=== PATIENT | male | born 1955 | race Hispanic/Latino ===

== ENCOUNTER 2017-10-31 11:37 | Day surgery (SDC) | payer OTHER ==
--- OUTSIDE RECORDS SUMMARY | 2017-10-31 11:40 | XMS REPORT ---
:1955 Author Organization eClinicalWorks Care Team Providers Name Role Phone Julius Sandeep Provider Role Unavailable Allergies No Known Allergies Problems Problem Type Condition Code Onset Dates Condition Status Assessment Acute non-recurrent maxillary J01.00 Active sinusitis Problem Nonintractable headache, unspecified R51 Active chronicity pattern, unspecified headache type Assessment Upper respiratory tract infection, J06.9 Active unspecified type Problem Prediabetes R73.03 Active Problem Cough R05 Active Problem Neuropathy G62.9 Active Problem HTN (hypertension), benign I10 Active Problem 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 Problem Bronchitis J40 Active Problem Obstructive sleep apnea (adult) G47.33 Active (pediatric) Medications Medication Code Code Instructions Start End Status Dosage System Date Date Candesartan Cilexetil [facility] 32469667804 32 MG Orally Active 1 tablet Once a day ProAir RespiClick [facility] 93506354860 108 (90 Base) Active 2 puffs MCG/ACT as needed Inhalation every 6 hrs Furosemide ND 68670762320 40 MG Orally Active 1 tablet Once a day Spironolactone ND 73690578292 25 MG Orally Active 1 tablet Once a day with food Amoxicillin-Pot ND 65199237473 875-125 MG Oct 08Oct Active 1 tablet Clavulanate Orally every 2017 18, 12 hrs 2018 Lyrica [facility] 11940920146 75 MG Orally Active 1 capsule Once a day Hydrochlorothiazide ND 47086004736 25 MG Orally Active 1 tablet Once a day in the morning Results No Known Results Summary Purpose eClinicalWorks Submission
--- OUTSIDE RECORDS SUMMARY | 2017-10-31 11:40 | XMS REPORT ---
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 Problem Bronchitis J40 Active Problem Obstructive sleep apnea (adult) G47.33 Active (pediatric) Assessment Prediabetes R73.03 Active Assessment Nonintractable headache, unspecified R51 Active chronicity pattern, unspecified headache type Assessment Change in bowel habits R19.4 Active Assessment Obstructive sleep apnea (adult) G47.33 Active (pediatric) Assessment 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 Assessment Abdominal pain, right lateral R10.9 Active Medications Medication Code Code Instructions Start End Status Dosage System Date Date Candesartan Cilexetil [facility] 01743513444 32 MG Orally Active 1 tablet Once a day Furosemide ND 71409599783 40 MG Orally Active 1 tablet Once a day Lyrica ND 02351012888 75 MG Orally Active 1 capsule Once a day ProAir RespiClick [facility] 17086272971 108 (90 Base) Active 2 puffs MCG/ACT as needed Inhalation every 6 hrs Hydrochlorothiazide ND 00470167119 25 MG Orally Active 1 tablet Once a day in the morning Spironolactone ND 92948252488 25 MG Orally Active 1 tablet Once a day with food Results No Known Results Summary Purpose eClinicalWorks Submission
--- OUTSIDE RECORDS SUMMARY | 2017-10-31 11:40 | XMS REPORT ---
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 47489854773 40 MG Orally Active 1 tablet Once a day ProAir RespiClick [facility] 26234839706 108 (90 Base) Active 2 puffs MCG/ACT as needed Inhalation every 6 hrs Spironolactone ND 94776915356 25 MG Orally Oct Active 1 tablet Once a day , with food 2017 Hydrochlorothiazide ND 91147544276 25 MG Orally Active 1 tablet Once a day in the morning Lyrica ND 44398600413 75 MG Orally Active 1 capsule Once a day Candesartan Cilexetil ND 83040902867 32 MG Orally Active 1 tablet Once a day Results No Known Results Summary Purpose eClinicalWorks Submission
[2017-10-31] MEDS ORDERED: Ringers Lactate 1,000 ML IV ONE (12:36)
[2017-10-31] MEDS ORDERED: PROPOFOL 200 MG/20 ML VIAL IV ONE (14:13)
[2017-10-31] MEDS ORDERED: LIDOCAINE 1% MPF 2 ML AMPULE ONE (14:14)
--- NOTE | 2017-11-01 01:29 | OP ---
Date of Procedure: 10/31/2017 Surgeon: Delroy Petersen MD Procedure To Be Performed: Colonoscopy. Performing Physician: Delroy Petersen M.D. Indication For Procedure: Modification of bowel habits and proctalgia. Plan For Anesthesia: Monitored anesthesia care. Complexity: Average. Technique: After obtaining informed consent from the patient and explaining risks and complications which include, but are not limited to bleeding, infection, perforation, and anesthesia complications, the patient was placed in the left lateral position and sedation was given. From then on, a digital rectal exam was performed and a scope was inserted into the rectum and carefully guided up till the cecum. Subsequently, the scope was gradually withdrawn while carefully examining the mucosa. Qualit y of prep was fair with [place] prep score 2+2+2 equal to 6 x 9. Scope withdrawal time was 11 minutes . Findings: Normal digital rectal exam. Grade 1 internal hemorrhoids found on retroflexion. A few sm all diverticula seen in the sigmoid. A 4-mm polyp was seen in the sigmoid, removed with hot biopsy. Diminutive polyp was seen in the transverse colon. This was removed by cold forceps. Both polyps s ent to pathology for analysis. No other gross abnormality was seen in the colon. Complications: None. Tolerance To Anesthesia: Excellent. Postoperative Diagnoses: Diverticulosis, polyps. Plan: 1.Await pathology results. 2.Follow up in the GI clinic in 2 weeks. 3.Repeat colonoscopy in 3-5 years based on pathology. US/MODL Voice ID: [id number] Report ID: [id number]
== END 2017-10-31 15:14 | disposition home health service (06) ==
LOC: OR 11:37
PROVIDERS: ATTEND Internal Medicine Gastroenterology
PROC: 0DBL8ZX Excision of Transverse Colon, Via Natural or Artificial Opening Endoscopic, Diagnostic (ICD-10-PCS; 2017-10-31)
PROC: 0DBN8ZX Excision of Sigmoid Colon, Via Natural or Artificial Opening Endoscopic, Diagnostic (ICD-10-PCS; principal; 2017-10-31 13:45)
DX: K62.89 Other specified diseases of anus and rectum (principal); K64.0 First degree hemorrhoids; K57.30 Diverticulosis of large intestine without perforation or abscess without bleeding; K63.5 Polyp of colon; Z86.010 Personal history of colon polyps; G47.33 Obstructive sleep apnea (adult) (pediatric); I10 Essential (primary) hypertension; E66.9 Obesity, unspecified
CPT/HCPCS: 88305; J2001

== ENCOUNTER 2019-08-11 07:44 | Emergency (ER) | payer OTHER ==
--- OUTSIDE RECORDS SUMMARY | 2019-08-11 07:55 | XMS REPORT | Clinical Summary ---
:1955 Author Organization [facility] Address [address] [place] [address] Care Team Providers Name Role Phone Jen Chen Primary Care Provider Allergies Active Allergy Reactions Severity Noted Date Comments Gabapentin Hives 10/27/2018 Tetanus Vaccines And Toxoid Hives 10/27/2018 Medications Medication Sig Dispensed Refills Start Date End Date Status spironolactone Take 25 mg 0 Acti ve (ALDACTONE) 25 MG by mouth tablet daily. ranitidine (ZANTAC) Take 150 mg 0 Active 150 MG tablet by mouth 2 (two) times daily. furosemide (LASIX) 40 Take 40 mg 0 Active MG tablet by mouth daily. candesartan (ATACAND) Take 32 mg 0 Active 32 MG tablet by mouth daily. sucralfate (CARAFATE) Take 1 g by 0 Active 1 gram tablet mouth 2 (two) times daily before meals. candesartan-hydrochlo Take 1 0 11/05/19 19 Discontinued rothiazide (ATACAND tablet by HCT) 16-12.5 mg per mouth daily. 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 Never 11/04/2018 How many drinks containing alcohol do you have on a typical Not asked day when you are drinking? How often do you have six or more drinks on one occasion? No t asked Sex Assigned at Date Recorded Not on file Job Start Date Occupation Industry Not on file Not on file Not on file Travel History Travel Start Travel End No recent travel history available. Last Filed Vital Signs Vital Sign Reading Time Taken Blood Pressure 138/71 11/06/2018 5:52 PM CDT Pulse 81 11/06/2018 5:52 PM CDT Temperature 36.7 C (98.1 F) 11/06/2018 5:52 PM CDT Respiratory Rate 17 11/06/2018 5:52 PM CDT Oxygen Saturation 94% 11/06/2018 5:52 PM CDT Inhaled Oxygen Concentration - - Weight 118.3 kg (260 lb 12.9 oz) 11/06/2018 11: 00 AM CDT Height 170.2 cm (5' 7") 11/06/2018 11:00 AM CDT Body Mass Index 40.85 11/06/2018 11:00 AM CDT Plan of Treatment Not on file Procedures Procedure Name Priority Date/Time Associated Diagnosis Comme nts LARYNGOSCOPY,MICROSUSP 11/06/2018 3:54 PM 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 CONFIRMATION #[id number]. 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 CONFIRMATION #[id number]. TISSUE EXAM AP Routine 11/06/2018 3:36 PM CDT Resu lts for this procedure are in the results sec tion. ECG 12-LEAD Routine 11/04/2018 11:54 AM CDT Procedure Note - Interface, External Ris In - 11/04/2018 5:07 PM CDT Ventricular Rate 55 BPM Atrial Rate 55 BPM P-R Interval 186 ms QRS Duration 88 ms Q-T Interval 442 ms QTC Calculation(Bazett) 422 ms P Arnett 36 degrees R Arnett 33 degrees T Arnett 60 degrees Sinus bradycardia Otherwise normal ECG No previous ECGs available ECG 12-LEAD Routine 11/04/2018 11:54 AM CDT Resu lts for this procedure are i n the results section . HEMOGLOBIN Routine 11/04/2018 11:52 AM CDT Resu lts for this procedure are i n the results section . ELECTROLYTE PANEL Routine 11/04/2018 11:52 AM CDT Results for this procedure are i n the results section . BUN AND CREATININE W/RATIO Routine 11/04/2018 11:52 AM CDT Results for this procedure are i n the results section . after 08/10/2018 Results Tissue Exam (11/06/2018 3:36 PM CDT) Case Report Surgical Pathology Report Case: [id number] [facility] Authorizing Provider:Mitch Reeves MD Collected: 11/06/2018 1536 [facility] Ordering Location: [facility] PERIOPERATIVE Received:11/09/2018 0814 SERVICES Pathologist: Miriam Barajas MD Specimen:Lesion, rig ht vocal fold leion DIAGNOSIS RIGHT VOCAL CORD, LARYNGOSCOPIC EXCISION OF LESI ON: [facility] - VOCAL CORD POLYP [facility] - NEGATIVE FOR DYSPLASIA OR MALIGNANCY Signing Pathologist Direct Phone Line: [phone] CPT Code(s) 82790 [facility] CLINICAL HISTORY Benign neoplasm of larynx, [facility] behavior of respiratory organ SPECIMEN SOURCE Lesion tissue right vocal [facility] fold lesion [facility] ER GROSS DESCRIPTION Received in formalin labeled C [facility] with the patient's name, [facility] accession number and "lesion right vocal fold lesion" is a 0.2 cm in greatest dimension, velazquez-white to red-brown tissue. The specimen is submitted in toto in cassette A1. KM/ew MICROSCOPIC DESCRIPTION PERFORMED [facility] Specimen Tissue Performing Organization Address City/State/Zipcode Phone Number [facility] [address] [place] [address] CENTER ECG 12 lead (11/04/2018 11:54 AM CDT) Specimen Narrative Performed At Ventricular Rate 55 BPM GE MUSE Atrial Rate 55 BPM P-R Interval 186 ms QRS Duration 88 ms Q-T Interval 442 ms QTC Calculation(Bazett) 422 ms P Arnett 36 degrees R Arnett 33 degrees T Arnett 60 degrees Sinus bradycardia Otherwise normal ECG No previous ECGs available Confirmed by Reggie JOHNSON MICHAEL ([id number]) on 11/05/2018 7:13:23 AM Procedure Note Interface, External Ris In - 11/05/2018 7:13 AM CDT Ventricular Rate 55 BPM Atrial Rate 55 BPM P-R Interval 186 ms QRS Duration 88 ms Q-T Interval 442 ms QTC Calculation(Bazett) 422 ms P Arnett 36 degrees R Arnett 33 degrees T Arnett 60 degrees Sinus bradycardia Otherwise normal ECG No previous ECGs available Confirmed by Reggie JOHNSON MICHAEL ([id number]) on 11/05/2018 7:13:23 AM Performing Organization Address [facility] Phone Number MUSE BUN and Creatinine (11/04/2018 11:52 AM CDT) BUN 13 7 - 21 mg/dL [facility] Creatinine 0.95 0.57 - 1.25 mg/dL [facility] EGFR 81Comment: ESTIMATED GFR IS mL/min/1.73 sq m [facility] NOT ACCURATE CREATININE [facility] CLEARANCE IN PREDICTING GLOMERULAR FILTRATION RATE. ESTIMATED GFR IS NOT APPLICABLE FOR DIALYSIS PATIENTS. Specimen Blood Performing Organization Address [facility] Phone Number [address] [address] CENTER Hemoglobin (11/04/2018 11:52 AM CDT) Hemoglobin 14.2 13.7 - 17.5 GM/DL [facility] Specimen Blood Performing Organization Address [facility]/Zipcode Phone Number [place] [phone] [place] [address] CENTER Electrolytes (11/04/2018 11:52 AM CDT) Sodium 140 136 - 145 meq/L [facility] Potassium 4.2 3.5 - 5.1 meq/L [facility] Chloride 106 98 - 107 meq/L [facility] CO2 29 22 - 29 meq/L [facility] Specimen Blood Performing Organization Address City/State/Zipcode Phone Number [facility] [address] [place] [address] CENTER after 08/10/2018 Insurance Payer Benefit Plan / Group Subscriber ID Type Phone A liza BATES xxxxxxxxxxx
--- OUTSIDE RECORDS SUMMARY | 2019-08-11 07:56 | XMS REPORT | Continuity of Care Document ---
:1955 Author Organization [facility] t Address [address] [place] [address] Care Team Providers Name Role Phone Jen Chen Primary Care Physician Doctor Unassigned, Name Attending Clinician Unavailable JOE Attending Clinician Unavailable Joe MEJIA Attending Clinician Alejandra Alejandro MD Attending Clinician Adrien YO Attending Clinician Joe MEJIA Attending Clinician JOE Admitting Clinician Unavailable Payers Payer Name Policy Policy Number Effective Expiration Source Type Date Date AMBETTERAMBETTER xxxxxxxxxxx [facility] SUPERIORxxxxxxxxxxx [facility] Problems Condition Condition Condition Status Onset Resolution Last Treating Co mments Source Name Details Category Date Date Treatment Clinician Date 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 11-06 [facility] 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 other on other [facility] - enabling enabling Memori a machines machines l and and Outpati devices devices ent Clinics Nonintract Nonintract Diagnosis Active [facility] able able [facility] - headache, headache, Baldo selene unspecifie unspecifie l d d Outpati chronicity chronicity en t pattern, pattern, Clinic s unspecifie unspecifie d headache d headache type type HTN HTN Problem Active [facility] (hypertens (hypertens Bebe kes - ion), ion), Memoria benign benign l Outpati ent Clinics Prediabete Prediabete Diagnosis Active [facility] Neuropathy Neuropathy Problem [facility] Obstructiv Obstructiv Problem Active [facility] e sleep e sleep [facility] - apnea apnea Memoria (adult) (adult) l (pediatric (pediatric Ou tpati ) ) ent Clinics Diverticul Diverticul Problem Active [facility] itis itis [facility] Adult BMI Adult BMI Diagnosis Active [facility] 40.0-44.9 40.0-44.9 [facility] s - kg/sq m kg/sq m [facility] l Outpati ent Clinics Allergic Allergic Problem Active [facility] to tetanus to tetanus Bebe kes - vaccine vaccine Memoria l Outpati ent Clinics Allergic Allergic Problem Active [facility] rhinitis, rhinitis, [facility] - unspecifie unspecifie Me moria d d l seasonalit seasonalit Ou tpati y, y, ent unspecifie unspecifie Cl inics d trigger d trigger 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 l Outpati ent Clinics Loss of Loss of Problem Active [facility] balance balance [facility] Decreased Decreased Diagnosis Active [facility] GFR GFR [facility] Dehydratio Dehydratio Diagnosis Active [facility] n n [facility] Elevated Elevated Diagnosis Active [facility] alkaline alkaline [facility] - phosphatas phosphatas Me moria e level e level l Outpati ent Clinics Calculus Calculus Problem Active [facility] of right of right [facility] - kidney kidney [facility] l Outpati ent Clinics Leukocytos Leukocytos Problem Active [facility] is, is, [facility] - unspecifie unspecifie Me moria d type d type l [facility] ent Clinics 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 gabapent DA Active [place] [facility] in 05-29 [place] 00:00: d 00 [facility] Tetanus Adverse Active Info Not [facility] Reaction Available [facility] Gabapent Adverse Active Info Not [facility] in Reaction Available [facility] Social History Social Habit Start Date Stop Date Quantity Comments Source History SDOH Alcohol [facility] Std Drinks [facility] History SDOH Alcohol [facility] Binge [facility] Sex Assigned [facility] [place] [facility] - [facility] History SDOH Alcohol 2018-11-04 2018-11-[address] [facility] - Frequency 00:00:00 00:00:00 [facility] Smoking Status Start Date Stop Date Source Never smoker [facility] edical [place] Medications Ordered Filled Start Stop Current Ordering Indication Dosage Frequency Signature Comments Components Source Medication Medication Date Date Medication? Clinician (SIG) Name Name Montelukast Montelukast Yes Sandeep [address] Sodium Sodium 1-14 [place] [facility] - 00:00: Memoria 00 [facility] sucralfate Yes 1g Take [address] [address] (CARAFATE) 04 by mouth 2 [place] es - 1 gram 10:51: (two) Medical tablet 22 times Center daily before meals. spironolact Yes 25mg QD Take [address] one -04 by mouth [facility] - (ALDACTONE) 10:50: daily. Medi jef 25 MG 42 Center tablet ranitidine Yes 150mg Q.5D Take [address] (ZANTAC) 9-04 mg by [facility] - 150 MG 10:50: mouth 2 Medical tablet 42 (two) Center times daily. furosemide Yes 40mg QD Take [address] (LASIX) 40 11-04 by mouth [facility] - MG tablet 10:50: daily. Medica l 42 [place] candesartan Yes 32mg QD Take [address] (ATACAND) 11-04 by mouth [facility] - 32 MG 10:50: daily. Medical tablet 42 [place] candesartan 2019- No 1{tbl} QD Take [address] -hydrochlor 11-04 tablet by Bebe kes - othiazide 10:47: 00:00 mouth Medica l (ATACAND 33 :00 daily. [place] HCT) 16-12.5 mg per tablet Candesartan Candesartan Yes Sandeep [address] Cilexetil Cilexetil [place] [facility] Lansoprazol Lansoprazol Yes Sandeep [address] e e [place] [facility] Bystolic Bystolic Yes Snadeep [address] [place] [facility] Furosemide Furosemide Yes Sandeep [address] [facility] [place] [facility] Spironolact Spironolact Yes Sandeep [address] one one [place] with food [facility] Tizanidine Tizanidine Yes Sandeep TAKE [address] [facility] HCl HCl [place] TABLET BY [facility] - MOUTH Memoria EVERY 12 l HOURS Outpati NEEDED ent Clinics Edarbyclor Edarbyclor Yes Sandeep [address] [facility] [address] [place] [facility] NIFEdipine NIFEdipine Yes Sandeep [address] ER ER [place] on an [facility] - empty Memoria stomach l [facility] Nifedipine Nifedipine Yes Sandeep not [facility] ER ER [place] defined [facility] Immunizations Ordered Filled Immunization Date Status Comments Sour e Immunization Name Name Afluria single dose Afluria single dose 2019-01-[address] [facility] [address] [facility] - [facility]00 [facility] Vital Signs Vital Name Observation Time Observation Value Comments Source Systolic blood 2018-11-06 17:52:00 138 mm[Hg] [facility] Diastolic blood 2018-11-06 17:52:00 71 mm[Hg] [facility] Heart rate 2018-11-06 17:52:00 81 /min [facility] Body temperature 2018-11-06 17:52:00 36.72 Queenie [facility] Respiratory rate 2018-11-06 17:52:00 17 /min [facility] Oxygen saturation in 2018-11-06 17:52:00 94 /min [facility] Arterial blood by Medical Ce nter Pulse oximetry Body height 2018-11-06 11:00:00 170.2 cm [facility] Body weight Measured 2018-11-06 11:00:00 118.3 kg [facility] BMI 2018-11-06 11:00:00 40.85 kg/m2 [facility] Procedures Procedure Date / Time Performing Clinician Source Performed LARYNGOSCOPY,EXCISION/ 2018-11-06 15:54:00 Mitch Diaz CH, I [facility] - RECONSTRUCTION W/ FLAP Medical C enter LARYNGOSCOPY,MICROSUSPENSI 2018-11-06 15:54:00 PortilloMigue martini [facility] - ON EXCISION TUMOR [facility] TISSUE EXAM 2018-11-06 15:36:[address] [facility] ECG 12-LEAD 2018-11-04 11:54:41 Unknown, Hl7 Doctor [facility] BUN AND CREATININE W/RATIO 2018-11-04 11:52:[address] [facility] ELECTROLYTE PANEL 2018-11-04 11:52:00 Toby Bolden [facility] HEMOGLOBIN 2018-11-04 11:52:00 Toby Bolden [facility] Encounters Start End Encounter Admission Attending Care Care Encounter Source Date/Time Date/Time Type Type Clinicians Facility Department ID 2019-08-04 2019-08-04 [id number] [facility] [address] 09:30:00 09:30:00 Fashion To Figure LuIntersect ENT [facility] Medicine Outpati ent Clinics 2019-07-06 2019-07-06 [facility] [id number] 09:00:00 09:00:00 t ONTRAPORT [facility] Medicine Outpati ent Clinics 2019-06-07 2019-06-07 [facility] [id number] 09:35:00 09:35:00 t ONTRAPORT [facility] Medicine Outpati ent Clinics 2019-06-03 2019-06-03 [facility] [id number] 09:00:00 09:00:00 t ONTRAPORT [facility] Medicine Outpati ent Clinics 2019-05-21 2019-05-21 [facility] [id number] 10:12:00 10:12:00 t ONTRAPORT [facility] Medicine Outpati ent Clinics 2019-05-14 2019-05-14 [facility] [id number] 16:37:00 16:37:00 t ONTRAPORT [facility] Medicine Outpati ent Clinics 2019-05-13 2019-05-13 [facility] [id number] 10:30:00 10:30:00 t ONTRAPORT [facility] Medicine Outpati ent Clinics 2019-04-19 2019-04-19 [facility] [id number] 08:30:00 08:30:00 t ONTRAPORT [facility] Medicine Outpati ent Clinics 2019-04-14 2019-04-14 Orders Doctor ALLEN [id number] 00:00:00 00:00:00 Only Unassigned, BLACK [id number] [facility] [id number] 2019-03-16 2019-03-16 [facility] [id number] 13:47:00 13:47:00 t ONTRAPORT [facility] Medicine Outpati ent Clinics 2019-03-16 2019-03-16 [facility] [id number] 09:30:00 09:30:00 t Aledo Aledo relocality s - Drive [facility] Medicine Outpati ent Clinics 2019-02-08 2019-02-08 [facility] [id number] 14:00:00 14:00:00 t Aledo Aledo [facility]ED[facility] Luke s - Drive [facility] Medicine Outpati ent Clinics 2019-01-12 2019-01-12 [facility] [id number] 14:45:00 14:45:00 t Aledo Aledo PHYSICIANS IMMEDIATE CARE [facility] s - Drive [facility] Medicine Outpati ent Clinics 2018-12-10 2018-12-10 [facility] [id number] 14:30:00 14:30:00 t Aledo BoardEvals s - Drive [facility] Outpati ent Clinics 2018-10-14 2018-10-14 Office Jurado [facility] [id number] 08:46:19 09:29:51 Visit Bridgette AMBULATOR [id number] Y [id number] 2018-10-05 2018-10-05 Office Joe [facility] [id number] 10:33:46 12:48:03 Visit Julina AMBULATOR [id number] Y [id number] 2018-09-28 2018-09-28 [facility] [id number] 10:15:00 10:15:00 t Aledo BoardEvals s - Drive [facility] Medicine Outpati ent Clinics 2018-09-11 2018-09-11 [facility] [id number] 16:00:00 16:00:00 t Urgent Ur[facility] Outpati ent Clinics 2018-09-10 2018-09-10 [facility] [id number] 16:37:00 16:37:00 t Aledo Aledo relocality s - Drive [facility] Medicine Outpati ent Clinics 2018-06-29 2018-06-29 [facility] [id number] 10:00:00 10:00:00 t ONTRAPORT [facility] Medicine l Medicine Outpati ent Clinics 2018-04-29 2018-04-29 [facility] [id number] 10:00:00 10:00:00 t ONTRAPORT [facility] l Medicine Outpati ent Clinics 2018-04-07 2018-04-07 [facility] [id number] 09:45:00 09:45:00 t ONTRAPORT [facility] Medicine l Medicine Outpati ent Clinics 2018-03-27 2018-03-27 [facility] [id number] 10:42:00 10:42:00 t Urgent Urgent Care L u[facility] - Care Clinic [facility] Clinic l Outpati ent Clinics 2018-03-27 2018-03-27 [facility] [id number] 09:30:00 09:30:00 t Urgent Urgent Care L [facility] - Care Clinic [facility] Clinic l Outpati ent Clinics 2018-03-25 2018-03-25 [facility] [id number] 09:45:00 09:45:00 t ONTRAPORT [facility] Medicine l Medicine Outpati ent Clinics 2017-10-08 2017-10-08 [facility] [id number] 13:00:00 13:00:00 t ONTRAPORT [facility] l Medicine Outpati ent Clinics 2017-09-23 2017-09-23 [facility] [id number] 10:00:00 10:00:00 t ONTRAPORT [facility] Medicine l Medicine Outpati ent Clinics 2017-06-09 2017-06-09 [facility] [id number] 09:30:00 09:30:00 t ONTRAPORT [facility] Medicine Outpati ent Clinics Results Test Description Test Time Test Comments Results Result Comments Source Tissue Exam 2018-11-10 15:15:00 Test Item Value Reference Range Interpretation Comme nts Case Report (test code = 104) Surgical Pathology Report Case: [id number] Authorizing Provider: Mitch Diaz MD Collected: 11/06/2018 1536 Ordering Location: [facility] Received: 11/09/2018 0814 SERVICES Pathologist: Miriam Barajas MD Specimen: Lesion, right vocal fold leion DIAGNOSIS (test code = 3220) w3tuuLUfJKFub7rnCOShdNXfAtNkYaRhSsSlWz pc dRGkZAxlxjYzPQquq7RgV4GgMbTpCUmqklWaXPQj PmirhrxtJKMqEBM4upSrUQEaCHkyUSPpHXndDw3m jIPsxHosRsEdNWOlo9nnbkKNclduuRf9vVrkH93u m6P2OmisG1bzZCFmGNWtX7HdMY9iAURnCnr6FQY8 UNM6JFMrPFCwW1AkIS4uHQDvoGUvXWg9l0rlkDrj NJMsSBP9c4bzTCcardPnNP5bhu9ocVq2a9zykbSa FNCaUORcjFVAHPLyX6TtdSiiJk9qqGo5eWwrHtub WRR0Tpx9CW9wsq56nhl4aUpxCVDwcfgdDfP0ELuo JQJuauxsWBt9AKdqQVXmuQxyVHszULPoqcogLHno ENRtmSpbSSbsXBJsEenpKRrkBVWzONP2LZdgh741 WJP9LNcpg0iej7bytVVkEiy5ESNuReFbHixrUJfv s2Olz1sgRLElmd8nKOD4mAMzzDvku4R8oKAiVMPw rAOfrbKoQUAmRyG2UKymSI5uky61VQVqITA7sr7j wPYmaAgtrcHxjKVwZYqzU1OsJVUdr279UXHdU6Mb DSLak4Y8lwKaMgKmRSAoyMU7upL4NLLxGOj8oHLp wkD0ctPqpDAeN6bejF73VuMnaLLtE5UfeD20PdJy zOEmI3SkfE47EdZuyQHeT9BlsD29BoNlxUSxTIYd wQDhZl3dsAVjvLFdj3RfiWTlHMmlV00mh145ZMCc yzSiU9louSBpundsaHPlrlkyJQdqajI6ODDiEYYg YWluXGYwXGZzMjBcbGFuZzEwMzNcaGljaFxmMFxk XpKeBNIaLFyvF0ueYuJsJoHtOXWPRAcFSNYFG6IG SBSIU3JALJLCIERUXaxBU8URETvQVGTBE9iWFA1V LS6HSYmXI1yBAkoiyEZePACzFJAHD9OZVJHUXiOi ZB1KUKAfoHZhILUoYI2IA9JIDDGUIRLNClUAESAC DQSRYRLwO1SwWEJVFLkTMP6IRYbvKSO8x6wzvXIe XHNzdGUxODAwMFxhbnNpXGRlZmxhbmcxMDMzXGZ0 vkDjMUKdGMocNOBbIKwhUj3qxCIjrJgfFoAuPFPm h7uxejCJxvcbiXd3r9vtBSTwCmM6eOQnBQzwQ8cd bqPcdMUnERJvONs0rN88JMOtqW2xmSZrQXabpgCu DyF1OZqaBSMyHoV7KCVxjDWvUWOdZ6ymRFZyZCdq TVXrQJxdwMXmMMP7bWfcy2W3pQDkuIVgjYxfIhCc NvTcLlEVm0LrCDs1kEawR6LfRAFwUhT1mKWeRJJh MRrqGXQyLMOosjH6jJ09USfvaxR7bBApi8Lrg58n u000qM3itRYwHIP1OVVyIIOhvZQmVNZeXTN7ZIFv lXHaC6blCNCjUD1ggevzIJtjGWylGQWcpQK5CZTh xQMoT9NbVSGcNUafAWYrnmq4ZxQpFe4tlNEzbWih TSkmj8ylc7ilgWAgGle7VHXpQhEwXgwmQCfhw7Xr v3ywGTJvyy8ePUT6hTNugCjxd4T7bZQfTCVjyRLy TSKdRF0aqVVxVFScpE3gngywBLWcZjDqmyiaJVFp nMloxlSaXa0luXdmOCD4KWqfA3qqxO5bRoF8GNxw W8intV2iOJe1MLwnCDMyyDI6rsV3YSYvgARbK1Ox iV9hDJHdJP0gwzb7r4rxMZF3HMclNGSbOuM6agN6 GMJweWKjYKCkjUygNMldj496UJO6VbGjASNsy3Dz J5UkrOomJ00fzHtcW79fJRNwgWoxdB4uqKteyL4u JfXoWeUrHNmfoCcaQU0tXVWiL6opmZNkLLUlFRZw N3ljMpXhhC9lvRuxUQtqpnIaLDFzDrg0UHHpxTOi BBGxOmg7TVCqCLIzW93ngtiwTTU2tE9bp6dnc1Cd JXwnQAT2VYDwj43cVWkhjzD6DDkgUn1tDoSfELQ7 HQyxUPW9pB== CPT Code(s) (test code = 3357) g6jzsZSvBTLduVWaJvBiVAVlDNWif0ldGKPe bGFu GnWrSoEkUsGtToeicZTyRKVwDlMxe2ikt181wOIm f1awIGUcXbL8xFWwBAXjhMTlN958w6vrc5xpylOw dCO2ZPTbFOS1BPofulMjssH2LHfzwCZwDcO9YGvf mbHlJJfnonGzzyRqCrx8CPIvY525BTU9cKmty9dp WOT3URRnXBSeDtLvJr6akTOnO418LWZuGARETGHt mQm0HVXkwiRuwnSjqUFNk070R853a9exIDKaggFc jDiCzzbjn5evS747OKIraYZzeaTnAkCgTGEwdPVg cOF7WJRzED0kphqiAzMvDI4leikoLfRkRR6lads8 JnYjAQ8pjqhvWiYqGLcqZVCgdotzIHLel3Hfswdj HT9lL3Jdw7X2xP8xzQGaSRBhtDNxQlCcSRMoog9y vZGyTYvhn2SjMXQ6pvP2bCIsdBRhDZSwFW64Trjj t4XtNrmqTSG2RTNvtxHei0Seg0eyHkWhcwYgS4nb B9HoVHMvLTHmPIBeDhSnjyEkv0Irv7AubGHidLt7 t7kwGEXiWXGzsDeyl1ntHMG6PAJdI9I7kOVnl6ab PBnoOGZofDZ0txevNQxtZCKozbF6bhuaBEunVJQg zTZ2iexgJJgiQBUqEoC7ztsdXWncMEKnCDY4HHvs i916NKJ1ZJrpOsypDSuaOURczpOefcMjpRtyIANu HTPyVHbvJBGkZWrzXGBuQOJyYpKhpXxdhTsrmF6r ZtKrKqVwPFmzMD0oEOVpA4hthUMcQHIaQUZfA3qe RyHwbW7zrRyrEYzatwIoOAc4KhJ4ETZiwu9= CLINICAL HISTORY (test code = 3356) v0muuNUyIBFpdRLbLgEaEPSkIGRus5i cZGVmbGFu ZwOcNvMvKpPsSrkbcYRyAAQvQkDcw9uhu310pLSv a4giDUFqJwW7yRAfXBHtmQGrQ516d7aci6djlbXk tTE1CWWhRED8YEkywvFxdaO0XDsieXLtAcG9BTvq ksNmYEqapoTwvyGtBfb9KXLpD550JRF2fChvt4ra KBJ2ZJCgMJSjWqHhRf6jdGYiD087XPGtEGUGACSu lMz0WKFeyxKiwoJaqWDZp585X462l1lsACTceoTg xTeAhegsq9vtD202RUYraIIoxtXrJpYqVPIheFFo aUP2JLJxQM5ituuhZmQeME0xnrerTcNwOP6njmv3 DmMzHW7xwjfdFgKtNGlmSXUxcpytJWMgv9Ewrczt ZG6vA1Lat3P3tQ9wtEXuMNOsaBLxTiRkTHTobd9s gXBoITvka2LhNMQ5bgY6fKJuvCMpCGPvRN56Vtbm y5YhOdwrAMN4DLXoafYuu4Uve7gzZbKwozAyU9fk P8ArXHAhHEUhVYKeSuTexvVts2Bwu8DxeFRzlQj9 l3mlDJSkEYZpcOjku4fvIJQ1EGFbR8V2sEArx8zb YHpzFAVtiCA7gkojKItfFCTjhhW1tbhkJLvuZUNw dEA6oorzATdhZHGnSsR7ohjfRIelZAPmRCS5JQdk p606KHE9SRlwQnsuOSzcGERnanWmsoRryMuzAXNc SEGfEBrsJEGaHPlwCAWdORMbTaSzlAqdwUfhwK6l PaJcNuGxZXnqHD8qIDNnZ0lwcFRfJIPdHZLsT4tf LpSjxW6ixNfkDHfrrnReOHIshapafcLfPD5gjBOp tUCmGhGjYVZ2tiyrYD4yj0SwRCDxZH7aYGMbZ3Cx vWGzneXxIAnvrylsiaHtTxQaIEIitPBkgA9wnYWm cmdhblxwYXJ9 SPECIMEN SOURCE (test code = 3377) c1vzxUSgBCPufIJfAmDxPLBiHFHoj4fg ZGVmbGFu HoHmQpMtYiLiAnvudOTbLKXqSqEnl8yzx859gBZi d4vsWEGgXaL2iWOjAGPhfJYoA588c8azd3kvfsPn bKF4BRNzUNC6KXdsieTnhbW7CVcwyIWgPjW9VTsq owHgVGlohbKmdkIxBwc1SMKjH851SQI6mTfpi7fs QEO8FBWzGMFzZzQpKf7wfVTsH995IAHcMDRRWUJe jZt9UUNmjvBwubSltTHEv126U674c6meYPYbmrFy jYoSqfixy7okG347FNTcfYOcieAbPgQlXFZewLWf uBF4YGLnTD3yklagCbPpJY4ijorqOtMxEF8bkcj0 JrNuOP2cacflGcQcVLfnWCQuctizNFWzx4Vyfiga JH1vH4Lnw5O2kK5vqCOfUEWwhTKsAaZhYKLldi3a zQOqGGsrc9UkMEJ0xjV4sMPstPQiKYTmLZ89Wkns n2YqChqaCNK7TCHuctWdj7Uhk6rqJfIfklFgD8iw W3VdVFQzXUGzTMTyNtYydlDnr4Iyw6FtvGPwgAg0 w0apNKYtPYMosYfrc5wxDDW0XXEiA8N7pDEfo5ab NLqcIHBrmZD3rlnlOQecQIIueyK1wyztLLstJQYl kRW6bhacOSrtZWYnOrL3fiwlKGbpWCEfDIR8BTqw w501BOF1JHopWybnZHseRAHnmxGzgbJssPruSGYt BQGuMHvrYTNvAKsaXGNlSQJcJtCfgTyfyNlfiO2c WrMcTcKkYWmkMC8vYGDsW0czxLWfCFDdPZGwI4km IoTyfK5hqXqdZRuirmGyYUahj8evcwH7wUHjyCUl jodhzUUebz6iLUtoAe9aUUTcWFTvu79lCAHvhv7= GROSS DESCRIPTION (test code = 3366) b4zfoKBeXCSpdBKxLsDmYXYbFVInx3 lcZGVmbGFu [file] JReBZ3D1RMyaXEH4 MICROSCOPIC DESCRIPTION (test code = b0homKKlSAFtlPPkAcPoCNZvYPUkq4 [place] [address]) LpKmHgKwNxBuXulolJEqAAYrKeFbj6tad156rALy f3umLPEoQzS6nKAhEGHvwFWhR852k2gvf1cabkNf nRZ4QAPkLMT0UEnqrkZpccQ4MFtyxBNdFcN9YNwb alWcMUxsnxRiqdHyKft3PQTiA270DPE1kNneu5fc PVQ1ZNDnCUBaDvTkEm6plJKsX913UFBkTRRYTXLh eQb3ELLgoqYqrgMmdETKm995I143w3moNWHbehAd vTjZztakp5mzN102TAZqsKDnycNhClVrFDDooXGv bGB8IJZfTW3nkcgvXfGbTE7drudaMqSbCY1yjjv6 BePmSP5kolndAwZhMQruUEDuzvynJUFbq5Uxqruf ZD9qT2Eth3G9wE2nyULbAMVaqKIfCoAcWKFkvl1y dUYzWCjoo5VwHTR6bhQ9gXElgPVgXSSdIA59Vgyx n7QhVojiZXB1CXXptoPht9Gvq2qtEcZryxHyD5tw Y3ZqPMSbMAWmKIGpTxNtjpUgg5Uzb9VodSWawRt7 t9uuYHXdYBWgqBhql8bxEAH5XKZyJ3N3mGEma6hq QCvmEVWrlNK8pztbFJdgWERsavP4fldeWHrtSMEp pCA2rrfpTRqfXRYoTeA4llssHHtoBDMpIGC7PPpd c775QEQ0ASyyRujnHBppYOXeuaAudaSaqGxqGJOf KLQoGLkfJFPiICeuHDQqRZNySzZbyRgseQcffT6x WvLnPeSmAVekFS2wWJKfL2nztMGpOAUaCJIdP4ga GdMdcQ4cxTtjNSksdpRkOUXMJkOSOe1RDFzkIZA3 [facility] CenterT[facility] [id number] 15:15:00Surgical Pathology Report Case: [id number] Authorizing Provider: Mitch Diaz MD Collected: 11/06/2018 1536 Ordering Location: [facility] Received: 11/09/2018 0814 SERVICES Pathologist: Miiram Barajas MD Specimen: Lesion, right vocal fold leion RIGHT VOCAL CORD, LARYNGOSCOPIC EXCISION OF LESION: - VOCAL CORD POLYP - NEGATIVE FOR DYSPLASIA OR MALIGNANCY Signing Pathologist Direct Phone Line: [phone] signed by Miriam Barajas MD on11/10/2018 at 3:15 [id number] neoplasm of larynx, neoplasm of uncertain behavior of respiratory organLesion tissue right vocal fold lesion Received in formalin labeled with the patient's name, accession number and "lesion right vocal fold lesion" is a 0.2 cm in greatest dimension, velazquez-white to red-brown tissue. The specimen is submitted in toto in cassette A1. KM/ew PERFORMEDECG 12 [id number] 07:13:28Interface, External Ris In - 11/05/2018 7:13 AM CDTVentricular Rate 55 BPMAtrial Rate 55 BPMP-R Interval 186 msQRS Duration 88 msQ-T Interval 442 msQTC Calculation(Bazett) 422 msP [place] 36 degreesR [place] 33 degreesT [place] 60 degreesSinus bradycardiaOtherwise normal ECGNo previous ECGs availableConfirmedby Reggie JOHNSON, REGINA ([id number]) on 11/05/2018 7:13:23 [facility] Center[facility] 13:45:00 Test Item Value Reference Range Interpretation Comments Sodium (test code = 2951-2) 140 meq/L 136-145 Potassium (test code = 2823-3) 4.2 meq/L 3.5-5.1 Chloride (test code = 2075-0) 106 meq/L 98-107 CO2 (test code = 2028-9) 29 meq/L 22-29 Lab Interpretation (test code = Normal 74156-6) [facility] CenterB[facility] and [id number] 13:45:00 Test Item Value Reference Range Interpretation Comments BUN (test code = 13 mg/dL 7-21 3094-0) Creatinine (test code 0.95 mg/dL 0.57-1.25 = 2160-0) EGFR (test code = 81 mL/min/1.73 [place] [address]-9) ACCURATE CREATININE ADAM CANDICE IN PREDICTING GLOMERULAR FILT RATION RATE. ESTIMATED GFR IS NOT APPLICAB LE FOR DIALYSIS PATIEN TS. [facility] CenterELECTROLYTES2019-09-04 13:45:00 Test Item Value Reference Range Interpretation Comments SODIUM (BEAKER) (test code = 381) 140 meq/L 136-145 POTASSIUM (BEAKER) (test code = 4.2 meq/L 3.5-5.1 379) CHLORIDE (BEAKER) (test code = 382) 106 meq/L 98-107 CO2 (BEAKER) (test code = 355) 29 meq/L 22-29 BUN AND [id number] 13:45:00 Test Item Value Reference Range Interpretation Comments BLOOD UREA NITROGEN 13 mg/dL 7-21 (BEAKER) (test code = 354) CREATININE (BEAKER) 0.95 mg/dL 0.57-1.25 (test code = 358) EGFR (BEAKER) (test 81 mL/min/1.73 ESTIMA ALAINA GFR IS code = 1092) sq m NOT ACCURATE CREATININE CLEARANCE IN PREDICTING GLOMERULAR FILTRATION RATE . ESTIMATED GFR I S NOT APPLICABLE FOR DIALYSIS PATIEN TS. [id number] 13:28:00 Test Item Value Reference Range Interpretation Comments Hemoglobin (test code = 786-4) 14.2 13.7- 17.5 GM/DL Lab Interpretation (test code = Normal 91073-3) [facility] CenterHEMOGLOBIN2019-09-04 13:28:00 Test Item Value Reference Range Interpretation Comments HEMOGLOBIN (BEAKER) (test code = 14.2 GM/DL 13.7-17.5 410) [id number] 15:12:00 RUN DATE: 06/04/18 [facility] - LAB *LIVE* PAGE 1 RUN TIME: 1512 Specimen Inquiry RUN USER: INTERFACE PATIENT: JOHNY MORSE LOC: MARYAM U #: [id number] AGE/SX: 62/M ROOM: RE06/02/18REG DR: Delroy Petersen MD : 59 BED: DIS: STATUS: JUAN ALBERTO [facility] [place]LOC: SPEC #: [id number] RECD: 06/03/18 STATUS: NICKY DARREN #: [id number] MAYKEL: 06/02/18 [facility] DR: Delroy Petersen MD ENTERED: 06/03/18 SP TYPE: SURG OTHR DR: Jordin Madrid MD ORDERED: AB/[facility]/2, SURG PATH LVL 06/02, PATH STAIN GROU COPIES TO: Jordin Madrid MD [address] [place], [place] [id number] Delroy Petersen MD [address] [place], [place] [address] HISTOLOGY: TISSUE ID [id number] PCS JUNE LEV PROCEDURE DISPOSITION ____ ___ ___ ___ STOMACH, NOS A 1 1 AB/PAS AUGUSTO STOMACH, NOS A 1 2 PATH STAIN GROU ESOPHAGUS, NOS B 1 1 AB/PAS AUGUSTO PROCEDURES: ALBLUE (06/03/18-920) PAS (06/03/18920) SURG PATH LVL 4 (06/03/18) PATH STAIN GROU (06/03/18) TISSUES: A. STOMACH, NOS - GASTRIC BODY AND ANTRUM B. ESOPHAGUS, NOS - DISTAL ESOPHAGUS CLINICAL HISTORY HEARTBURN - R12; NAUSEA -R11.0; ABDOMINAL PAIN -R10.9 CPT CODES CPT CODE(S): 40899X5 , 24230 , 29947J8 , , , , FINAL DIAGNOSIS A. Stomach, body and antrum, biopsy: MILD CHRONIC GASTRITIS NEGATIVE FOR INTESTINAL METAPLASIA, DYSPLASIA, OR MALIGNANCY NEGATIVE FOR HELICOBACTER PYLORI ORGANISMS??? CONTINUED ON NEXT PAGE RUN DATE: 06/04/18 [facility] - LAB *LIVE* PAGE 2 RUN TIME: 1512 Specimen Inquiry RUN USER: INTERFACE S PEC #: [id number] PATIENT: MINIJOHNY BERMUDEZ #[id number] (Continued) FINAL DIAGNOSIS (Continued) B. 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 Gastric body and antrum biopsy. Received in formalin are seven saez tissue fragments, 0.2 - 0.5 cm, all as A. B. Distal esophagus biopsy. Received in formalin are three saez tissue fragments, 0.2 - 0.4 cm, all as B. ba/nr Grossing performed at [facility] Pathology, [facility], [address], [place] [address]. Handle Bender: Kevin Lloyd M.D. MICROSCOPIC DESCRIPTION A. Gastric body and antrum biopsy. Sections demonstrate gastric mucosa with mild chronic inflammation. No dysplasia or malignancy is identified. Alcian blue-PAS confirms the absence of intestinal metaplasia. The Diff Quik stain demonstrates no evidence of Helicobacter pylori organisms. B. Distal esophagus biopsy. Sections demonstrate squamous mucosa with basal cell hyperplasia and elongated papillae. Gastric cardia type mucosa with chronic inflammation is also identified. No dysplasia or malignancy is identified. Alcian blue-PAS confirms presence of focal intestinal metaplasia (goblet cells). Signed SIGNATURE ON FILE Brian Mares 06/04/18 1512 END OF REPORT
--- OUTSIDE RECORDS SUMMARY | 2019-08-11 07:56 | XMS REPORT ---
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
--- OUTSIDE RECORDS SUMMARY | 2019-08-11 07:56 | XMS REPORT ---
:1955 Author Organization eClinicalWorks Care Team Providers Name Role Phone Sandeep Madrid Provider Role Unavailable Allergies No Known Allergies [...] BMI 40.0-44.9 kg/sq m Z68.41 Active Medications No Known Medications Results No Known Results Summary Purpose [employer] Submission
--- OUTSIDE RECORDS SUMMARY | 2019-08-11 07:56 | XMS REPORT ---
:1955 Author Organization eClinicalWorks Care Team Providers Name Role Phone Julius Sandeep Provider Role Unavailable Allergies, Adverse Reactions, Alerts Substance Reaction Event Type Tetanus Info Not Available Drug Allergy Gabapentin Info Not Available Drug Allergy Problems Problem Type Condition Code Onset Dates Condition Statu s Assessment Decreased GFR R94.4 Active Assessment Dehydration E86.0 Active Assessment Elevated alkaline phosphatase level R74.8 Active Problem Nonintractable headache, R51 Act mireya unspecified chronicity pattern, unspecified headache type Assessment Allergic rhinitis, unspecified J30.9 Active seasonality, unspecified trigger Problem 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 Assessment Neuropathy G62.9 Active Problem HTN (hypertension), benign I10 A ctive Problem Prediabetes R73.03 Active Problem Obstructive sleep apnea (adult) G47.33 Active (pediatric) Problem 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 Problem Allergic rhinitis, unspecified J30.9 Active seasonality, unspecified trigger Assessment 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 Assessment Loss of balance R26.89 Active Problem Loss of balance R26.89 Active Assessment Diverticulitis K57.92 Active Problem Diverticulitis K57.92 Active Problem Neuropathy G62.9 Active Problem Allergic to tetanus vaccine Z88.7 Active Problem Adult BMI 40.0-44.9 kg/sq m Z68.41 Active Assessment Obstructive sleep apnea (adult) G47.33 Active (pediatric) Assessment Allergic to tetanus vaccine Z88.7 Active Assessment Prediabetes R73.03 Active Assessment Nonintractable headache, R51 Act mireya unspecified chronicity pattern, unspecified headache type Assessment HTN (hypertension), benign I10 A ctive Assessment 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 Assessment Adult BMI 40.0-44.9 kg/sq m Z68.41 Active Medications Medication Code Code Instructions Start End Status Dosage System Date Date Spironolactone [facility] 98585409170 25 MG Orally Active 1 tablet Once a day with food Montelukast [facility] 80253420349 10 MG Orally Mar 16, Active 1 t ablet Sodium Once a day 2019 Candesartan [facility] 37970877359 32 MG Orally Active 1 t ablet Cilexetil Once a day Furosemide ND 77516656221 40 MG Orally Active 1 ta blet Once a day Lansoprazole [facility] 41226487992 30 MG Orally Active 1 capsule Once a day Bystolic [facility] 24927887087 5 MG Orally May Active 1 table t Once a day 2019 Duloxetine HCl [facility] 15257953326 20 MG Orally Inactive 1 capsule Twice a day Furosemide [facility] 16756532523 40 MG Orally Active 1 ta blet Once a day Results No Known Results Summary Purpose eClinicalWorks Submission
--- OUTSIDE RECORDS SUMMARY | 2019-08-11 07:57 | XMS REPORT ---
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 Medications Medication Code Code Instructions Start End Status Dosage System Date Date Montelukast [facility] 25950242596 10 MG Orally Rickey 14, Active 1 t ablet Sodium Once a day 2019 Bystolic [facility] 73009475517 5 MG Orally Active 1 table t Once a day Lansoprazole [facility] 11391607417 30 MG Orally Active 1 capsule Once a day Duloxetine HCl [facility] 52703145141 20 MG Orally Inactive 1 capsule Twice a day Candesartan [facility] 86859167811 32 MG Orally Active 1 t ablet Cilexetil Once a day Furosemide ND 61271205975 40 MG Orally Active 1 ta blet Once a day Spironolactone [facility] 30827118385 25 MG Orally Active 1 tablet Once a day with food Tizanidine HCl [facility] 46026765968 4 MG Oral Active JC E 1 TABLET BY MOUTH EVERY 12 HOURS NEEDED Results No Known Results Summary Purpose eClinicalWorks Submission
--- OUTSIDE RECORDS SUMMARY | 2019-08-11 07:57 | XMS REPORT ---
[...] End Status Dosage System Date Date Candesartan [facility] 78376733089 32 MG Orally Active 1 t ablet Cilexetil Once a day Lansoprazole [facility] 81680253854 30 MG Orally Active 1 capsule Once a day Bystolic ND 40592725180 5 MG Orally Active 1 table t Once a day Furosemide ND 91840984502 40 MG Orally Active 1 ta blet Once a day Duloxetine HCl ND 00614453625 20 MG Orally Inactive 1 capsule Twice a day Furosemide ND 03861090789 40 MG Orally Active 1 ta blet Once a day Atenolol [facility] 43556449691 25 MG Orally May Inactive 0.5 Once a day 2019 tablet Montelukast [facility] 20585157267 10 MG Orally Mar 16, Active 1 t ablet Sodium Once a day 2019 Spironolactone [facility] 64739829385 25 MG Orally Active 1 tablet Once a day with food Spironolactone [facility] 91300704616 25 MG Orally Active 1 tablet Once a day with food Results No Known Results Summary Purpose eClinicalWorks Submission
--- OUTSIDE RECORDS SUMMARY | 2019-08-11 07:57 | XMS REPORT ---
[...] Medications Results No Known Results Summary Purpose [employer] Submission
--- OUTSIDE RECORDS SUMMARY | 2019-08-11 07:58 | XMS REPORT ---
:1955 Author Organization eClinicalWorks Care Team Providers Name Role Phone Preeti Madridh Provider Role Unavailable Allergies, Adverse Reactions, Alerts Substance Reaction Event Type Tetanus Info Not Available Drug Allergy Gabapentin Info Not Available Drug Allergy Problems Problem Type Condition Code Onset Dates Condition Statu s Assessment Calculus of right kidney N20.0 Act mireya Assessment Leukocytosis, unspecified type D72.829 Active Assessment Nonalcoholic fatty liver disease K76.0 Active Assessment Decreased GFR R94.4 Active Assessment Dehydration E86.0 Active Assessment Elevated alkaline phosphatase level R74.8 Active Assessment Allergic rhinitis, unspecified J30.9 Active seasonality, unspecified trigger Assessment Neuropathy G62.9 Active Problem Nonintractable headache, R51 Act mireya unspecified chronicity pattern, unspecified headache type Assessment Diverticulitis K57.92 Active Problem Prediabetes R73.03 Active Assessment 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 Problem Neuropathy G62.9 Active Problem Adult BMI 40.0-44.9 kg/sq m Z68.41 Active Problem Diverticulitis K57.92 Active Problem Nonalcoholic fatty liver disease K76.0 Active Problem Calculus of right kidney N20.0 Act mireya Assessment Prediabetes R73.03 Active Assessment Allergic to tetanus vaccine Z88.7 Active Problem Leukocytosis, unspecified type D72.829 Active Assessment Adult BMI 40.0-44.9 kg/sq m Z68.41 Active Problem Allergic rhinitis, unspecified J30.9 Active seasonality, unspecified trigger Problem Allergic to tetanus vaccine Z88.7 Active Problem Loss of balance R26.89 Active Problem 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 Assessment 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 Assessment HTN (hypertension), benign I10 A ctive Assessment Nonintractable headache, R51 Act mireya unspecified chronicity pattern, unspecified headache type Assessment Obstructive sleep apnea (adult) G47.33 Active (pediatric) Problem HTN (hypertension), benign I10 A ctive Problem Obstructive sleep apnea (adult) G47.33 Active (pediatric) Problem 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 Medications Medication Code Code Instructions Start End Status Dosage System Date Date Bystolic [facility] 26094013258 5 MG Orally Active 1 table t Once a day Candesartan [facility] 10263013594 32 MG Orally Active 1 t ablet Cilexetil Once a day Edarbyclor [facility] 64677777035 40-25 MG Orally Active 1 tablet Once a day NIFEdipine ER [facility] 31447200678 90 MG Orally Active 1 tablet Once a day on an empty stomach Nifedipine ER [facility] 65032559365 90 mg Oral Active not defined Spironolactone [facility] 59018101071 25 MG Orally Active 1 tablet Once a day with food Montelukast [facility] 24138775405 10 MG Orally Mar 16, Active 1 t ablet Sodium Once a day 2019 Lansoprazole [facility] 86577882134 30 MG Orally Active 1 capsule Once a day Tizanidine HCl [facility] 41453280729 4 MG Oral Active JC E 1 TABLET BY MOUTH EVERY 12 HOURS NEEDED Furosemide [facility] 54686620522 40 MG Orally Active 1 ta blet Once a day Results No Known Results Summary Purpose eClinicalWorks Submission
[2019-08-11] MEDS ORDERED: KETOROLAC 30 MG/ML INJ ONE (08:19)
[2019-08-11] MEDS ORDERED: dexAMETHasone 10 MG/ML VIAL ONE (08:19)
--- NOTE | 2019-08-11 08:54 | RAD REPORT ---
EXAM DESCRIPTION: CT - CTHCSPWOC - 08/11/2019 8:32 am CLINICAL HISTORY: Pain;Radiculopathy COMPARISON: No comparisons TECHNIQUE: Axial 5 mm thick images of the head were obtained. Axial 2 mm thick images of the cervic al spine were obtained with sagittal and coronal reconstruction images generated and reviewed. All CT scans are performed using dose optimization technique as appropriate and may include automated exposure control or mA/KV adjustment according to patient size. FINDINGS: No intracranial hemorrhage, mass, edema or acute intracranial finding. No suspicion for ac hannah infarction. Atrophy changes are mild. Ventricles are normal. Chronic ischemic changes evident in the cerebral white matter. Mastoid air cells and paranasal sinuses are clear. No globe or orbit abnor mality seen. Cervical body height and alignment are normal. No disk space narrowing. No fracture or acute bony abn ormality. Degenerative changes are present at the dens anterior arch C1 level. No encroachment into t he central canal identifiable. Patient has very large anterior endplate spurs and bridging ossificati on spanning C4-C7. No significant endplate spurring in the central canal. Uncovertebral joint hypertr ophy causes mild bony foraminal encroachment at C3-4 and to a lesser degree C4-5. Central canal detai l is inherently limited. No paraspinal mass or hematoma. IMPRESSION: Mild atrophy and mild chronic ischemic changes in the cerebral hemispheres. No acute int racranial finding. No acute cervical spine finding. The patient does have bony foraminal encroachment at C3-4 and C4-5.
[2019-08-11 08:56] LABS: Absolute Lymphocytes (CBC) 0.2 K/uL (0.7-4.9); Basophils % 0.1 % (0-1.3); Hematocrit 43.3 % (39.6-49.0); Lymphocytes % 2.6 % (15.3-44.8); MPV 9.5 fL (7.6-11.3)
[2019-08-11 08:57] LABS: Potassium 3.2 mmol/L (3.5-5.1)
--- NOTE | 2019-08-11 10:13 | ER ---
Nurse's Notes [facility] Name: Peter Adams Age: 64 yrs Sex: Male : 1955 Arrival Date: 08/11/2019 Time: 07:49 Bed 7 Private MD: Sandeep Madrid Diagnosis: Radiculopathy, cervical region;Tension-type headache Presentation: 08/10 08:01 Chief complaint: Patient states: Severe headache, neck pain that radiates to bilateral ph shoulders, down back and up to back of head, denies known injury, reports that he is currently seeing a neurologist for this issue but the past three days the pain has been worse and he feels unsteady, denies visual changes or N/V. Coronavirus screen: Patient denies a cough. Patient denies shortness of breath or difficulty breathing. Patient denies measured and/or subjective temperature greater than 100.4F prior to today's visit. Patient denies travel on a cruise ship or to a country the [facility] currently lists as an affected area. Patient denies contact with known and/or suspected case of COVID-19. Ebola Screen: No symptoms or risks identified at this time. Initial Sepsis Screen: Does the patient meet any 2 criteria? No. Patient's initial sepsis screen is negative. Does the patient have a suspected source of infection? No. Patient's initial sepsis screen is negative. Risk Assessment: Do you want to hurt yourself or someone else? Patient reports no desire to harm self or others. Onset of symptoms was August 11, 2019. 08:01 Method Of Arrival: Ambulatory 08:01 Acuity: TIAGO 3 ph Triage Assessment: 08:08 Headache History: The patient has had previous headaches and this one is similar to ph previous episodes, and this one is more severe than previous episodes. Historical: - Allergies: 08:05 Tetanus Vaccines \T\ Toxoid; ph 08:06 morphine (N/V); ph 08:29 GABAPENTIN; ph - PMHx: 08:05 Hypertension; ph - PSHx: 08:05 Tonsillectomy; Vasectomy; throat polyps; ph - Immunization history:: Adult Immunizations unknown. - Social history:: Smoking status: Patient denies any tobacco usage or history of. Screenin:04 Abuse screen: Denies threats or abuse. Denies injuries from another. Nutritional ph screening: No deficits noted. Tuberculosis screening: No symptoms or risk factors identified. Fall Risk None identified. Assessment: 08:06 Pain: Complains of pain in back of neck Pain radiates to bilateral shoulders, mid back ph and occipital area. Neuro: Level of Consciousness is awake, alert, obeys commands, Oriented to person, place, time, situation, Reports headache occipital area, Denies weakness blurred vision paresthesias numbness. Cardiovascular: Capillary refill < 3 seconds in bilateral fingers Patient's skin is warm and dry. Respiratory: Airway is patent Respiratory effort is even, unlabored, Respiratory pattern is regular, symmetrical. GI: No signs and/or symptoms were reported involving the gastrointestinal system. Derm: Skin is intact, is healthy with good turgor, Skin is pink, warm \T\ dry. Musculoskeletal: Circulation, motion, and sensation intact. Range of motion: intact in all extremities. 08:28 Reassessment: Pt taken to CT via stretcher. ph 09:43 Reassessment: Patient appears in no apparent distress at this time. Patient and/or ph family updated on plan of care and expected duration. Pain level reassessed. Patient is alert, oriented x 3, equal unlabored respirations, skin warm/dry/pink. Pt reports that pain has decreased after IV medications. Vital Signs: 08:01 BP 168 / 92; Pulse 65; Resp 18; Temp 97.7; Pulse Ox 98% on R/A; ph 08:44 BP 143 / 77; Pulse 57; Resp 18; Pulse Ox 97% on R/A; ph 09:44 BP 140 / 76; Pulse 56; Resp 18; Pulse Ox 97% on R/A; ph 11:00 BP 128 / 76; Pulse 64; Resp 18; Pulse Ox 98% on R/A; dm5 ED Course: 07:49 Patient arrived in ED. mr 07:49 Sandeep Madrid DO is Private Physician. mr 07:52 [facility] jr8 07:52 Georges Moon MD is Attending Physician. jr8 08:04 Triage completed. ph 08:04 Arm band placed on Patient placed in an exam room. ph 08:05 Patient has correct armband on for positive identification. Bed in low position. Call ph light in reach. Side rails up X 1. Pulse ox on. NIBP on. Door closed. Noise minimized. Warm blanket given. 08:11 Praveena Alicea, RN is Primary Nurse. ph 08:20 Initial lab(s) drawn, by me, sent to lab. Inserted saline lock: 22 gauge in right hand, ph using aseptic technique. Blood collected. 08:[address] via wheelchair. sv 08:33 CT Head C Spine In Process Unspecified. EDMS 10:57 Patient did not have IV access during this emergency room visit. intact, bleeding dm5 controlled, No redness/swelling at site. Pressure dressing applied. Administered Medications: 08:22 Drug: TORadol - Ketorolac 15 mg Route: IVP; Site: right hand; ph 08:44 Follow up: Response: No adverse reaction ph 08:23 Drug: Decadron - Dexamethasone 10 mg Route: IVP; Site: right hand; ph 08:44 Follow up: Response: No adverse reaction ph 08:42 Drug: Robaxin 1 grams Route: IVPB; Infused Over: 1 hrs; Site: right hand; ph 09:43 Follow up: Response: No adverse reaction; Pain is decreased; IV Status: Completed ph infusion 10:45 Drug: Potassium Chloride 40 mEq Route: PO; dm5 Outcome: 10:12 Discharge ordered by MD. pena 10:58 Discharged to home ambulatory. dm5 10:58 Condition: good 10:58 Discharge instructions given to patient, Discharge instructions given with [employer] assistance. Instructed on discharge instructions, follow up and referral plans. medication usage, Demonstrated understanding of instructions, follow-up care, medications, Prescriptions given X 3. 10:59 Patient left the ED. dm5 Signatures: Dispatcher [employer] EDUT mAalia Friend, RN RN [id number] Heaven Prajapati RN RN sv Rivera, Mary mr Roszak, Josh, PA PA jr8 Praveena Alicea, SANDRA RN ph
--- NOTE | 2019-08-11 10:13 | EDPHYS ---
Physician Documentation [facility] Name: Peter Adams Age: 64 yrs Sex: Male : 1955 Arrival Date: 08/11/2019 Time: 07:49 Bed 7 Private MD: [facility] ED Physician Georges Moon HPI: 08/10 08:37 This 64 yrs old Male presents to ER via Ambulatory with complaints of jr8 Headache, Neck Problem. 08:37 Onset: The symptoms/episode began/occurred at an unknown time. Associated signs and jr8 symptoms: Pertinent positives: dizziness. Severity of symptoms: At its worst the pain was moderate, in the emergency department the pain is unchanged. The patient has experienced similar episodes in the past, chronically. The patient has not recently seen a physician. Patient stated that he has been seeing a neurologist for some time for continued headaches, dizziness, and neck pain. Has had imaging in past but does not know what. Came to ED today for few days worsening of pain. Historical: - Allergies: 08:05 Tetanus Vaccines \T\ Toxoid; ph 08:06 morphine (N/V); ph 08:29 GABAPENTIN; ph - PMHx: 08:05 Hypertension; ph - PSHx: 08:05 Tonsillectomy; Vasectomy; throat polyps; ph - Immunization history:: Adult Immunizations unknown. - Social history:: Smoking status: Patient denies any tobacco usage or history of. ROS: 08:37 Eyes: Negative for injury, pain, redness, and discharge, ENT: Negative for injury, jr8 pain, and discharge, Cardiovascular: Negative for chest pain, palpitations, and edema, Respiratory: Negative for shortness of breath, cough, wheezing, and pleuritic chest pain, Abdomen/GI: Negative for abdominal pain, nausea, vomiting, diarrhea, and constipation, Back: Negative for injury and pain, MS/Extremity: Negative for injury and deformity, Skin: Negative for injury, rash, and discoloration. 08:37 Neck: Positive for pain with movement, pain at rest, stiffness, tenderness. 08:37 Neuro: Positive for dizziness, headache, Negative for altered mental status, numbness, seizure activity, speech changes, syncope, near syncope, tingling, tinnitus, tremor, visual changes, weakness. Exam: 08:37 Eyes: Pupils equal round and reactive to light, extra-ocular motions intact. Lids and jr8 lashes normal. Conjunctiva and sclera are non-icteric and not injected. Cornea within normal limits. Periorbital areas with no swelling, redness, or edema. ENT: Nares patent. No nasal discharge, no septal abnormalities noted. Tympanic membranes are normal and external auditory canals are clear. Oropharynx with no redness, swelling, or masses, exudates, or evidence of obstruction, uvula midline. Mucous membranes moist. Cardiovascular: Regular rate and rhythm with a normal S1 and S2. No gallops, murmurs, or rubs. Normal PMI, no JVD. No pulse deficits. Respiratory: Lungs have equal breath sounds bilaterally, clear to auscultation and percussion. No rales, rhonchi or wheezes noted. No increased work of breathing, no retractions or nasal flaring. Abdomen/GI: Soft, non-tender, with normal bowel sounds. No distension or tympany. No guarding or rebound. No evidence of tenderness throughout. Skin: Warm, dry with normal turgor. Normal color with no rashes, no lesions, and no evidence of cellulitis. MS/ Extremity: Pulses equal, no cyanosis. Neurovascular intact. Full, normal range of motion. 08:37 Neck: External neck: tenderness, that is moderate, of the occiput, left mid cervical area, right mid cervical area, left trapezius and right trapezius, C-spine: appears grossly normal, Thyroid: appears normal, Trachea: is midline with no obvious abnormalities, ROM/movement: pain, that is mild, with any movement, limited range of motion, is not appreciated, Meningeal signs: are not present, Kernig's sign is negative, Brudzinski's sign is negative, nuchal rigidity, is not appreciated, Lymph nodes: no appreciated lymphadenopathy. 08:37 Back: pain, that is moderate, of the left trapezius and right trapezius, ROM is normal, normal spinal alignment noted, CVA tenderness, is absent, vertebral tenderness, is not appreciated. Vital Signs: 08:01 BP 168 / 92; Pulse 65; Resp 18; Temp 97.7; Pulse Ox 98% on R/A; ph 08:44 BP 143 / 77; Pulse 57; Resp 18; Pulse Ox 97% on R/A; ph 09:44 BP 140 / 76; Pulse 56; Resp 18; Pulse Ox 97% on R/A; ph 11:00 BP 128 / 76; Pulse 64; Resp 18; Pulse Ox 98% on R/A; dm5 MDM: 07:52 Patient medically screened. 09:04 Data reviewed: vital signs, nurses notes, lab test result(s), radiologic studies, CT jr8 scan. Data interpreted: Pulse oximetry: on room air is 97 %. Interpretation: normal. Counseling: I had a detailed discussion with the patient and/or guardian regarding: the historical points, exam findings, and any diagnostic results supporting the discharge/admit diagnosis, lab results, radiology results, the need for outpatient follow up, a neurologist, to return to the emergency department if symptoms worsen or persist or if there are any questions or concerns that arise at home. ED course: Patient with mild improvement. Robaxin just started. Will check on patient again in about an hour . 10:11 ED course: Patient doing much better. Will d/c to f/u with neurology . 08/10 08:05 Order name: CBC with Diff; Complete Time: 09:07 08/10 08:05 Order name: Basic Metabolic Panel; Complete Time: 09:01 08/10 08:05 Order name: CT Head C Spine; Complete Time: 09:08/10 08:05 Order name: IV; Complete Time: 08:26 Administered Medications: 08:22 Drug: TORadol - Ketorolac 15 mg Route: IVP; Site: right hand; ph 08:44 Follow up: Response: No adverse reaction ph 08:23 Drug: Decadron - Dexamethasone 10 mg Route: IVP; Site: right hand; ph 08:44 Follow up: Response: No adverse reaction ph 08:42 Drug: Robaxin 1 grams Route: IVPB; Infused Over: 1 hrs; Site: right hand; ph 09:43 Follow up: Response: No adverse reaction; Pain is decreased; IV Status: Completed ph infusion 10:45 Drug: Potassium Chloride 40 mEq Route: PO; dm5 Disposition: 13:08 Co-signature as Attending Physician, Georges Moon MD I agree with the assessment and danielito plan of care. Disposition: 08/11/19 10:12 Discharged to Home. Impression: Radiculopathy, cervical region, Tension-type headache. - Condition is Stable. - Discharge Instructions: Cervical Radiculopathy, Neuropathic Pain. - Prescriptions for meloxicam 15 mg Oral tablet - take 1 tablet by ORAL route once daily As needed; 20 tablet. Robaxin 500 mg Oral Tablet - take 2 tablet by ORAL route every 6 hours As needed; 40 tablet. Medrol (Dennis) 4 mg Oral Tablets, Dose Pack - take 1 tablet by ORAL route as directed - follow package instructions; 1 packet. - Medication Reconciliation Form, Thank You Letter, Antibiotic Education, Prescription Opioid Use form. - Follow up: Private Physician; When: 5 - 6 days; Reason: Recheck today's complaints, Continuance of care, Re-evaluation by your physician. - Problem is new. - Symptoms have improved. Signatures: Dispatcher [employer] EDMS Amalia Friend, RN RN dm5 Georges Moon MD MD cha Roszak, Josh, PA PA jr8 Praveena Alicea RN RN ph Corrections: (The following items were deleted from the chart) 10:59 10:12 08/11/2019 10:12 Discharged to Home. Impression: Radiculopathy, cervical region; dm5 Tension-type headache. Condition is Stable. Forms are Medication Reconciliation Form, Thank You Letter, Antibiotic Education, Prescription Opioid Use. Follow up: Private Physician; When: 5 - 6 days; Reason: Recheck today's complaints, Continuance of care, Re-evaluation by your physician. Problem is new. Symptoms have improved. jr8
[2019-08-11] MEDS ORDERED: POTASSIUM CL SA 10 MEQ TAB PO ONE (10:43)
[2019-08-11 11:07] VITALS: TEMP 97.7
[2019-08-11 11:11] VITALS: BP 128/76; O2SAT 98
== END 2019-08-11 10:59 | disposition home or self-care (01) ==
LOC: ER 07:44
DX: M54.12 Radiculopathy, cervical region (principal); G44.209 Tension-type headache, unspecified, not intractable; Z88.7 Allergy status to serum and vaccine; Z88.6 Allergy status to analgesic agent
CPT/HCPCS: 96365; 85025; 80048; 36415; 70450; 72125; 96375; 99284; J1100; J2800

== ENCOUNTER 2019-09-13 10:25 | Emergency (ER) | payer OTHER ==
[2019-09-13] MEDS ORDERED: ACETAMINOPHEN 500 MG TAB ONE (11:45)
--- NOTE | 2019-09-13 12:21 | RAD REPORT ---
EXAM DESCRIPTION: Marin Single View09/13/2019 12:10 pm CLINICAL HISTORY: Cough COMPARISON: March 2019 FINDINGS: The lungs appear clear of acute infiltrate. The heart is normal size IMPRESSION: No acute abnormalities displayed
--- OUTSIDE RECORDS SUMMARY | 2019-09-13 12:34 | XMS REPORT | Clinical Summary ---
:1955 Author Organization [facility] Address [address] [place] [address] Care Team Providers Name Role Phone Jen [...] 11/04/2018 Orders Only General Internal Medicine after 09/12/2018 Social History Tobacco Use Types Packs/Day Years [...] BY Khris ROGERS RN ON 10/28/2018. CONFIRMATION #[id number]. 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 CONFIRMATION #[id number]. TISSUE EXAM AP Routine 11/06/2018 3:36 PM CDT Resu lts for this procedure are in the results sec tion. ECG 12-LEAD Routine 11/04/2018 11:54 AM CDT Procedure Note - Interface, External Ris In - 11/04/2018 5:07 PM CDT Ventricular Rate 55 BPM Atrial Rate 55 BPM P-R Interval 186 ms QRS Duration 88 ms Q-T Interval 442 ms QTC Calculation(Bazett) 422 ms P Monon 36 degrees R Monon 33 degrees T Monon 60 degrees Sinus bradycardia Otherwise normal ECG [...] i n the results section . after 09/12/2018 Results Tissue Exam (11/06/2018 3:36 PM CDT) Case Report Surgical Pathology Report Case: [id number] [facility] Authorizing Provider:Mitch Reeves MD Collected: 11/06/2018 1536 [facility] Ordering Location: [facility] PERIOPERATIVE Received:11/09/2018 0814 SERVICES Pathologist: Miriam Barajas MD Specimen:Lesion, rig ht vocal fold leion DIAGNOSIS RIGHT VOCAL CORD, LARYNGOSCOPIC EXCISION OF LESI ON: [facility] - VOCAL CORD POLYP [facility] - NEGATIVE FOR DYSPLASIA OR MALIGNANCY Signing Pathologist Direct Phone Line: CPT Code(s) 33596 [facility] ER CLINICAL HISTORY Benign neoplasm of larynx, [facility] 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 The specimen is submitted in toto in cassette A1. KM/ew MICROSCOPIC DESCRIPTION [facility] Specimen Tissue Performing Organization Address City/State/Zipcode Phone Number [facility] [address] [place] [address] CENTER ECG 12 lead (11/04/2018 11:54 AM CDT) Specimen Narrative Performed At Ventricular Rate 55 BPM GE MUSE Atrial Rate 55 BPM P-R Interval 186 ms QRS Duration 88 ms Q-T Interval 442 ms QTC Calculation(Bazett) 422 ms P Monon 36 degrees R Monon 33 degrees T Monon 60 degrees Sinus bradycardia Otherwise normal ECG No previous ECGs available Confirmed by Reggie JOHNSON MICHAEL ([id number]) on 11/05/2018 7:13:23 AM Procedure Note Interface, External Ris In - 11/05/2018 7:13 AM CDT Ventricular Rate 55 BPM Atrial Rate 55 BPM P-R Interval 186 ms QRS Duration 88 ms Q-T Interval 442 ms QTC Calculation(Bazett) 422 ms P Monon 36 degrees R Monon 33 degrees T Monon 60 degrees Sinus bradycardia Otherwise normal ECG No previous ECGs available Confirmed by Reggie JOHNSON MICHAEL ([id number]) on 11/05/2018 7:13:23 AM Performing Organization Address [facility] Phone Number MUSE BUN and Creatinine (11/04/2018 11:52 AM CDT) BUN 13 7 - 21 mg/dL [facility] Creatinine 0.95 0.57 - 1.25 mg/dL [facility] EGFR 81Comment: ESTIMATED GFR IS mL/min/1.73 sq m [facility] NOT ACCURATE CREATININE [facility] CLEARANCE IN PREDICTING GLOMERULAR FILTRATION RATE. ESTIMATED GFR IS NOT APPLICABLE FOR DIALYSIS PATIENTS. Specimen Blood Performing Organization Address [facility] Cent[facility] Phone Number [address] [address] CENTER Hemoglobin (11/04/2018 11:52 AM CDT) Hemoglobin 14.2 13.7 - 17.5 GM/DL [facility] Specimen Blood Performing Organization Address [facility]/Zipcode Phone Number [place] [phone] [place] [address] CENTER Electrolytes (11/04/2018 11:52 AM CDT) Sodium 140 136 - 145 meq/L [facility] Potassium 4.2 3.5 - 5.1 meq/L [facility] Chloride 106 98 - 107 meq/L [facility] CO2 29 22 - 29 meq/L [facility] Specimen Blood Performing Organization Address City/State/Zipcode Phone Number [facility] [address] [place] [address] CENTER after 09/12/2018 Insurance Payer Benefit Plan / Group Subscriber ID Type Phone A liza BATES xxxxxxxxxxx
--- OUTSIDE RECORDS SUMMARY | 2019-09-13 12:36 | XMS REPORT ---
[...] End Status Dosage System Date Date Montelukast [facility] 95684240522 10 MG Orally Rickey 14, Active 1 t ablet Sodium Once a day 2019 Bystolic [facility] 07206334312 5 MG Orally Active 1 table t Once a day Lansoprazole [facility] 97440440286 30 MG Orally Active 1 capsule Once a day Duloxetine HCl [facility] 36433658968 20 MG Orally Inactive 1 capsule Twice a day Candesartan [facility] 76622590564 32 MG Orally Active 1 t ablet Cilexetil Once a day Furosemide ND 37186225117 40 MG Orally Active 1 ta blet Once a day Spironolactone [facility] 70572610444 25 MG Orally Active 1 tablet Once a day with food Tizanidine HCl [facility] 93459711450 4 MG Oral Active JC E 1 TABLET BY MOUTH EVERY 12 HOURS NEEDED Results No Known Results Summary Purpose eClinicalWorks Submission
--- OUTSIDE RECORDS SUMMARY | 2019-09-13 12:36 | XMS REPORT | Continuity of Care Document ---
:1955 Author Organization [facility] t Address [address] [place] [address] Care Team Providers Name Role Phone Jen Chen Primary Care Physician Doctor Unassigned, Name Attending Clinician Unavailable JOE Attending Clinician Unavailable Joe MEJIA Attending Clinician Alejandra Alejandro MD Attending Clinician Adrien YO Attending Clinician Joe MEJIA Attending Clinician JOE Admitting Clinician Unavailable Payers Payer Name Policy Policy Number Effective Expiration Source Type Date Date AMBETTERAMBETTER xxxxxxxxxxx [facility] SUPERIORxxxxxxxxxxx [facility] Problems Condition Condition Condition Status Onset Resolution [...] Outpati devices devices ent Clinics Nonintract Nonintract Problem Active [facility] able able [facility] - headache, headache, Baldo selene unspecifie unspecifie l d d Outpati chronicity chronicity en t pattern, pattern, Clinic s unspecifie unspecifie d headache d headache type type HTN HTN Problem Active [facility] (hypertens (hypertens Bebe kes - ion), ion), Memoria benign benign l Outpati ent Clinics Prediabete Prediabete Problem Active [facility] s [facility] - Memoria l [...] Outpati ent Clinics Adult BMI Adult BMI Problem Active [facility] 40.0-44.9 40.0-44.9 Luke s - kg/sq [...] inics d trigger 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 l Outpati ent Clinics Loss of Loss of Problem Active [facility] balance balance [facility] Calculus Calculus Problem Active [facility] of right of right [facility] - kidney kidney [facility] l Outpati ent Clinics Leukocytos Leukocytos Problem Active [facility] is, is, [facility] - unspecifie unspecifie Me moria d type d type l Outpati ent Clinics 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 [facility] - liver liver [facility] disease disease l Outpati ent Clinics Allergies, Adverse Reactions, Alerts Allergy Allergy Status Severity Reaction(s) Onset Inactive Treating Comm ents Source Name Type Date Date Clinician Gabapent Propensi Active Hives [facility] in ty to 10-27 [facility] - adverse 00:00: Medical reaction 00 Center s Tetanus Propensi Active Hives [facility] Vaccines ty to 10-27 [facility] - And adverse 00:00: Medical Toxoid reaction 00 [facility] Tetanus DA Active [facility] Vaccines 05-29 [place] and 00:00: d Toxoid 00 [facility] gabapent DA Active [facility] in 05-29 [place] 00:00: d 00 [facility] Tetanus Adverse Active Info Not [facility] Reaction Available [facility] Gabapent Adverse Active Info Not [facility] t in Reaction Available [facility] Social History Social Habit Start Date Stop Date Quantity Comments Source History SDOH Alcohol [facility] - Std Drinks [facility] History SDOH Alcohol [facility] St kes - Binge [facility] Sex Assigned [facility] kes - [facility] History SDOH Alcohol 2018-11-04 2018-11-[address] [facility] - Frequency 00:00:00 00:00:00 [facility] Smoking Status Start Date Stop Date Source Never smoker [facility] Medications Ordered Filled Start Stop Current Ordering Indication Dosage Frequency Signature Comments Components Source Medication Medication Date Date Medication? Clinician (SIG) Name Name Montelukast Montelukast Yes Sandeep [address] [facility] Sodium Sodium 1-14 [place] [facility] - 00:00: Memoria [address] [facility] sucralfate Yes 1g Take [address] [address] (CARAFATE) 9-04 by mouth 2 [place] es - 1 gram 10:51: (two) Medical tablet 22 times Center daily before meals. spironolact Yes 25mg QD Take [address] one 9-04 by mouth [facility] - (ALDACTONE) 10:50: daily. Medi jef 25 MG 42 Center tablet ranitidine Yes 150mg Q.5D Take [address] (ZANTAC) 9-04 mg by [facility] - 150 MG 10:50: mouth 2 Medical tablet 42 (two) Center times daily. furosemide Yes 40mg QD Take [address] (LASIX) 40 9-04 by mouth [facility] - MG tablet 10:50: daily. Medica l 42 [place] candesartan Yes 32mg QD Take [address] (ATACAND) 9-04 by mouth [facility] - 32 MG 10:50: daily. Medical tablet 42 [place] candesartan 2019- No 1{tbl} QD Take [address] -hydrochlor 11-04 tablet by Bebe kes - othiazide 10:47: 00:00 mouth Medica l (ATACAND 33 :00 daily. [place] HCT) 16-12.5 mg per tablet Candesartan Candesartan Yes Sandeep [address] [address] Cilexetil Cilexetil [place] [facility] Lansoprazol Lansoprazol Yes Sandeep [address] e e [place] [facility] Bystolic Bystolic Yes Sandeep [address] [place] [facility] Furosemide Furosemide Yes Sandeep [address] [facility] [place] [facility] Spironolact Spironolact Yes Sandeep [address] one one [place] with food [facility] Tizanidine Tizanidine Yes Sandeep TAKE [address] [facility] [address] HCl HCl [place] TABLET BY [facility] - MOUTH Memoria EVERY 12 l HOURS Outpati NEEDED ent Clinics Edarbyclor Edarbyclor Yes Sandeep [address] [facility] [address] [place] [facility] NIFEdipine NIFEdipine Yes Sandeep [address] ER ER [place] on an [facility] - empty Memoria stomach l [facility] Nifedipine Nifedipine Yes Sandeep not [facility] ER ER [place] defined [facility] Immunizations Ordered Filled Immunization Date Status Comments [facility] e Immunization Name Name Afluria single dose Afluria single dose 2019-01-[address] [facility] [facility] - 00:00:00 [facility] Outpatient [facility] Vital Signs Vital Name Observation Time Observation Value Comments Source Systolic blood 2018-11-06 17:52:00 138 mm[Hg] [facility] pressure [facility] Diastolic blood 2018-11-06 17:52:00 71 mm[Hg] [facility] Heart rate 2018-11-06 17:52:00 81 /min [facility] Body temperature 2018-11-06 17:52:00 36.72 Queenie [facility] Respiratory rate 2018-11-06 17:52:00 17 /min [facility] Oxygen saturation in 2018-11-06 17:52:00 94 /min [facility] Arterial blood by Medical Ce nter Pulse oximetry Body height 2018-11-06 11:00:00 170.2 cm [facility] Body weight Measured 2018-11-06 11:00:00 118.3 kg [facility] BMI 2018-11-06 11:00:00 40.85 kg/m2 [facility] Procedures Procedure Date / Time Performing Clinician Source Performed LARYNGOSCOPY,EXCISION/ 2018-11-06 15:54:00 Mitch Diaz CH, I [facility] - RECONSTRUCTION W/ FLAP Medical C enter LARYNGOSCOPY,MICROSUSPENSI 2018-11-06 15:54:00 Migue Diaz [facility] - ON EXCISION TUMOR [facility] TISSUE EXAM 2018-11-06 15:36:00 Mitch Diaz [facility] ECG 12-LEAD 2018-11-04 11:54:41 Unknown, Hl7 Doctor [facility] BUN AND CREATININE W/RATIO 2018-11-04 11:52:00 Toby Bolden [facility] ELECTROLYTE PANEL 2018-11-04 11:52:00 Toby Bolden [facility] HEMOGLOBIN 2018-11-04 11:52:00 Toby Bolden [facility] Encounters Start End Encounter Admission Attending Care Care Encounter Source Date/Time Date/Time Type Type Clinicians Facility Department ID 2019-08-04 2019-08-04 [facility] [id number] [address] 09:30:00 09:30:00 [facility] 2019-07-06 2019-07-06 [facility] [id number] 09:00:00 09:00:00 [facility] 2019-06-07 2019-06-07 [facility] [id number] 09:35:00 09:35:00 t Dialog[employer] [facility] Medicine Outpati ent Clinics 2019-06-03 2019-06-03 [facility] [id number] 09:00:00 09:00:00 t Meijob s [employer] [facility] Medicine Outpati ent Clinics 2019-05-21 2019-05-21 [facility] [id number] 10:12:00 10:12:00 [place] [employer] [facility] Medicine Outpati ent Clinics 2019-05-14 2019-05-14 [facility] [id number] 16:37:00 16:37:00 t Dialogic [facility] Medicine Outpati ent Clinics 2019-05-13 2019-05-13 [facility] [id number] 10:30:00 10:30:00 t Dialogic [facility] Medicine Outpati ent Clinics 2019-04-22 2019-04-22 [facility] [id number] 16:41:00 16:41:00 t Dialogic [facility] Medicine Outpati ent Clinics 2019-04-19 2019-04-19 [facility] [id number] 08:30:00 08:30:00 t Dialogic [facility] Medicine Outpati ent Clinics 2019-04-14 2019-04-14 Orders Doctor ALLEN [id number] 00:00:00 00:00:00 Only Unassigned, BLACK [id number] Heimdal [facility] [id number] 2019-03-16 2019-03-16 [facility] [id number] 13:47:00 13:47:00 t Dialogic [facility] Medicine Outpati ent Clinics 2019-03-16 2019-03-16 [facility] [id number] 09:30:00 09:30:00 t Meijob s [employer] [facility] Medicine Outpati ent Clinics 2019-02-08 2019-02-08 [facility] [id number] 14:00:00 14:00:00 t [place] adjust s [employer] [facility] Outpati ent Clinics 2019-01-12 2019-01-12 [facility] [id number] 14:45:00 14:45:00 t [place] adjust s - [employer] [facility] Outpati ent Clinics 2018-12-10 2018-12-10 [facility] [id number] 14:30:00 14:30:00 t Dialogic [facility] Outpati ent Clinics 2018-10-14 2018-10-14 Office Adrien [facility] [id number] 08:46:19 09:29:51 Visit Bridgette AMBULATOR [id number] Y [id number] 2018-10-05 2018-10-05 Office Joe [facility] [id number] 10:33:46 12:48:03 Visit Julina AMBULATOR [id number] Y [id number] 2018-09-28 2018-09-28 [facility] [id number] 10:15:00 10:15:00 t Dialogic [facility] Outpati ent Clinics 2018-09-11 2018-09-11 [facility] [id number] 16:00:00 16:00:00 t Urgent Urgent Care L [facility] Outpati ent Clinics 2018-09-10 2018-09-10 [facility] [id number] 16:37:00 16:37:00 t Meijob s [employer] [facility] Outpati ent Clinics 2018-06-29 2018-06-29 [facility] [id number] 10:00:00 10:00:00 t Dialogic [facility] Medicine Outpati ent Clinics 2018-04-29 2018-04-29 [facility] [id number] 10:00:00 10:00:00 t Dialogic [facility] Medicine Outpati ent Clinics 2018-04-07 2018-04-07 [facility] [id number] 09:45:00 09:45:00 t Dialogic [facility] Medicine Outpati ent Clinics 2018-03-27 2018-03-27 [facility] [id number] [facility] 10:42:00 10:42:00 t Urgent Urgent Care [facility] Outpati ent Clinics 2018-03-27 2018-03-27 [facility] [id number] 09:30:00 09:30:00 t Urgent Ur[facility] Outpati ent Clinics 2018-03-25 2018-03-25 [facility] [id number] 09:45:00 09:45:00 t Dialogic [facility] Medicine Outpati ent Clinics 2017-10-08 2017-10-08 [facility] [id number] 13:00:00 13:00:00 t Dialogic [facility] Medicine Outpati ent Clinics 2017-09-23 2017-09-23 [facility] [id number] 10:00:00 10:00:00 t Dialogic [facility] Medicine Outpati ent Clinics 2017-06-09 2017-06-09 [facility] [id number] 09:30:00 09:30:00 t [employer]ic [facility] Medicine Outpati ent Clinics Results Test Description Test Time Test Comments Results Result Comments Source Tissue Exam 2018-11-10 15:15:00 Test Item Value Reference Range Interpretation Comme nts Case Report (test code = 104) Surgical Pathology Report Case: [id number] Authorizing Provider: Mitch Diaz MD Collected: 11/06/2018 1536 Ordering Location: [facility] Received: 11/09/2018 0814 SERVICES Pathologist: Miriam Barajas MD Specimen: Lesion, right vocal fold leion DIAGNOSIS (test code = 3220) d4sdaFMmPIZff6zhLMRwtWRiZwMjEfSuSfSuMp pc hFRkYQlwcuVsBZaqr7PuK8IqAcGdSZdetfXwUOOa LjquocmnQSFmUMS0xtQvCAYhTCvoNMRiRJjyXc7c sMAmrUlrKjFxBGVai1wiozSFlwvkeRc7nYllM16g o4W5SqsoN8twRLGvLXSlE6ApDL1dRGZxFgh7ACL5 XIJ8LOTmGMTtB4AzMI1rJLGpsJAnRFj1f8jlnSuy QFHdDUO4i4kxSDtcdaFkMQ1ybo0zjNo5a4vatwVt LBArWNItcFWNTWFqU8RqaXvjDu5tiDj5lYzlDmnq KKZ8Anu8AS0qxw06zia0nTtmTVAcmkyvOwS1DJih KCGnkwfyMEn6RYqaLFRjlDhwZGxzQPYbyxpoVLeg OLLsqVqcXRwuVNLqJuneMNyeYWAhGBA8OMbox935 QIE8VIspg8ltn1aklJVbAqv9MLAgDiWgOotxQCyt s5Mqn0hvWAPker1sIQU5mNHtqLdvv3F9rQRuHWMa mARqtgEiUUZpGaO5SKnxPD9szi27MWQtJEX8kd9g sPAfbJjrqpXfdZOoPBufP0BiFOQrr819KADbE8Cb WOHoc0C4nqBpHyDtHPFxlJF7abC1NTUiASy3uKRk xpN7xwHifYZhO4vwmN00EwGijUKkT1FclP11DrLz bASwH6KiqV48PdUqfDDoP1AtcE97SuQwbKXrGAEc mDWtQs9ocPGrjQXyx7EwfQXwOUeaS84jo618MCNq kxOlI1hfuXMkxhwvmAIoqsmmFNoffuA3SSIxKYJb YWluXGYwXGZzMjBcbGFuZzEwMzNcaGljaFxmMFxk DpKhDVGyKUksA6ntVmExWeSsHUUVMOaHOHMAO3GN FWPHK6WPGGHARSWWUuwWZ7MTGBoXZZRPZ4kAZV5L JV4KDGpMD5mPYibnbASaLERkANUST4KBXBDMKyMi OE7GTRAodXRsVBLdUH8TH1DVRMSAUHFTAzYVPVER XTLOUOPaP3NlYUGOCVoOFY7XAGfeAMQ2h8ojiDOe XHNzdGUxODAwMFxhbnNpXGRlZmxhbmcxMDMzXGZ0 uzJhAVIoGEiaSCSpJBnwUd6vgDBzqNtlIuMeWSSz p9yjzuMTdafkyZe8s2bsYBIiKoR3tOEtSLwmG2gw zrNyrMSmFUJxUYn0uO32MMZinL4xsNRrXAxzytDr YpC1EQjxHRCmYuM1BRTgbGRtLRYtQ5fgHRXgCSls IIGfMTekeANtTTK7hUrjg1Q7qYEmzWXsiImpVeBw YnPiZkMIy1GpTPi4vAwyT0RjXJZyKqE0oJLqCTGk JRgoILBmCJWewbU0fX63VIkmnmA7hDHac1Lfw47n x198qO9jbAXmMVO7JZNzSUUpcDPnCWEgZXH2NVYr gNOxD1isHYPyFG0oozbhLTjkGXumSKRmkTK0ZJNi hSWqY8KbNNJrVQmpCLLwtxh1TmJsMs4dcNEflFqx EMpor8lvh9epbGEoBfd7IRXzAfSmAciyASezf6Fd a3jmBVIgfe4nZUP2yOGyaOzqn3X1dXXfRNWthCQm NLHgBY1tjZKkJFJjhM3nzldpLFJbVaGvhqfxKBLb tZvqndMzDr5bmTpxIQR3JZfxR8waiP8nAxM7TUnm V3cttD8yNFu4AMzqFOQujCL9rzR8NGKeuKJlI4Sk hE2oBNTlRH3pjfw4r5llQWY7CXdlCYQtXnJ5tnR0 SBYgdRJrCCBhcAyxMGldm142SZY9YoJpFFGhk3Hx N7HnkCfbQ95qyOvqW15hPOOpcEcttL3ypFhbdK7d PwSeWgJqSJvtxGxoWC4pJJPvM8btkAVcLFHiWKXb D2oeDjCjlY9yrKnnHBqyhtOcHVZpXcy6ZIYksPWd AAEgOsq8HNDzEUDqX17vkbmuPFC5eZ5ik6yal0Ff WLytLAC0UTAli83pHEmsmzS7RIkgLo4aBhUwUSL2 KAqyUQM1xF== CPT Code(s) (test code = 3357) c3qffFGrLEChdVXoLtUxCELsPUYze6kjKTRa bGFu BkPpMgHdFtOeJegpdEOjWFOyBqOww9kdt975iMAy q4ssAADvAkE9uESeAINwwPErH901x6tyz6newyXt wCP4MDFtXXN3OSwyfrFrvfJ5WHltcYNaKeO1PXaz wzWcBDlmosYhexTnXnf2IOFdY176GYG7lGnpm3nu IDT2WMJkEXWaMuMdHx1zrEWuB604VBDbJQCKCSZw qOe5NAInowBignHbeSTFv406I174c0fnJVJhscOf vLbInjvos7viL813MNDxsZXbntNmMqLhQLCtuPFo eLK1WZJbOU8bseqaOuJiNA3frfqyZmJxEA8mxdl8 QiSpVQ9srhbwZxXtZZvdJSRezdrrTFFdh3Lnvnfy TV6iN0Evx8Z7qX1wrPGvUFMdpJJsCaFkKMWcyf6v wGJuQThkn5XyFRG8iaG0uNNbwQQlZDAjKA64Fbqs h4XeLleiTFS4JVYndgGqp4Uiq4jfIkInklXrJ3gu E9SnKIZoLYUhGOWoEuLrtkVbt6Qea7PtsOWvmPy8 h8koMURiQNOsoIicm6emMYZ8VIKnX7M1aZYum8rr AEzuQUHrkSJ0kukjHUdvERAzkeV0kgywTUztEZQv pOA4nwejFZhsOINfAnB1pxvnBZwyBLPcWCL6VNch w007GWD9ASstToniUOhiPYWpcgRfjvFuwYpgDPQj TRZiYInmEGNhVLyxPRRgDDWoKpMknKzudZjyoK8j BtXwDsTpUThpMP7rHCAfO8wxyJUhCXKnLMTkZ9nk MsGoyL5epZymHEdefyYqISj1FeI8SVFcxp7= CLINICAL HISTORY (test code = 3356) w5rkpBDrNKLctGZqWgPyHLBnRFSvg6w cZGVmbGFu PcVaFpYwYnZaOuofqWNkWOCsPiOpk1nzv923cINw w3sdJGTgHiX5iCIcFCBjtYXeZ939y4sln4qxxjRa sXH3TYRvSLU9OOxyhdMdgiU1XGofoMMaJdK6RCnj ctIhTArmssDhzlOyZkz1TMYbW795KFV6vCoci6pc ZFL2GJXrHDArUbUsJd0omAZkO726BPRkQPAUADVi xUv9FBDhsjSvzbTecLKGh883O576j4ucLHTkimFq iOtRcbpao6yqB691LHFozXRqnzPlQeQaQBDkfTVo nMS4DDIwGQ7psdkrTlZdSQ2gewgqEsJpRP5xhhp4 BkIaWP0erakdRgJuPChiQDZllxveIZCgw2Gwxjnw RR8yU2Gjq2E8pG6gfUPjHLKunECbNcFcKNZwhl4l cFGaAQjhu7TyMTJ9otN4zFGttVTzLQXdLO00Hlhe u7DiKxtgSGN9RISmbpVdp9Cql7wkBdYrxuNuD4wz D1KtDWBnPXCtARMhIoQlumSjk6Vbt4MfdRJitGu3 e4wgXHVdXEAfeZqfz5isWHH1YCPrB4E5mXRss4ki TRywTPSsiWD6uwumEAzwDXHvqgP9qiqcMQvvXAId kEW2zrajVTqbXFAtIbZ4dgwqFOffVLVlCOQ1CAzu i202DLQ2CIvtAqaiGEayVMNvslKvivRbnPxjICMb PXLxKLcjQGZjALamKCKpIHFfGxJbkHgzhXbmwB3w LyCzYsXxVIqnBP2kHOFuF3nnoHMzFSYkJPQjO6zf QkEayN0riNnxSArrmjNvEJGtnnamtdMwQI1xeASy xNXqDwLcDEE0nkgzXT8az2LjIKKpNJ2wRVFeV8Km fTKwmfFhFFambakhggBhLyBsPDZimURooL5xcEDt cmdhblxwYXJ9 SPECIMEN SOURCE (test code = 3377) g7shkGCkESYeiWToEjGnQFFzNOHpv2mu ZGVmbGFu VuUjZiDvZgPxDlqwpCMjNJTvTqUsa6jpq648dFUy m4urNBZeWqZ1xAQaGLWlyQXoZ790l2pqw5kartIy tHX8UBNlSQO9UPmoymKbfaL2AOtqlWOjRmN6KIqo oxMvFLxfxgFsvjJiSaz9VVCtN736YSC1mKbjn8zm ISY5UFBzUBXgMvHbJx9otISrU486FNPoZVRHCMJp qUt4DOMlqtMiqvWsmZZLi552W022s8xkLXWyafBr aLlPlinvh1whV927YQEfdSMjciPmWsKqJFNtpRLo uJS3DSIwSJ2qaqdyBwQbFO4pijqgDqXwVS1ndxj2 UoUmGY0vwuvlIuPtFFurXMMoewzrYVCst4Cecaqx CZ3xK7Hir1I4qV7dbRKwMOSldQMiTcHgRFRrct3j sFPeZMbkl4XsHDC9uhF1qFUxkHGsECHeXC46Lklp p1FcEpcgDMP5DXSltrRuu9Fam1gePnXfrrNtC6fz M4ElQECuYASiARUrFfHnmnBpa3Rum8PtcJOnjQg9 d4pwMTChGTGtvYgun6lmKFJ6BYZyK2Z1pCKqu2vl OBuzOBKtxBM0lkehGMzoGTWwmtM1drneVJghISYo dWW1wpvgIUoqJRArSbH9olnhSAseTMAnQTO8KTzc l934GAQ2PAcyMnjwLPteKDLeymGsdcNcbXaxJXGx NKGbKHchRPZgXPwsISCxNTHzRxDdySlvnFlbaM7c EoJvQsQrUZgeJL9nIEEgO3nmzKKrSTPzNBMcF9eq LaKoyJ5seTskYGuxxyOoLAjvy1zzwnP0xYTepTTm jcrxnPMmws3yVSbsWh2oEJMwRRZza34lEEBvcd3= GROSS DESCRIPTION (test code = 3366) l9hszTCuHDNocVQlUgQvUQEeQHDay5 lcZGVmbGFu [file] WVjBW4A2ARkkYXL7 MICROSCOPIC DESCRIPTION (test code = w6leoBLgVXHlsZXoYiIgPAMmPXIwu8 [place] [address]) QrRmEtZwRiXiPhloxPAhWZGsUrYnf9afk446yMWo u3xpLLBnKiN2bFCcJYYedEAbP558b6lji8kwbjHx rIE5GSVaMJS1KRjbptMpucJ6CRojzIQbIxQ6EBbk keXuLJjzdgDoouIjFwq8JQGdB146AUK4lZqvh6fc LXU9XWSgFAOnRzOkPb8dpSBuE358ISFtQJXYXXAy eAj6ZAYlteArsrBcbQGVd903K886n1shZACyhmNv eIyTtjfyx1mnM374XTChyXKeprOoYvBkQNHdoHSg qVR8XKJfNE9mhicaEcBqXO7vcccvCmMqRW7upgl4 ZdAaEH5akgbhEgByMNpoAHNqiutzIVPcg9Crtquq MH7lC7Wfw0Q6nG1gaTJnIWQtgXFkFpEeMIRdsj9y qCAbTYlgu9BlQMJ9ynM0qWUnnTRfKPQxQQ50Zzsk c0BjJfwpXDC8SXPvsfBvo1Kgh0cdZoYfjlNaF9ek X0IbVZEbGJPlQVDfWxJvzrPls1Ggw2AefYSlgVf3 t1uuLLSiNSVuyMvio9atMEI9XQYpE8T4oYNvi1la WFsuKEHtbBE0ugxbAYjpTALbswE6hwwrDMdvROAd xNL6qonbKLvxBXAxKlH7wexdHUpoFYKjHNL1SOmt n573AUZ0URveGgrtHXnvKTRuydCbaxXrmRlaDFTo CZOeDRoxEJRbQTngEFRrDTCzIjBeuNnvfOuxfH2f AvXcWiDiEJeqUU2kCYGnK4tioJFlTDMtUYExM7op IaQaqI1awQrkIPilpyMzKXJWAgUPVh9ZIPrhFZK0 [id number]:15:00Surgical Pathology Report Case: [id number] Authorizing Provider: Mitch Diaz MD Collected: 11/06/2018 1536 Ordering Location: [facility] Received: 11/09/2018 0814 SERVICES Pathologist: Miriam Barajas MD Specimen: Lesion, right vocal fold leion RIGHT VOCAL CORD, LARYNGOSCOPIC EXCISION OF LESION: - VOCAL CORD POLYP - NEGATIVE FOR DYSPLASIA OR MALIGNANCY Signing Pathologist Direct Phone Line: [phone] signed by Miriam Barajas MD on11/10/2018 at 3:15 [id number] neoplasm of larynx, neoplasm of uncertain behavior of respiratory organLesion tissue right vocal fold lesion Received in formalin labeled with the patient's name, accession number and "lesion right vocal fold lesion" is a 0.2 cm in greatest dimension, velazquez-white to red-brown tissue. The specimen is submitted in toto in cassette A1. KM/ew PERFORMEDECG 12 [id number] 07:13:28Interface, External Ris In - 11/05/2018 7:13 AM CDTVentricular Rate 55 BPMAtrial Rate 55 BPMP-R Interval 186 msQRS Duration 88 msQ-T Interval 442 msQTC Calculation(Bazett) 422 msP [place] 36 degreesR [place] 33 degreesT [place] 60 degreesSinus bradycardiaOtherwise normal ECGNo previous ECGs availableConfirmedby Reggie JOHNSON, REGINA ([id number]) on 11/05/2018 7:13:23 [facility] 13:45[facility]00 Test Item Value Reference Range Interpretation Comments Sodium (test code = 2951-2) 140 meq/L 136-145 Potassium (test code = 2823-3) 4.2 meq/L 3.5-5.1 Chloride (test code = 2075-0) 106 meq/L 98-107 CO2 (test code = 2028-9) 29 meq/L 22-29 Lab Interpretation (test code = Normal 14575-8) [facility] [id number] 13:45:00 Test Item Value Reference Range Interpretation Comments BUN (test code = 13 mg/dL 7-21 3094-0) Creatinine (test code 0.95 mg/dL 0.57-1.25 = 2160-0) EGFR (test code = 81 mL/min/1.73 [place] [address]-0) ACCURATE CREATININE ADAM HARVEY IN PREDICTING GLOMERULAR FILT RATION RATE. ESTIMATED GFR IS NOT APPLICAB LE FOR DIALYSIS PATIEN TS. [facility]2019-[facility] 13:45:00 Test Item Value Reference Range Interpretation Comments SODIUM (BEAKER) (test code = 381) 140 meq/L 136-145 POTASSIUM (BEAKER) (test code = 4.2 meq/L 3.5-5.1 379) CHLORIDE (BEAKER) (test code = 382) 106 meq/L 98-107 CO2 (BEAKER) (test code = 355) 29 meq/L 22-29 BUN AND [id number] 13:45:00 Test Item Value Reference Range Interpretation Comments BLOOD UREA NITROGEN 13 mg/dL 7-21 (BEAKER) (test code = 354) CREATININE (BEAKER) 0.95 mg/dL 0.57-1.25 (test code = 358) EGFR (BEAKER) (test 81 mL/min/1.73 ESTIMA ALAINA GFR IS code = 1092) sq m NOT ACCURATE CREATININE CLEARANCE IN PREDICTING GLOMERULAR FILTRATION RATE . ESTIMATED GFR I S NOT APPLICABLE FOR DIALYSIS PATIEN TS. [id number] 13:28:00 Test Item Value Reference Range Interpretation Comments Hemoglobin (test code = 786-4) 14.2 13.7- 17.5 GM/DL Lab Interpretation (test code = Normal 21329-8) [facility] 13:28:00 Test Item Value Reference Range Interpretation Comments HEMOGLOBIN (BEAKER) (test code = 14.2 GM/DL 13.7-17.5 410) [id number] 15:12:00 RUN DATE: 06/04/18 [facility] - LAB *LIVE* PAGE 1 RUN TIME: 1512 Specimen Inquiry RUN USER: INTERFACE PATIENT: JOHNY MORSE LOC: MARYAM U #: [id number] AGE/SX: 62/M ROOM: RE06/02/18REG DR: Delroy Petersen MD : 59 BED: DIS: STATUS: [facility] TLOC: SPEC #: [id number] RECD: 06/03/18 STATUS: NICKY REQ #: [id number] MAYKEL: 06/02/[address] [facility] [address]: Delroy Petersen MD ENTERED: 06/03/18 SP TYPE: SURG OTHR DR: Jordin Madrid MD ORDERED: AB/PAS AUGUSTO/2, SURG PATH LVL 4/, PATH STAIN GROU COPIES TO: Jordin Madrid MD [address] [place] [address]. [address] [place] [address] Delroy Petersen MD [address] [place], [place] [address] HISTOLOGY: TISSUE ID BLK PCS JUNE LEV [...] ABDOMINAL PAIN -R10.9 CPT CODES CPT CODE(S): 78654C3 , 81453 , 60025T2 , , , , FINAL DIAGNOSIS A. Stomach, body and antrum, biopsy: MILD CHRONIC GASTRITIS NEGATIVE FOR INTESTINAL METAPLASIA, DYSPLASIA, OR MALIGNANCY NEGATIVE FOR HELICOBACTER PYLORI ORGANISMS??? CONTINUED ON NEXT PAGE RUN DATE: 06/04/18 [facility] - LAB *LIVE* PAGE 2 RUN TIME: 1512 Specimen Inquiry RUN USER: INTERFACE S PEC #: [id number] PATIENT: MINIJOHNY #[id number] (Continued) FINAL DIAGNOSIS (Continued) B. Esophagus, distal, [...] all as B. ba/nr Grossing performed at [facility] Pathology, [address] [place] [address], [address], [place] [address]. Systems Planner: Kevin Lloyd M.D. MICROSCOPIC DESCRIPTION A. Gastric [...] metaplasia (goblet cells). Signed SIGNATURE ON FILE RachelRasheed cooperrg Michelle 06/04/18 1512 END OF REPORT
--- OUTSIDE RECORDS SUMMARY | 2019-09-13 12:36 | XMS REPORT ---
:1955 Author Organization eClinicalWorks Care Team Providers Name Role Phone MadridSandeep Provider Role Unavailable Allergies No Known Allergies Problems Problem Type Condition Code Onset Dates Condition Statu s Problem Neuropathy G62.9 Active Problem Adult BMI 40.0-44.9 kg/sq m Z68.41 Active Problem Diverticulitis K57.92 Active Problem Nonalcoholic fatty liver disease K76.0 Active Problem Calculus of right kidney N20.0 Act mireya Problem Leukocytosis, unspecified type D72.829 Active Problem Allergic rhinitis, unspecified J30.9 Active seasonality, unspecified trigger Problem Allergic to tetanus vaccine Z88.7 Active Problem Loss of balance R26.89 Active Problem 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
--- OUTSIDE RECORDS SUMMARY | 2019-09-13 12:36 | XMS REPORT ---
[...] End Status Dosage System Date Date Bystolic [facility] 39816037329 5 MG Orally Active 1 table t Once a day Candesartan [facility] 46629224721 32 MG Orally Active 1 t ablet Cilexetil Once a day Edarbyclor [facility] 69407030536 40-25 MG Orally Active 1 tablet Once a day NIFEdipine ER [facility] 87958108149 90 MG Orally Active 1 tablet Once a day on an empty stomach Nifedipine ER [facility] 08578091787 90 mg Oral Active not defined Spironolactone [facility] 36086829103 25 MG Orally Active 1 tablet Once a day with food Montelukast [facility] 26176231028 10 MG Orally Mar 16, Active 1 t ablet Sodium Once a day 2019 Lansoprazole [facility] 10511188952 30 MG Orally Active 1 capsule Once a day Tizanidine HCl [facility] 59450385985 4 MG Oral Active JC E 1 TABLET BY MOUTH EVERY 12 HOURS NEEDED Furosemide [facility] 95570870899 40 MG Orally Active 1 ta blet Once a day Results No Known Results Summary Purpose eClinicalWorks Submission
--- NOTE | 2019-09-13 12:57 | EDPHYS ---
Physician Documentation [facility] Name: Peter Adams Age: 64 yrs Sex: Male : 1955 Arrival Date: 09/13/2019 Time: 10:30 Bed 13 Private MD: [facility] ED Physician Georges Moon HPI: 09/12 11:12 This 64 yrs old Male presents to ER via Ambulatory with complaints of danielito Congestion, Body aches. 11:12 The patient has shortness of breath at rest. Onset: The symptoms/episode began/occurred danielito 2 day(s) ago. Duration: The symptoms are continuous, and are unchanged since they started, and are steadily getting worse. The patient's shortness of breath has no apparent modifying factors, is aggravated by nothing, is alleviated by nothing. The patient or guardian reports cough, described as mild, difficulty breathing, flu symptoms, arthralgias, low-grade fever, myalgias, no appetite. Modifying factors: The symptoms are alleviated by nothing. the symptoms are aggravated by nothing. Associated signs and symptoms: The patient has no apparent associated signs or symptoms. Severity of symptoms: At their worst the symptoms were mild in the emergency department the symptoms are unchanged. The patient reports fever, that was measured at 102 degrees Fahrenheit. Historical: - Allergies: 10:47 GABAPENTIN; ss 10:47 morphine (N/V); ss 10:47 Tetanus Vaccines \T\ Toxoid; ss - PMHx: 10:47 Hypertension; ss - PSHx: 10:47 Tonsillectomy; throat polyps; Vasectomy; ss - Immunization history:: Adult Immunizations up to date. - Social history:: Smoking status: Patient denies any tobacco usage or history of. - Family history:: not pertinent. ROS: 11:12 Eyes: Negative for injury, pain, redness, and discharge, Neck: Negative for injury, danielito pain, and swelling, Cardiovascular: Negative for chest pain, palpitations, and edema, Abdomen/GI: Negative for abdominal pain, nausea, vomiting, diarrhea, and constipation, Back: Negative for injury and pain, : Negative for injury, bleeding, discharge, and swelling, MS/Extremity: Negative for injury and deformity, Skin: Negative for injury, rash, and discoloration, Neuro: Negative for headache, weakness, numbness, tingling, and seizure, Psych: Negative for depression, anxiety, suicide ideation, homicidal ideation, and hallucinations, Allergy/Immunology: Negative for hives, rash, and allergies, Endocrine: Negative for neck swelling, polydipsia, polyuria, polyphagia, and marked weight changes, Hematologic/Lymphatic: Negative for swollen nodes, abnormal bleeding, and unusual bruising. 11:12 Constitutional: Positive for body aches, chills, fatigue, fever, malaise. 11:12 ENT: Positive for rhinorrhea, sinus congestion. 11:12 Respiratory: Positive for cough, with no reported sputum. Exam: 11:12 Head/Face: Normocephalic, atraumatic. Eyes: Pupils equal round and reactive to light, danielito extra-ocular motions intact. Lids and lashes normal. Conjunctiva and sclera are non-icteric and not injected. Cornea within normal limits. Periorbital areas with no swelling, redness, or edema. ENT: Nares patent. No nasal discharge, no septal abnormalities noted. Tympanic membranes are normal and external auditory canals are clear. Oropharynx with no redness, swelling, or masses, exudates, or evidence of obstruction, uvula midline. Mucous membranes moist. Neck: Trachea midline, no thyromegaly or masses palpated, and no cervical lymphadenopathy. Supple, full range of motion without nuchal rigidity, or vertebral point tenderness. No Meningismus. Chest/axilla: Normal chest wall appearance and motion. Nontender with no deformity. No lesions are appreciated. Cardiovascular: Regular rate and rhythm with a normal S1 and S2. No gallops, murmurs, or rubs. Normal PMI, no JVD. No pulse deficits. Respiratory: Lungs have equal breath sounds bilaterally, clear to auscultation and percussion. No rales, rhonchi or wheezes noted. No increased work of breathing, no retractions or nasal flaring. Abdomen/GI: Soft, non-tender, with normal bowel sounds. No distension or tympany. No guarding or rebound. No evidence of tenderness throughout. Back: No spinal tenderness. No costovertebral tenderness. Full range of motion. Skin: Warm, dry with normal turgor. Normal color with no rashes, no lesions, and no evidence of cellulitis. MS/ Extremity: Pulses equal, no cyanosis. Neurovascular intact. Full, normal range of motion. Neuro: Awake and alert, GCS 15, oriented to person, place, time, and situation. Cranial nerves II-XII grossly intact. Motor strength 5/5 in all extremities. Sensory grossly intact. Cerebellar exam normal. Normal gait. Psych: Awake, alert, with orientation to person, place and time. Behavior, mood, and affect are within normal limits. 11:12 Constitutional: The patient appears febrile. 11:12 Neck: ROM/movement: is normal, no acute changes, Meningeal signs: are not present, Kernig's sign is negative, Brudzinski's sign is negative. 11:12 Respiratory: Exam negative for Respirations: normal, Breath sounds: are clear throughout, no acute changes. Vital Signs: 10:45 BP 126 / 85; Pulse 80; Resp 16; Temp 100.6(TE); Pulse Ox 96% on R/A; Weight 115.67 kg; ss Height 5 ft. 7 in. (170.18 cm); Pain 7/10; 13:00 BP 128 / 69; Pulse 68; Resp 16 S; Temp 99.0(O); Pulse Ox 96% on R/A; aa5 10:45 Body Mass Index 39.94 (115.67 kg, 170.18 cm) ss MDM: 10:50 Patient medically screened. danielito 11:15 Differential diagnosis: bronchitis, flu, URI, viral Infection, bacterial infection, danielito URI, bronchitis, pneumonia. Antibiotic administration: The patient is discharged and will get outpatient antibiotics, Zithromax. The patient's Wells Deep Vein Thrombosis Score was calculated as follows: Total Score: 0-2 Pts- Low Risk. The patient's pulmonary embolism risk score was calculated as follows: Total Score: 0-2 points. This patient was found to be at low risk for a pulmonary embolism by using the Well's assessment criteria. Immunization status: Influenza vaccine: Data reviewed: vital signs, nurses notes, lab test result(s), Flu: radiologic studies, plain films. 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 Test interpretation: by ED physician or midlevel provider: plain radiologic studies. Counseling: I had a detailed discussion with the patient and/or guardian regarding: the historical points, exam findings, and any diagnostic results supporting the discharge/admit diagnosis, lab results, radiology results, the need for outpatient follow up. 09/12 11:03 Order name: Influenza Screen (a \T\ B) [facility] 09/12 11:03 Order name: COVID-19 [facility] 09/12 11:03 Order name: Chest Single View XRAY [facility] 09/12 11:03 Order name: PO challenge; Complete Time: 11:44 [facility] Administered Medications: 11:35 Drug: Tylenol 1000 mg Route: PO; aa5 13:45 Follow up: Response: No adverse reaction aa5 13:15 Drug: Decadron 6 mg Route: IM; Site: right deltoid; aa5 13:45 Follow up: Response: No adverse reaction aa5 13:15 Drug: Zithromax 500 mg Route: PO; aa5 13:45 Follow up: Response: No adverse reaction aa5 Disposition: 09/13/19 12:56 Discharged to Home. Impression: Fever, unspecified, Acute upper respiratory infection, unspecified. - Condition is Stable. - Discharge Instructions: Fever, Adult, Upper Respiratory Infection, Adult, Cool Mist Vaporizer, Upper Respiratory Infection, Adult, Dvmn-br-Eisr, Cough, Adult. - Prescriptions for dexamethasone 2 mg Oral tablet - take 1 tablet by ORAL route 3 times per day; 12 tablet. Albuterol Sulfate 90 mcg/actuation - inhale 1-2 puff by INHALATION route every 4-6 hours; 1 Inhaler. Zithromax 500 mg Oral Tablet - take 1 tablet by ORAL route once daily for 4 days; 4 tablet. - Medication Reconciliation Form, Thank You Letter, Antibiotic Education, Prescription Opioid Use form. - Follow up: Sandeep aMdrid, DO; When: 2 - 3 days; Reason: Recheck today's complaints, Continuance of care, Re-evaluation by your physician. - Problem is new. - Symptoms have improved. Signatures: Dispatcher [employer] Georges Cummings MD MD cha Calderon, Audri, RN RN [email or web address] Eli Graves RN RN ss Martinez, Maria 5 Corrections: (The following items were deleted from the chart) 14:29 12:56 09/13/2019 12:56 Discharged to Home. Impression: Fever, unspecified; Acute upper mh5 respiratory infection, unspecified. Condition is Stable. Forms are Medication Reconciliation Form, Thank You Letter, Antibiotic Education, Prescription Opioid Use. Follow up: Sandeep Madrid; When: 2 - 3 days; Reason: Recheck today's complaints, Continuance of care, Re-evaluation by your physician. Problem is new. Symptoms have improved. danielito
--- NOTE | 2019-09-13 12:57 | ER ---
Nurse's Notes [facility] Name: Peter Adams Age: 64 yrs Sex: Male : 1955 Arrival Date: 09/13/2019 Time: 10:30 Bed 13 Private MD: Sandeep Madrid Diagnosis: Fever, unspecified;Acute upper respiratory infection, unspecified Presentation: 09/12 10:45 Chief complaint: Patient states: Runny nose, cough, subjective fever, body aches and ss headache that began 4 days. Coronavirus screen: Surgical mask placed on patient. Patient moved to private room, placed in contact and droplet isolation with eye protection until further assessment. Patient reports a cough. Patient denies shortness of breath or difficulty breathing. Patient reports a measured and/or subjective temperature greater than 100.4F. Patient denies travel on a cruise ship or to a country the [facility] currently lists as an affected area. Patient denies contact with known and/or suspected case of COVID-19. Ebola Screen: Patient denies exposure to infectious person. Patient denies travel to an Ebola-affected area in the 21 days before illness onset. Initial Sepsis Screen: Does the patient meet any 2 criteria? No. Patient's initial sepsis screen is negative. Does the patient have a suspected source of infection? No. Patient's initial sepsis screen is negative. Risk Assessment: Do you want to hurt yourself or someone else? Patient reports no desire to harm self or others. Onset of symptoms was September 09, 2019. 10:45 Method Of Arrival: Ambulatory ss 10:45 Acuity: TIAGO 3 ss Historical: - Allergies: 10:47 GABAPENTIN; ss 10:47 morphine (N/V); ss 10:47 Tetanus Vaccines \T\ Toxoid; ss - PMHx: 10:47 Hypertension; ss - PSHx: 10:47 Tonsillectomy; throat polyps; Vasectomy; ss - Immunization history:: Adult Immunizations up to date. - Social history:: Smoking status: Patient denies any tobacco usage or history of. - Family history:: not pertinent. Screenin:10 Abuse screen: Denies threats or abuse. Nutritional screening: No deficits noted. aa5 Tuberculosis screening: No symptoms or risk factors identified. Fall Risk None identified. Assessment: 11:10 General: Appears comfortable, Behavior is calm, cooperative. Pain: Complains of pain in aa5 whole body Pain currently is 7 out of 10 on a pain scale. Quality of pain is described as aching, Is continuous. Neuro: Level of Consciousness is awake, alert, obeys commands, Oriented to person, place, time, situation. Cardiovascular: Heart tones S1 S2 present Rhythm is regular. Respiratory: Reports cough that is Airway is patent Respiratory effort is even, unlabored, Respiratory pattern is regular, symmetrical, Breath sounds are clear bilaterally. Denies shortness of breath. GI: Abdomen is round Bowel sounds present X 4 quads. Abd is soft and non tender X 4 quads. : No signs and/or symptoms were reported regarding the genitourinary system. EENT: Reports nasal congestion. Derm: Skin is pink, warm \T\ dry. Musculoskeletal: Range of motion: intact in all extremities. 11:35 Reassessment: Patient is alert, oriented x 3, equal unlabored respirations, skin aa5 warm/dry/pink. Awaiting chest x-ray, pt notified of wait time. . 13:45 Reassessment: Patient is alert, oriented x 3, equal unlabored respirations, skin aa5 warm/dry/pink. Vital Signs: 10:45 BP 126 / 85; Pulse 80; Resp 16; Temp 100.6(TE); Pulse Ox 96% on R/A; Weight 115.67 kg; ss Height 5 ft. 7 in. (170.18 cm); Pain 7/10; 13:00 BP 128 / 69; Pulse 68; Resp 16 S; Temp 99.0(O); Pulse Ox 96% on R/A; aa5 10:45 Body Mass Index 39.94 (115.67 kg, 170.18 cm) ED Course: 10:30 Patient arrived in ED. mr 10:30 Sandeep Madrid, is Private Physician. mr 10:47 Triage completed. ss 10:47 Arm band placed on right wrist. ss 10:50 Georges Moon MD is Attending Physician. [facility] 10:58 Annelise Pate, SANDRA is Primary Nurse. aa5 11:10 Flu and/or RSV swab sent to lab. COVID 19. mh5 12:03 Patient has correct armband on for positive identification. Placed in gown. Call light mh5 in reach. Side rails up X 1. Pulse ox on. NIBP on. 12:04 COVID-19 Sent. 5 12:04 Influenza Screen (a \T\ B) Sent. 5 12:11 Chest Single View XRAY In Process Unspecified. EDIN 12:55 Sandeep Madrid DO is Referral Physician. [facility] 14:00 No provider procedures requiring assistance completed. Patient did not have IV access aa5 during this emergency room visit. Administered Medications: 11:35 Drug: Tylenol 1000 mg Route: PO; aa5 13:45 Follow up: Response: No adverse reaction aa5 13:15 Drug: Decadron 6 mg Route: IM; Site: right deltoid; aa5 13:45 Follow up: Response: No adverse reaction aa5 13:15 Drug: Zithromax 500 mg Route: PO; aa5 13:45 Follow up: Response: No adverse reaction aa5 Outcome: 12:56 Discharge ordered by . [facility] 14:00 Discharged to home ambulatory. [facility] 14:00 Condition: stable 14:00 Discharge instructions given to patient, Instructed on discharge instructions, follow up and referral plans. medication usage, Demonstrated understanding of instructions, follow-up care, medications, Prescriptions given X 3. 14:10 Patient left the ED. 5 Addendum: 09/17/2019 07:13 Addendum: COVID-19 Result: Positive result giiven to ED physician to notify pt. s s Physician attempted to contact pt. Other: VM left by Dr. Moon. Signatures: Dispatcher [employer] Georges Cummings MD MD cha Rivera, Mary mr Calderon, Audri, RN RN [facility] Eli Graves RN RN ss Martinez, Maria [facility] Corrections: (The following items were deleted from the chart) 09/12 19:23 14:29 Patient left the ED. [place] [id number]
[2019-09-13] MEDS ORDERED: dexAMETHasone 4 MG/ML VIAL ONE (13:16)
[2019-09-13] MEDS ORDERED: AZITHROMYCIN 250 MG TAB ONE (13:16)
[2019-09-13 14:51] VITALS: O2SAT 96
[2019-09-13 14:53] VITALS: BP 128/69; TEMP 99
== END 2019-09-13 14:29 | disposition home or self-care (01) ==
LOC: ER 10:25
DX: U07.1 COVID-19 (principal); J98.8 Other specified respiratory disorders
CPT/HCPCS: 71045; 87804; 96372; 99284; U0001

== ENCOUNTER 2019-09-18 22:23 | Inpatient (IN) | payer OTHER ==
--- OUTSIDE RECORDS SUMMARY | 2019-09-18 22:26 | XMS REPORT | Clinical Summary ---
:1955 Author Organization [facility] Address [address] [place] [address] Care Team Providers Name Role Phone Jen [...] 11/04/2018 Orders Only General Internal Medicine after 09/17/2018 Social History Tobacco Use Types Packs/Day Years [...] BY Khris ROGERS RN ON 10/28/2018. CONFIRMATION #[id number]. 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 CONFIRMATION #[id number]. TISSUE EXAM AP Routine 11/06/2018 3:36 PM CDT Resu lts for this procedure are in the results sec tion. ECG 12-LEAD Routine 11/04/2018 11:54 AM CDT Procedure Note - Interface, External Ris In - 11/04/2018 5:07 PM CDT Ventricular Rate 55 BPM Atrial Rate 55 BPM P-R Interval 186 ms QRS Duration 88 ms Q-T Interval 442 ms QTC Calculation(Bazett) 422 ms P Jackson 36 degrees R Jackson 33 degrees T Jackson 60 degrees Sinus bradycardia Otherwise normal ECG [...] i n the results section . after 09/17/2018 Results Tissue Exam (11/06/2018 3:36 PM CDT) Case Report Surgical Pathology Report Case: [id number] [facility] Authorizing Provider:Mitch Reeves MD Collected: 11/06/2018 1536 [facility] Ordering Location: [facility] Received:11/09/2018 0814 SERVICES Pathologist: Miriam Barajas MD Specimen:Lesion, rig ht vocal fold leion DIAGNOSIS RIGHT VOCAL CORD, LARYNGOSCOPIC EXCISION OF LESI ON: [facility] - VOCAL CORD POLYP [facility] - NEGATIVE FOR DYSPLASIA OR MALIGNANCY Signing Pathologist Direct Phone Line: CPT Code(s) [address] 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 The specimen is submitted in toto in cassette A1. KM/ew MICROSCOPIC DESCRIPTION PERFORMED [facility] Specimen Tissue Performing Organization Address City/State/Zipcode Phone Number [facility] [address] [place] [address] CENTER ECG 12 lead (11/04/2018 11:54 AM CDT) Specimen Narrative Performed At Ventricular Rate 55 BPM GE MUSE Atrial Rate 55 BPM P-R Interval 186 ms QRS Duration 88 ms Q-T Interval 442 ms QTC Calculation(Bazett) 422 ms P Jackson 36 degrees R Jackson 33 degrees T Jackson 60 degrees Sinus bradycardia Otherwise normal ECG No previous ECGs available Confirmed by Reggie JOHNSON MICHAEL ([id number]) on 11/05/2018 7:13:23 AM Procedure Note Interface, External Ris In - 11/05/2018 7:13 AM CDT Ventricular Rate 55 BPM Atrial Rate 55 BPM P-R Interval 186 ms QRS Duration 88 ms Q-T Interval 442 ms QTC Calculation(Bazett) 422 ms P Jackson 36 degrees R Jackson 33 degrees T Jackson 60 degrees Sinus bradycardia Otherwise normal ECG No previous ECGs available Confirmed by Reggie JOHNSON MICHAEL ([id number]) on 11/05/2018 7:13:23 AM Performing Organization Address [facility] Phone Number MUSE BUN and Creatinine (11/04/2018 11:52 AM CDT) BUN 13 7 - 21 mg/dL [facility] Creatinine 0.95 0.57 - 1.25 mg/dL [facility] EGFR 81Comment: ESTIMATED GFR IS mL/min/1.73 sq m [facility] NOT ACCURATE CREATININE [facility] CLEARANCE IN PREDICTING GLOMERULAR FILTRATION RATE. ESTIMATED GFR IS NOT APPLICABLE FOR DIALYSIS PATIENTS. Specimen Blood Performing Organization Address [facility] Phone Number [address] [address] CENTER Hemoglobin (11/04/2018 11:52 AM CDT) Hemoglobin 14.2 13.7 - 17.5 GM/DL [facility] Specimen Blood Performing Organization Address [facility]/Zipcode Phone Number [place] [phone] [place] [address] CENTER Electrolytes (11/04/2018 11:52 AM CDT) Sodium 140 136 - 145 meq/L [facility] Potassium 4.2 3.5 - 5.1 meq/L [facility] Chloride 106 98 - 107 meq/L [facility] CO2 29 22 - 29 meq/L [facility] Specimen Blood Performing Organization Address City/State/Zipcode Phone Number [facility] [address] [place] [address] CENTER after 09/17/2018 Insurance Payer Benefit Plan / Group Subscriber ID Type Phone A liza BATES xxxxxxxxxxx
--- OUTSIDE RECORDS SUMMARY | 2019-09-18 22:27 | XMS REPORT | Continuity of Care Document ---
:1955 Author Organization [facility] t Address [address] [place] [address] Care Team Providers Name Role Phone Jen Chen Primary Care Physician Doctor Unassigned, Name Attending Clinician Unavailable JOE Attending Clinician Unavailable Joe MEJIA Attending Clinician Alejandra Alejandro MD Attending Clinician Adrien YO Attending Clinician Joe MEJIA Attending Clinician JOE Admitting Clinician Unavailable Payers Payer Name Policy Policy Number Effective Expiration Source Type Date Date AMBETTERAMBETTER xxxxxxxxxxx [facility] SUPERIORxxxxxxxxxxx [facility] Problems Condition Condition Condition Status Onset Resolution [...] reaction 00 Center s Tetanus DA Active [facility] Vaccines 05-29 [place] and 00:00: d Toxoid 00 [facility] gabapent DA Active [facility] in 05-29 [place] 00:00: d 00 [facility] Tetanus Adverse Active Info Not [facility] Reaction Available [facility] Gabapent Adverse Active Info Not [facility] in Reaction Available [facility] Social History Social Habit Start Date Stop Date Quantity Comments Source History SDOH Alcohol [facility] - Std Drinks [facility] History SD[facility] Alcohol [facility] kes - Binge [facility] Sex Assigned At [facility] kes - [facility] History SDOH Alcohol 2018-11-04 2018-11-[address] [facility] - Frequency 00:00:00 00:00:00 [facility] Smoking Status Start Date Stop Date Source Never smoker [facility] Medications Ordered Filled Start Stop Current Ordering Indication Dosage Frequency Signature Comments Components Source Medication Medication Date Date Medication? Clinician (SIG) Name Name Montelukast Montelukast Yes Sandeep [address] [facility] Sodium Sodium 1-14 [place] [facility] - 00:[facility]: [facility] 00 [facility] sucralfate Yes 1g Take 1 g [...] MG tablet 10:50: daily. Medica l [address] [place] candesartan Yes 32mg QD Take [address] (ATACAND) 9-04 by mouth [facility] - 32 MG 10:50: daily. Medical tablet [address] [place] candesartan 2019- No 1{tbl} QD Take [address] -hydrochlor 11-04 tablet by Bebe kes - othiazide 10:47: 00:00 mouth Medica l (ATACAND 33 :00 daily. [place] HCT) 16-12.5 mg per tablet Candesartan Candesartan Yes Sandeep [address] [address] Cilexetil Cilexetil [place] [facility] Lansoprazol Lansoprazol Yes Sandeep [address] e e [place] [facility] Bystolic Bystolic Yes Sandeep [address] [place] [facility] Furosemide Furosemide Yes Sandeep [address] [facility] [place] [facility] Spironolact Spironolact Yes Sandeep [address] [address] one one [place] with food [facility] Tizanidine Tizanidine Yes Sandeep TAKE [address] [facility] [address] HCl HCl [place] TABLET BY [facility] - MOUTH Memoria EVERY 12 l HOURS Outpati NEEDED ent Clinics Edarbyclor Edarbyclor Yes Sandeep [address] [facility] [place] [facility] NIFEdipine NIFEdipine Yes Sandeep [address] ER ER [place] on an [facility] - empty Memoria stomach l [facility] Nifedipine Nifedipine Yes Sandeep not C [facility] ER ER [place] defined [facility] Immunizations Ordered Filled Immunization Date Status Comments [facility] e Immunization Name Name Afluria single dose Afluria single dose 2019-01-[address] [facility] - 00:00:00 [facility] Outpatient [facility] Vital Signs Vital Name Observation Time Observation Value Comments Source Systolic blood 2018-11-06 17:52:00 138 mm[Hg] [facility] pressure [facility] Diastolic blood 2018-11-06 17:52:00 71 mm[Hg] [facility] pressure [facility] Heart rate 2018-11-06 17:52:00 81 /min [facility] Body temperature 2018-11-06 17:52:00 36.72 [place] [facility] Respiratory rate 2018-11-06 17:52:00 17 /min [facility] Oxygen saturation in 2018-11-06 17:52:00 94 /min [facility] Arterial blood by Medical Ce nter Pulse oximetry Body height 2018-11-06 11:00:00 170.2 cm [facility] Body weight Measured 2018-11-06 11:00:00 118.3 kg [facility] BMI 2018-11-06 11:00:00 40.85 kg/m2 [facility] Procedures Procedure Date / Time Performing Clinician Source Performed LARYNGOSCOPY,EXCISION/ 2018-11-06 15:54:00 Mitch Diaz CH, I [facility] - RECONSTRUCTION W/ FLAP Medical C enter LARYNGOSCOPY,MICROSUSPENSI 2018-11-06 15:54:00 Migue Diaz [facility] - ON EXCISION TUMOR [facility] TISSUE EXAM 2018-11-06 15:36:00 Mitch Diaz [facility] ECG 12-LEAD 2018-11-04 11:54:41 Unknown, Hl7 Doctor [facility] BUN AND CREATININE W/RATIO 2018-11-04 11:52:00 Toby Bolden [facility] ELECTROLYTE PANEL 2018-11-04 11:52:00 Toby Bolden [facility] HEMOGLOBIN 2018-11-04 11:52:00 Toby Bolden [facility] Encounters Start End Encounter Admission Attending Care Care Encounter Source Date/Time Date/Time Type Type Clinicians Facility Department ID 2019-09-10 2019-09-10 [facility] [id number] 14:21:00 14:21:00 [employer] [facility] 2019-08-04 2019-08-04 [facility] [id number] 09:30:00 09:30:00 [employer] [facility] 2019-07-06 2019-07-06 [facility] [id number] 09:00:00 09:00:00 [place] [employer] [facility] Medicine Outpati ent Clinics 2019-06-07 2019-06-07 [facility] [id number] 09:35:00 09:35:00 [place] [employer] [facility] Drive [facility] Medicine Outpati ent Clinics 2019-06-03 2019-06-03 [facility] [id number] 09:00:00 09:00:00 [place] [employer] [facility] Outpati ent Clinics 2019-05-21 2019-05-21 [facility] [id number] 10:12:00 10:12:00 [place] [employer] [facility] Medicine Outpati ent Clinics 2019-05-14 2019-05-14 [facility] [id number] 16:37:00 16:37:00 [place] [employer] [facility] Outpat[facility] ent Clinics 2019-05-13 2019-05-13 [facility] [id number] 10:30:00 10:30:00 [place] [employer] [facility] Outpati ent Clinics 2019-04-22 2019-04-22 [facility] [id number] 16:41:00 16:41:00 t [facility] [employer] [facility] [employer] [facility] Outpati ent Clinics 2019-04-19 2019-04-19 [facility] [id number] 08:30:00 08:30:00 [place] [employer] [facility] Out[facility] ent Clinics 2019-04-14 2019-04-14 Orders Doctor ALLEN [id number] 00:00:00 00:00:00 Only Unassigned, BLACK [id number] [place] [facility] [id number] 2019-03-16 2019-03-16 [facility] [id number] 13:47:00 13:47:00 [place] [employer] [place] - Drive [facility] Outpati ent Clinics 2019-03-16 2019-03-16 [facility] [id number] 09:30:00 09:30:00 [place] [employer] - Drive [facility] Outpati ent Clinics 2019-02-08 2019-02-08 [facility] [id number] 14:00:00 14:00:00 [place] [employer] s - Drive [facility] Outpati ent Clinics 2019-01-12 2019-01-12 [facility] [id number] 14:45:00 14:45:00 t [place] [employer] [facility] Outpati ent Clinics 2018-12-10 2018-12-10 [facility] [id number] 14:30:00 14:30:00 [facility] [employer] [facility] [employer] [facility] Outpati ent Clinics 2018-10-14 2018-10-14 Office Adrien [facility] [id number] 08:46:19 09:29:51 Visit Bridgette AMBULATOR [id number] Y [id number] 2018-10-05 2018-10-05 Office Joe [facility] [id number] 10:33:46 12:48:03 Visit Julina AMBULATOR [id number] Y [id number] 2018-09-28 2018-09-28 [facility] [id number] 10:15:00 10:15:00 [facility] - Drive [facility] Outpati ent Clinics 2018-09-11 2018-09-11 [facility] [id number] 16:00:00 16:00:00 t Urgent [facility] L [facility] - Care Clinic [facility] Outpati ent Clinics 2018-09-10 2018-09-10 [facility] [id number] 16:37:00 16:37:00 [place] [employer] [facility] - Drive [facility] Medicine Medicine Outpati ent Clinics 2018-06-29 2018-06-29 [facility] [id number] 10:00:00 10:00:00 t [employer] [facility] Medicine l Medicine Outpati ent Clinics 2018-04-29 2018-04-29 [facility] [id number] 10:00:00 10:00:00 t [employer] [facility] Outpati ent Clinics 2018-04-07 2018-04-07 [facility] [id number] 09:45:00 09:45:00 t [employer] [facility] Outpati ent Clinics 2018-03-27 2018-03-27 [facility] [id number] 10:42:00 10:42:00 t Urgent Urgent Care L u[facility] - Care Clinic [facility] Clinic l Outpati ent Clinics 2018-03-27 2018-03-27 [facility] [id number] 09:30:00 09:30:00 t [facility] - Care Clinic [facility] Clinic l Outpati ent Clinics 2018-03-25 2018-03-25 [facility] [id number] 09:45:00 09:45:00 t [employer] [facility] Medicine Medicine Outpati ent Clinics 2017-10-08 2017-10-08 [facility] [id number] 13:00:00 13:00:00 t [employer] [facility] Medicine Medicine Outpati ent Clinics 2017-09-23 2017-09-23 [facility] [id number] 10:00:00 10:00:00 t [employer] [facility] Medicine Medicine Outpati ent Clinics 2017-06-09 2017-06-09 [facility] [id number] 09:30:00 09:30:00 t [employer] [facility] Outpati ent Clinics Results Test Description Test Time Test Comments Results Result Comments Source Tissue Exam 2018-11-10 15:15:00 Test Item Value Reference Range Interpretation Comme nts Case Report (test code = 104) Surgical Pathology Report Case: [id number] Authorizing Provider: Mitch Diaz MD Collected: 11/06/2018 1536 Ordering Location: [facility] Received: 11/09/2018 0814 SERVICES Pathologist: Miriam Barajas MD Specimen: Lesion, right vocal fold leion DIAGNOSIS (test code = 3220) n5yfxEJzOOXah0pfUJXzdSTkPoRiPsKmZeFeIs pc wDGhVRqkqbSpUHmvb1AiI6YmDxBxCLtpqqPdARJj YiohjeovCLEeFDW1ixSpBPNfVYadNETyCOlkYy9q nSBytOniHzTlBXLdm3jiinRRabrwsEh6yTfrL40r n1I1LsosX1gaGUKfGGSwF6ZtWY8uILHoTeb4ICE7 KVU8TUWmKSDaD6ZdGF3aDGWnuHSsQKy6g3nfrAho DDNyUCA4h9ioOInqkvEpPH1xgj1vtHw2w0ckoiLs VJUrPYMuzEFRYSJyA9FeiHebMl8prQz2qTciSqeh BLO0Lxa0QK2qkb87gsc7sQzdYMQdhvzmFoE1GAco SSOfwgvuODq8DCglPFBjtHgpJLopEKNsxrzeJLrv OUZqkFdsDImiBVTrHercXAajDTDdJHY0XHwvv480 LQU6AEvdg3dwj4eqgMAcNnx4QRRzZnPqAuygFTrf f3Oox7ydTTVbji9sLJG1aBJwlQwhs8G3lHHhFVPy pHUifsQzLZBjAgV7UGfmWD5pno08FGUfHLF5od5p gGXkxTrpfmYduGRoAWmcF8GvALHyg524UKZxL0Ez OPGqn2R5sxLoPcSmNYJwxPP9kcO8IWRpNYm3iAMy dzN8dpFjjKIsJ9anwP73YiUogCVyF5SmxQ46YuLi rKVuV8BigE93OqCsuXPgE9AteH97ErCocCTjEAQv nZFmPm0rpGEiiHRcf8FdhFJeLRzxL90bk676NOAg vvQjH5zniJCypbwshJLphifoEAspgrF0UKNmJRCo YWluXGYwXGZzMjBcbGFuZzEwMzNcaGljaFxmMFxk XmDeNDXgILvdO8vuJiVaHmXeNYEOWSyKJPJBS8BA SBLUQ0UAJOTFSQIPHtqIW1QXLGfCPCXRP5sMRY4R YL3RZArZK7dBCqoldMJqGZCwPGRYB0DMKOPKYiNy TC5QDOYyjBTcJMVrYI6JL7CWGNAVLXFCAeEHYKVD JAFIQKRdY2XaDUMIAPtAWQ2AVPflRGA3p8zxiAPs XHNzdGUxODAwMFxhbnNpXGRlZmxhbmcxMDMzXGZ0 exWwQXKtFXdaSUCvDQsnPg4arKFgfMxpAjTeJBRx q9yulzTKduqumQx5c6tfRQLnSxV0rZOrFEunU3qv zzNqjHCsOSYmRAo1zC22WJBycK3uvITmJFqpaqZt ZvA9QQotNBAoQbE2ODAneQYrRTMxN2loGYLzCZjm MTAnDUhioLGjPWG4rXxzq0W7oSIyxFSgoUaqDbHl GpRjTxZAt3JnBXj4jFhaC5YkBOUeCzK1nRBcVUZz YEkdRBIpYYGakcX7iY01JJcxjfD6iHFug2Jfx76n h668gM3uwQAlSJL4OVCwPCQhwHBmVAMiGXU5UJXm dFWaM8cqJRSrTG6gmlnzVXxyKLrhWDZnuWZ3ZCYx dYKtT7GtIHKrCHarZGZwwbd5YoDpYg7thHNpkZsl POtqu7dfl1lgeVNgZki4XHJcOjIbEoukHRjwj2Dv k3kdRXGrrt3bGCE8aHErhOuzw0H8zVUaXJKczYDi EFNgNW1miVBaWAWmjU6kxndpGBOnTlJswsekVUZo nBpvgqFmKg3cqXmmMCH2HFsxF8oiaD1rXyU1KZwj V8vtuB4qUNu9UXhvYLAnnFX7vmG6DTNrcAFuP2Sr bA9wJPYtWB7nxty6x5qmXDR2MCksALDuDoR3jkL4 OBBmiDHnOUJryMmwPZfat101XAT9WmFpRJVml0Ny T3KtiHpgB77ihGmoK26iENDdbYrcsW0jaHuweA4k QwMwQsLxHErsiGqeDD6yOLRwK3tzuTXdWRKzETQo F8hvDkNkmR0mhTyiNBzqstGcRAImQxi4WQQfvSPc LASqSek5CKDiOMMaV19llqkqYUS1rH2od8dvc5Mh AQyuVAS4SPUae18fWQjtzbR4AMwiSx7vFzKfSNC8 OZerWWM5sQ== CPT Code(s) (test code = 3357) l2jjyKWeLKRoyTXoAxShDGKaKIRww6dnNOGf bGFu ToUaOsBhLlWaFjadxHOoODYfYdFyy3ofw255sBIq r2fuAFJvVpN7oCImYLNduKPhJ757y5vai2bsavOc hPB0AHQwFIQ9PUymqjCmsgW4LMplaYVvBgT5JBhv xiRdSOqcmdTuidQjGaq8VNXtH901WEZ2eAuus7va KVZ7SMShIAYuLlGaXg6ptLObN124AXMsUVVUISXz gFe6UOVlexCwzsKsbERXe775L931s4yhXEYctfIp sFyNwepuf2rqI869BNPhdCHgjdKvFsFpKUYmhUNn oFY7BBDzJR8yxxniUnZrIX8higlhRnXqHQ1hbgk7 XbWpHB4zysktNuVkRFbuPMIlqsyvEJDxn9Zwcuiy AL5zN8Azu0U6xC0ozBUkGTKhjYYkCjFgZKXnqz1l eGRdQVwpx6JzEJY4ncC8dQFjqXRiGXXaQB71Vzpd v8GyElznGTN3BVNobmXub9Reu4ypAmRlhcTaV4fq J3UiBIHaKWImHJJnDhFvqaHym1Eql8FjjVYkkSj0 c7wdQQCqYZZyiUueu8ljDUO3DYDqA0I6pTQza2nz JGkiVETubVF2aqemDWrdNTCnloD1dtnfGSuiWMUu zBV7rfnnIJdzVTBxBsN1jzkpYJlxJJQaMOH3HBzq k842QXB9GQtjLyhaPIulBLTmouDuddHwcAryEQAt WTObIHbhQORiXTetCPRuYYIpKsXzdOaqfZbihR7m DoJpXwYwWZddPQ0nGZLfL1dsdTDgOTQgSQPfN1lw HkHbwY4zjJulZSlgmiQoLXh4DsR0PJXrfw3= CLINICAL HISTORY (test code = 3356) v3nrbCWbHCFytFUkTvZrOPQkUJKff8u cZGVmbGFu NzTtVlOoXvRcCcfgaKBzVKTjZtJci8lhp478nUJk j6nmFIVlLuS8zATiLTCehILwA401h4wek4ukhvSg lPL7XAQrUWZ2WTzambYttwR0PRjqtTRcWcO2ILae odEpJScjdeIzckXrHhl4TZYyE942HEM0nXqzp3yd NWX5YILuDBBmSoTmHk8ohTVxN852UDUrMIDRSFMd hUn0SEZiecIxseAbpVIQn702X313f7wmYFBlszSn yHhKulxhn0jkI823VZUwwEOlolHbCcXjACRdqQTy pOO1NEXhYQ8nejgrSqYkOJ4boilhCxIwLO4cpec7 CyOsCY1gzfquUzSvUBnsXEYqjzoeJULgv4Mneioh JR9pH6Wqk1X5jH4axESqZVSurQPrHeWpKHDbip3x rIIlYJpai7OvGDP9soS6kGQdvBCaLKKsIS72Jbyr e6ZbXicjAHO4LAXotlMrg6Jaj0laQnGfdmCfD0bx N8UqEOVpFPDpCXHxRuBhqvGri0Pdx3KitSGwiKx5 x0tcWSYfEHUrjRfbr2tzTDL1RFGuM1E9tJNxb5ba OJqgILJzmTW0lcdrRJnpQMYlleG7glvxMEhpYFTr nYY8mghgWXgiKZEaGiN0brdiBDjgOQBwBYB3WAzm d677OEI4DGbkXrngOPrjKVLvfrUxxmTixAlfVJBd OZQqHSmeTYAkURnlVHKjHMVbQeBqpAdwtOdgmN9a WyQiMqOdBQggCD6cRFGxH6pfpCCgNFQyHNEzE6tb OhLcpM0imMbzSVyxceBzCYCdjhdeczXpBA5zuEGh sMUgHiFmWEW5rupzKC4rw2MwKFBcFJ8bIPWoW2Pg yGPhrmIoMZqkcinfqlNaSqCcZNXozUExsS4ajOGt cmdhblxwYXJ9 SPECIMEN SOURCE (test code = 3377) l7ubbSSzABMsxETlNxIiAYIeYBNud8vt ZGVmbGFu WhPpUpIpHtWlEemnuIOeWZGbLhKwj7ayj520mBPf a3nuFLXdSxT4tBFxLGJvrWRhA470p7vqk4dusaEl zZG1NKWyCJF1JRdwrdJmkpY5KGpwvLDyNgX3QEjk muWcQPjslxVuvpCnLtv0SULjN535FDU3cEfdp7wr STI5RQLuDIGuPjPnRo7naHZpB630LJAcLTLEJCZp aUm7GWOrijJouvWcxDBTk037Y936h4whRLZyioWh gAfHjejka4btI243BXXdiMGfgzSpZxZaFGWpdMCy ePS6WNLnBG4wheaeZqIzXR4jyiqlXhYgUI6dxgt5 CyYfIP2oukeiNkGaPWzjCYEvhhzbWTOif0Naqvpy SE7mY1Zlh6H5hR0urJNrLQCcoXIcUiFsJJMhoq1u zXEvWXqwv5XkFZS3naH4rXUbiLEoMWOsJB31Wpim p0QdVarnWDB1RTAitkMrv2Kiv6ecBrEpdpNzS4sp R2NpWOKhRVRfZFLmDmKjssZdy4Xhx6NmzEIqiAk7 t2azFCQdKUJlaBkcz5ifITF7AOGdW1V2kAXgo8yc SJjsNCMexQP3noliETxcDUOghuM1eiweLYnwZYRk rFB8hzwkPDzxAHQnEdJ1ezdqPDcfGXUuHLS7POgb a325EXF5KByfIecgGXjbRVWjldSjnfYhlRlwEVKn VPUyGCxlOQGdMHhtLZVjYRInNwLewJtnfPjfsD3s IpYdBkIxBXdeKU2pIGXsV5ajqRVxWPDrEIUmG7im VxZldW8hoCbvRMncqwLaEHibp9fdzdG7zQHpxDCy libtaAEmrm5mGFgmIc7gXMLtNTEnr62gBMQjbx2= GROSS DESCRIPTION (test code = 3366) o0prlKLjCNUgqOWcViJoJFKsCOXvl3 lcZGVmbGFu [file] IKuOH9Q4BEqgNMZ4 MICROSCOPIC DESCRIPTION (test code = b1uxpTAbZCBowBKeAdTsTRFqOAKlj6 [facility] QtFaGuRpUrFnRcewoBIrZJQhQrPkd1mbr201bIHa r0oiEIOgSyR7tZTvUONqdWLnQ370t5etu4mogeCa lSJ3IWErTOG4CDagqxLvggY7CZfoyVWpMfR4BMdb jgFvTGugdwXsbuIkUoo5HKXdE803MRC5aIjmv2nu KMT5ZLSzKIPfOoBtHw4keTQjP531WJOiEAXBLVIu sIs0YTWztvXaoiNztGTBe270D934c9fjPVWtggDc zAsIjxqfo7wzO186FWNezLXrloCrGeQyDIRlzPAz uRD2GQWjDB5pdtxwNmWjAP2dzvbdVxBoJY6vclg9 ZmCiAW6fzdeoDaByURygMSWmkybjCJJmk8Qfisrv XL7vL8Gth6Y5fA8geSLySMTgfVYdPbAaVEXdzt3h lQWpNFkje9InEBE6mtH0aVBpjBZbRRZqJP76Hytd v8KsAvkgHCF7IYBusyDbk2Dgd4hbGvQoqjHcM4sq I1IfMFTdJJEsYWZrWmYzzhOml9Hyk5DipEDmvGc3 v4alXSYnJUXlsVyzw1eaLUW9TKPrP3M6nGUns7js PGaaUCGvrCX3slunKIewHGMuruV2uuwtJHmwRNJe pRG6dflgERplPDDiNrX4ijyuDFoqVPHeHCV9XDuf w574OGD4NXsuDohvRGqcDCVtndPssuZdsKngQWTn WSJuKUiyYGOkIWnhFAXlOGVrUnEnnMenoEgrvD7v VgTzNsVlJTlfSU6dZPPuH1cpnCLxZMTgEFLtX3yk OkKanW5mrZglJCsrtzMwYQNLZyBLBf4JKSzlCIW3 [facility] [id number] 15:15:00Surgical Pathology Report Case: [id number] Authorizing Provider: Mitch Diaz MD Collected: 11/06/2018 1536 Ordering Location: [facility] Received: 11/09/2018 0814 SERVICES Pathologist: Miriam Barajas MD Specimen: Lesion, right vocal fold leion RIGHT VOCAL CORD, LARYNGOSCOPIC EXCISION OF LESION: - VOCAL CORD POLYP - NEGATIVE FOR DYSPLASIA OR MALIGNANCY Signing Pathologist Direct Phone Line: [phone] signed by Miriam Barajas MD on11/10/2018 at 3:15 [id number] neoplasm of larynx, neoplasm of uncertain behavior of respiratory organLesion tissue right vocal fold lesion Received in formalin labeled with the patient's name, accession number and "lesion right vocal fold lesion" is a 0.2 cm in greatest dimension, velazquez-white to red-brown tissue. The specimen is submitted in toto in cassette A1. KM/ew PERFORMEDECG 12 [id number] 07:13:28Interface, External Ris In - 11/05/2018 7:13 AM CDTVentricular Rate 55 BPMAtrial Rate 55 BPMP-R Interval 186 msQRS Duration 88 msQ-T Interval 442 msQTC Calculation(Bazett) 422 msP [place] 36 degreesR [place] 33 degreesT [place] 60 degreesSinus bradycardiaOtherwise normal ECGNo previous ECGs availableConfirmedby Reggie JOHNSON, REGINA (150) on 11/05/2018 7:13:23 [facility]00 Test Item Value Reference Range Interpretation Comments Sodium (test code = 2951-2) 140 meq/L 136-145 Potassium (test code = 2823-3) 4.2 meq/L 3.5-5.1 Chloride (test code = 2075-0) 106 meq/L 98-107 CO2 (test code = 8-9) 29 meq/L 22-29 Lab Interpretation (test code = Normal 21823-0) [facility] [id number] 13:45:00 Test Item Value Reference Range Interpretation Comments BUN (test code = 13 mg/dL 7-21 3094-0) Creatinine (test code 0.95 mg/dL 0.57-1.25 = 2160-0) EGFR (test code = 81 mL/min/1.73 [place] [address]-6) ACCURATE CREATININE ADAM CANDICE IN PREDICTING GLOMERULAR FILT RATION RATE. ESTIMATED GFR IS NOT APPLICAB LE FOR DIALYSIS PATIEN TS. [facility] 13:45:00 Test Item Value Reference Range Interpretation Comments SODIUM (BEAKER) (test code = 381) 140 meq/L 136-145 POTASSIUM (BEAKER) (test code = 4.2 meq/L 3.5-5.1 379) CHLORIDE (BEAKER) (test code = 382) 106 meq/L 98-107 CO2 (BEAKER) (test code = 355) 29 meq/L 22-29 BUN AND [id number] 13:45:00 Test Item Value Reference Range Interpretation Comments BLOOD UREA NITROGEN 13 mg/dL 7-21 (BEAKER) (test code = 354) CREATININE (BEAKER) 0.95 mg/dL 0.57-1.25 (test code = 358) EGFR (BEAKER) (test 81 mL/min/1.73 ESTIMA ALAINA GFR IS code = 1092) sq m NOT ACCURATE CREATININE CLEARANCE IN PREDICTING GLOMERULAR FILTRATION RATE . ESTIMATED GFR I S NOT APPLICABLE FOR DIALYSIS PATIEN TS. [id number] 13:28:00 Test Item Value Reference Range Interpretation Comments Hemoglobin (test code = 786-4) 14.2 13.7- 17.5 GM/DL Lab Interpretation (test code = Normal 86246-8) [facility] 13:28:00 Test Item Value Reference Range Interpretation Comments HEMOGLOBIN (BEAKER) (test code = 14.2 GM/DL 13.7-17.5 410) [id number] 15:12:00 RUN DATE: 06/04/18 [facility] - LAB *LIVE* PAGE 1 RUN TIME: 1512 Specimen Inquiry RUN USER: INTERFACE PATIENT: JOHNY MORSE LOC: MARYAM U #: [id number] AGE/SX: 62/M ROOM: RE06/02/18[facility] DR: eDlroy Petersen MD : 59 BED: DIS: STATUS: [place] [facility] [place]: SPEC #: [id number] RECD: 06/03/18 STATUS: NICKY DARREN #: [id number] MAYKEL: 06/02/[address] [facility] [address]: Delroy Petersen MD ENTERED: 06/03/18 SP TYPE: SURG OTHR DR: Jordin Madrid MD ORDERED: AB/[facility]/2, SURG PATH LVL 4/2, PATH STAIN GROU COPIES TO: Jordin Madrid MD [address] [place] [address] Delroy Petersen MD [address] [place], [place] [address] HISTOLOGY: TISSUE ID BLK PCS JUNE LEV PROCEDURE DISPOSITION ____ ___ ___ ___ STOMACH, NOS A 1 1 AB/[facility] AUG[facility] STOMACH, NOS A 1 2 PATH STAIN GROU ESOPHAGUS, NOS B 1 1 AB/[facility] PROCEDURES: ALBLUE (06/03/18) PAS (06/03/18920) SURG PATH LVL 4 (06/03/18) PATH STAIN GROU (06/03/18) TISSUES: A. STOMACH, NOS - GASTRIC BODY AND ANTRUM B. ESOPHAGUS, NOS - DISTAL ESOPHAGUS CLINICAL HISTORY HEARTBURN - R12; NAUSEA -R11.0; ABDOMINAL PAIN -R10.9 CPT CODES CPT CODE(S): 01977F6 , 97799 , 19587V3 , , , , FINAL DIAGNOSIS A. Stomach, body and antrum, biopsy: MILD CHRONIC GASTRITIS NEGATIVE FOR INTESTINAL METAPLASIA, DYSPLASIA, OR MALIGNANCY NEGATIVE FOR HELICOBACTER PYLORI ORGANISMS??? CONTINUED ON NEXT PAGE RUN DATE: 06/04/18 [facility] - LAB *LIVE* PAGE 2 RUN TIME: 1512 Specimen Inquiry RUN USER: INTERFACE S PEC #: [id number] PATIENT: JOHNY MORSE #[id number] (Continued) FINAL DIAGNOSIS (Continued) B. Esophagus, distal, [...] all as B. ba/nr Grossing performed at [facility] Pathology, [address], [address], [place] [address]. Hospice Physician: Kevin Lloyd M.D. MICROSCOPIC DESCRIPTION A. Gastric [...] cells). Signed SIGNATURE ON FILE Brian Mares Miguel Angel 06/04/18 1512 END OF REPORT
--- OUTSIDE RECORDS SUMMARY | 2019-09-18 22:27 | XMS REPORT ---
[...] End Status Dosage System Date Date Montelukast [facility] 16542294559 10 MG Orally Rickey 14, Active 1 t ablet Sodium Once a day [address] [facility] 19783420797 5 MG Orally Active 1 table t Once a day Lansoprazole [facility] 49635895645 30 MG Orally Active 1 capsule Once a day Duloxetine HCl [facility] 18657527740 20 MG Orally Inactive 1 capsule Twice a day Candesartan [facility] 09012222786 32 MG Orally Active 1 t ablet Cilexetil Once a day Furosemide ND 91128970524 40 MG Orally Active 1 ta blet Once a day Spironolactone [facility] 88448279152 25 MG Orally Active 1 tablet Once a day with food Tizanidine HCl [facility] 94585623486 4 MG Oral Active JC E 1 TABLET BY MOUTH EVERY 12 HOURS NEEDED Results No Known Results Summary Purpose eClinicalWorks Submission
--- OUTSIDE RECORDS SUMMARY | 2019-09-18 22:28 | XMS REPORT ---
[...] End Status Dosage System Date Date Bystolic [facility] 79852362674 5 MG Orally Active 1 table t Once a day Candesartan [facility] 36442301814 32 MG Orally Active 1 t ablet Cilexetil Once a day Edarbyclor [facility] 92865596339 40-25 MG Orally Active 1 tablet Once a day NIFEdipine ER [facility] 37477701231 90 MG Orally Active 1 tablet Once a day on an empty stomach Nifedipine ER [facility] 30566371633 90 mg Oral Active not defined Spironolactone [facility] 94311057436 25 MG Orally Active 1 tablet Once a day with food Montelukast [facility] 63716808836 10 MG Orally Mar 16, Active 1 t ablet Sodium Once a day 2019 Lansoprazole [facility] 37198349323 30 MG Orally Active 1 capsule Once a day Tizanidine HCl [facility] 12930988796 4 MG Oral Active JC E 1 TABLET BY MOUTH EVERY 12 HOURS NEEDED Furosemide [facility] 86248410578 40 MG Orally Active 1 ta blet Once a day Results No Known Results Summary Purpose eClinicalWorks Submission
[2019-09-18] MEDS ORDERED: dexAMETHasone 10 MG/ML VIAL ONE (23:35)
[2019-09-18] MEDS ORDERED: HYDROCODONE/CHLORPHEN 5 ML/OSYR ONE (23:35)
[2019-09-18] MEDS ORDERED: ALBUTEROL INHALER 60 PUFF/8 GM IH ONE (23:36)
[2019-09-18] MEDS ORDERED: NA CHLORIDE 0.9% 1,000 ML ONE (23:36)
[2019-09-18 23:55] LABS: Arterial Blood Carboxyhemoglob 0.9 % (0-1.5); Blood Gas Oxyhemoglobin 93.6 % (94-97); Blood O2 Saturation 95.1 % (92-98.5)
[2019-09-19 00:57] LABS: ALT/SGPT 111 U/L (12-78); AST/SGOT 70 U/L (15-37); Albumin 2.9 g/dL (3.4-5.0); Alkaline Phosphatase 110 U/L (45-117); BUN Blood Urea Nitrogen 19 mg/dL (7-18); Bicarbonate 25 mmol/L (21-32); Bilirubin Direct < 0.1 mg/dL (0-0.2); Bilirubin Total 0.3 mg/dL (0.2-1.0); Glucose Level 97 mg/dL (74-106); NT PRO-BNP 97 pg/mL (<125); Potassium 3.1 mmol/L (3.5-5.1); Protein, Total 7.4 g/dL (6.4-8.2); Sodium Level 137 mmol/L (136-145); Troponin (Emerg Dept Use Only) < 0.02 ng/mL (0.0-0.045)
--- NOTE | 2019-09-19 02:54 | ER ---
Nurse's Notes [facility] Name: Peter Adams Age: 64 yrs Sex: Male : 1955 Arrival Date: 09/18/2019 Time: 22:27 Bed 7 Private MD: Sandeep Madrid Diagnosis: Pneumonia due to other specified bacteria;Coronavirus as the cause of diseases classified elsewhere;Hypoxemia Presentation: 09/17 22:37 Chief complaint: Patient states: Cough, SOB for 1 week. Here Friday, waiting on covid ll1 result. Coronavirus screen: Patient reports a cough. Patient reports shortness of breath or difficulty breathing. Patient reports a measured and/or subjective temperature greater than 100.4F. Patient denies travel on a cruise ship or to a country the [facility] currently lists as an affected area. Patient reports contact with known and/or suspected case of COVID-19. Patient instructed to continue to wear a mask when interacting with others. Patient moved to private room, placed in contact and droplet isolation with eye protection until further assessment. Ebola Screen: Patient denies travel to an Ebola-affected area in the 21 days before illness onset. Initial Sepsis Screen: Does the patient meet any 2 criteria? RR > 20 per min. HR > 90 bpm. Yes Does the patient have a suspected source of infection? Yes: Productive cough/pneumonia. Risk Assessment: Do you want to hurt yourself or someone else? Patient reports no desire to harm self or others. Onset of symptoms was September 13, 2019. 22:37 Method Of Arrival: Ambulatory ll1 22:37 Acuity: TIAGO 2 ll1 Historical: - Allergies: 22:38 GABAPENTIN; ll1 22:38 morphine (N/V); ll1 22:38 Tetanus Vaccines \T\ Toxoid; ll1 - PMHx: 22:38 Hypertension; ll1 - PSHx: 22:38 Tonsillectomy; throat polyps; Vasectomy; ll1 - Social history:: Smoking status: Patient denies any tobacco usage or history of. Patient/guardian denies using IV drugs. Screenin:46 Abuse screen: Denies threats or abuse. Nutritional screening: No deficits noted. ll1 Tuberculosis screening: No symptoms or risk factors identified. 23:40 Fall Risk None identified. jb4 Assessment: 23:40 General: Appears in no apparent distress. uncomfortable, Behavior is calm, cooperative, jb4 appropriate for age. Pain: Complains of pain in chest Pain radiates to back Pain currently is 8 out of 10 on a pain scale. Quality of pain is described as pressure, Pain began 1 day ago. Neuro: Level of Consciousness is awake, alert, obeys commands, Oriented to person, place, time, situation. Cardiovascular: Patient's skin is warm and dry. Respiratory: Reports cough that is dry, Airway is patent Respiratory effort is even, unlabored, Respiratory pattern is regular, symmetrical, Breath sounds are clear bilaterally. GI: No signs and/or symptoms were reported involving the gastrointestinal system. : No signs and/or symptoms were reported regarding the genitourinary system. EENT: No signs and/or symptoms were reported regarding the EENT system. Derm: Skin is intact, Skin is pink, warm \T\ dry. Musculoskeletal: Circulation, motion, and sensation intact. Range of motion: intact in all extremities. 09/18 01:00 Reassessment: Patient appears in no apparent distress at this time. Patient and/or jb4 family updated on plan of care and expected duration. Pain level reassessed. Patient is alert, oriented x 3, equal unlabored respirations, skin warm/dry/pink. PT is no longer coughing and appears to be resting more comfortably. Patient states feeling better. 02:00 Reassessment: Patient appears in no apparent distress at this time. Patient and/or jb4 family updated on plan of care and expected duration. Pain level reassessed. Patient is alert, oriented x 3, equal unlabored respirations, skin warm/dry/pink. 03:15 Reassessment: Patient appears in no apparent distress at this time. Patient and/or jb4 family updated on plan of care and expected duration. Pain level reassessed. Patient is alert, oriented x 3, equal unlabored respirations, skin warm/dry/pink. PT noted to have a temp of 100.9, provider notified, see MAR for orders. 03:41 Reassessment: Attempted to call report. Instructed to wait for call back, nurse dedrick currently doing admission assesment. 04:21 Reassessment: Patient appears in no apparent distress at this time. Patient and/or jb4 family updated on plan of care and expected duration. Pain level reassessed. Patient is alert, oriented x 3, equal unlabored respirations, skin warm/dry/pink. PT transferred upstairs. IV site converted to saline lock, flushes with ease, good blood return noted. Vital Signs: 09/17 22:37 Pulse 98; Resp 26; Temp 99.6; Pulse Ox 89% ; Pain 10/10; ll1 22:45 BP 158 / 85; ll1 23:30 BP 148 / 72; Pulse 90; Resp 24; Pulse Ox 96% on 2 lpm NC; jb4 09/18 00:30 BP 142 / 73; Pulse 87; Resp 25; Pulse Ox 92% on 2 lpm NC; jb4 01:15 BP 122 / 76; Pulse 91; Resp 25; Pulse Ox 95% on 2 lpm NC; jb4 01:45 BP 128 / 68; Pulse 88; Resp 20; Pulse Ox 92% on 2 lpm NC; jb4 02:45 BP 130 / 71; Pulse 77; Resp 21; Pulse Ox 93% on 2 lpm NC; jb4 03:15 BP 147 / 82; Pulse 89; Resp 17; Temp 100.9(O); Pulse Ox 95% on 2 lpm NC; jb4 04:00 BP 127 / 76; Pulse 76; Resp 16; Pulse Ox 94% on 2 lpm NC; jb4 04:23 Temp 99.8(O); jb4 ED Course: 09/17 22:27 Patient arrived in ED. do 22:27 Sandeep Madrid DO is Private Physician. do 22:38 Triage completed. ll1 22:39 Jermaine Kamara, SANDRA is Primary Nurse. jb4 22:39 Arm band placed on Patient placed in an exam room, on a stretcher. ll1 22:40 Georges Case PA is PHCP. cp 22:40 Pelon Jeffrey MD is Attending Physician. cp 22:46 Patient has correct armband on for positive identification. Bed in low position. Call ll1 light in reach. Side rails up X 1. Pulse ox on. NIBP on. 23:45 Inserted saline lock: 20 gauge in right forearm, using aseptic technique. Blood jb4 collected. 23:45 Initial lab(s) drawn, by me, sent to lab. First set of blood cultures drawn by me. jb4 09/18 00:00 Second set of blood cultures drawn by me. jb4 01:54 Chest Single View XRAY In Process Unspecified. EDMS 02:25 CT Chest For PE Angio In Process Unspecified. EDMS 02:53 Felton Rebolledo MD is Hospitalizing Provider. cp 03:42 No provider procedures requiring assistance completed. Patient admitted, IV remains in jb4 place. Administered Medications: 09/17 23:40 Drug: Tussionex Pennkinetic ER 5 ml Route: PO; jb4 09/18 00:42 Follow up: Response: No adverse reaction; Marked relief of symptoms jb4 09/17 23:55 Drug: Decadron - Dexamethasone 6 mg Route: IVP; Site: right forearm; jb4 09/18 00:42 Follow up: Response: No adverse reaction jb4 09/17 23:55 Drug: NS 0.9% 1000 ml Route: IV; Rate: 1 bolus; Site: right forearm; jb4 09/18 01:00 Follow up: Response: No adverse reaction; IV Status: Completed infusion; IV Intake: jb4 1000ml 09/17 23:55 Drug: Albuterol HFA Inhaler 2 puffs Route: Inhalation; jb4 09/18 00:42 Follow up: Response: No adverse reaction; Marked relief of symptoms jb4 03:17 Drug: Rocephin - (cefTRIAXone) 1 grams {Note: administered IVP per pharmacy protocol.} jb4 Route: IVPB; Infused Over: 30 mins; Site: right antecubital; 03:20 Follow up: Response: No adverse reaction; IV Status: Completed infusion; IV Intake: [id number] 03:20 Drug: Zithromax 500 mg Route: IVPB; Infused Over: 1 hrs; Site: right forearm; jb4 03:48 Follow up: Response: No adverse reaction; IV Status: Infusion continued upon admission jb4 03:31 Drug: Tylenol 1000 mg Route: PO; jb4 03:48 Follow up: Response: No adverse reaction jb4 Intake: 01:00 IV: 1000ml; Total: 1000ml. jb4 03:20 IV: 10ml; Total: 1010ml. jb4 Outcome: 02:54 Decision to Hospitalize by Provider. cp 03:47 Admitted to [facility] accompanied by tech, via wheelchair, room 416, with oxygen, with 4 chart, Report called to SANDRA Romano 03:47 Condition: stable 03:47 Discharge instructions given to patient, Instructed on the need for admit, Demonstrated understanding of instructions. 04:23 Patient left the ED. jb4 Signatures: Dispatcher [employer] EDMS Georges Case PA PA cp Ogletree, Danielle do Bryson, James RN RN jb4 Samm Yates RN RN ll1 Corrections: (The following items were deleted from the chart) 04:22 04:21 Reassessment: PT transferred upstairs. IV site converted to saline lock, flushes jb4 with ease, good blood return noted. jb4
--- NOTE | 2019-09-19 02:54 | EDPHYS ---
Physician Documentation [facility] Name: Peter Adams Age: 64 yrs Sex: Male : 1955 Arrival Date: 09/18/2019 Time: 22:27 Bed 7 Private MD: Julius [facility] ED Physician Pelon Jeffrey HPI: 09/17 22:50 This 64 yrs old Male presents to ER via Ambulatory with complaints of cp Shortness Of Breath, COVID 19 +. 22:50 The patient has shortness of breath at rest. Onset: The symptoms/episode began/occurred cp 1 week(s) ago. 22:50 Duration: The symptoms are continuous, and are steadily getting worse. cp 22:50 Associated signs and symptoms: Pertinent positives: non-productive cough, Pertinent cp negatives: chest pain, diaphoresis, hemoptysis. Historical: - Allergies: 22:38 GABAPENTIN; ll1 22:38 morphine (N/V); ll1 22:38 Tetanus Vaccines \\T\\ Toxoid; ll1 - PMHx: 22:38 Hypertension; ll1 - PSHx: 22:38 Tonsillectomy; throat polyps; Vasectomy; ll1 - Social history:: Smoking status: Patient denies any tobacco usage or history of. Patient/guardian denies using IV drugs. ROS: 23:00 Constitutional: Negative for chills, fever, poor PO intake. cp 23:00 Eyes: Negative for injury, pain, redness, and discharge. cp 23:00 ENT: Negative for drainage from ear(s), ear pain, sore throat, difficulty swallowing, difficulty handling secretions. 23:00 Neck: Negative for stiffness. 23:00 Cardiovascular: Negative for chest pain, edema, palpitations. 23:00 Respiratory: Positive for cough, "sounds productive", shortness of breath. 23:00 Abdomen/GI: Negative for abdominal pain, nausea, vomiting, and diarrhea, constipation. 23:00 Back: Negative for radiated pain. 23:00 Skin: Negative for rash. 23:00 Neuro: Negative for altered mental status, headache, syncope, weakness. 23:00 All other systems are negative. Exam: 23:05 Constitutional: The patient appears in no acute distress, alert, awake, cp non-diaphoretic, non-toxic, well developed, well nourished, obese. 23:05 Head/Face: Normocephalic, atraumatic. 09/18 00:30 ECG was reviewed by the Attending Physician. Vital Signs: 09/17 22:37 Pulse 98; Resp 26; Temp 99.6; Pulse Ox 89% ; Pain 10/10; ll1 22:45 BP 158 / 85; ll1 23:30 BP 148 / 72; Pulse 90; Resp 24; Pulse Ox 96% on 2 lpm NC; jb4 09/18 00:30 BP 142 / 73; Pulse 87; Resp 25; Pulse Ox 92% on 2 lpm NC; jb4 01:15 BP 122 / 76; Pulse 91; Resp 25; Pulse Ox 95% on 2 lpm NC; jb4 01:45 BP 128 / 68; Pulse 88; Resp 20; Pulse Ox 92% on 2 lpm NC; jb4 02:45 BP 130 / 71; Pulse 77; Resp 21; Pulse Ox 93% on 2 lpm NC; jb4 03:15 BP 147 / 82; Pulse 89; Resp 17; Temp 100.9(O); Pulse Ox 95% on 2 lpm NC; jb4 04:00 BP 127 / 76; Pulse 76; Resp 16; Pulse Ox 94% on 2 lpm NC; jb4 04:23 Temp 99.8(O); jb4 MDM: 09/17 22:48 Patient medically screened. 09/18 02:35 Test interpretation: by ED physician or midlevel provider: chest xray negative for cp focal pneumonia. 02:52 Data reviewed: vital signs, nurses notes, lab test result(s), EKG, radiologic studies, cp plain films, I have discussed the patient's presentation/case with the attending Emergency Department Physician; and as a result, I will admit patient, administer antibiotics Rocephin, Zithromax. 09/17 23:19 Order name: Basic Metabolic Panel; Complete Time: 01:13 cp 09/18 01:13 Interpretation: Normal except: K 3.1; BUN 19; GFR 65; CA 8.3. cp 09/17 23:19 Order name: CBC with Diff; Complete Time: 00:54 cp 09/18 00:54 Interpretation: Normal except: MN% 13.4. cp 09/17 23:19 Order name: LFT's; Complete Time: 01:13 cp 09/18 01:13 Interpretation: Normal except: AST 70; ALT 111; ALB 2.9; GLOB 4.5; A/G 0.6. 09/17 23:19 Order name: Magnesium; Complete Time: 01:13 09/17 23:19 Order name: NT PRO-BNP; Complete Time: 01:13 09/17 23:19 Order name: PT-INR; Complete Time: 01:13 09/17 23:19 Order name: Troponin (emerg Dept Use Only); Complete Time: 01:13 cp 09/17 23:19 Order name: Lactate; Complete Time: 01:13 cp 09/17 23:19 Order name: Procalcitonin; Complete Time: 01:25 cp 09/18 01:26 Interpretation: Reviewed. 09/17 23:19 Order name: D-Dimer; Complete Time: 01:13 09/18 01:14 Interpretation: Abnormal: D-DIMER 509. 09/17 23:19 Order name: Blood Culture Adult (2) 09/17 23:19 Order name: ABG; Complete Time: 00:54 09/18 00:55 Interpretation: Normal except: ABGPH 7.51; ABGPCO2 31.2; ABGPO2 70.4; URNB0IE 93.6. 09/17 23:42 Order name: Chest Single View XRAY 2 09/17 23:19 Order name: EKG; Complete Time: 23:19 09/17 23:19 Order name: Cardiac monitoring; Complete Time: 00:05 09/17 23:19 Order name: EKG - Nurse/Tech; Complete Time: 00:26 09/17 23:19 Order name: IV Saline Lock; Complete Time: 00:05 09/17 23:19 Order name: Labs collected and sent; Complete Time: 00:05 09/17 23:19 Order name: O2 Per Protocol; Complete Time: 00:05 09/18 01:15 Order name: CT Chest For PE Angio 09/18 03:29 Order name: CONS Physician Consult [facility] 09/18 03:29 Order name: Heart Healthy [facility] 09/17 23:19 Order name: O2 Sat Monitoring; Complete Time: 00:05 EC:30 Rate is 87 beats/min. Rhythm is regular. CO interval is normal. QRS interval is normal. cp QT interval is normal. T waves are Inverted in lead aVR. Interpreted by me. Reviewed by me. Administered Medications: 09/17 23:40 Drug: Tussionex Pennkinetic ER 5 ml Route: PO; 4 09/18 00:42 Follow up: Response: No adverse reaction; Marked relief of symptoms [facility] 09/17 23:55 Drug: Decadron - Dexamethasone 6 mg Route: IVP; Site: right forearm; 4 09/18 00:42 Follow up: Response: No adverse reaction [facility] 09/17 23:55 Drug: NS 0.9% 1000 ml Route: IV; Rate: 1 bolus; Site: right forearm; 4 09/18 01:00 Follow up: Response: No adverse reaction; IV Status: Completed infusion; IV Intake: jb4 1000ml 09/17 23:55 Drug: Albuterol HFA Inhaler 2 puffs Route: Inhalation; [facility] 09/18 00:42 Follow up: Response: No adverse reaction; Marked relief of symptoms 4 03:17 Drug: Rocephin - (cefTRIAXone) 1 grams {Note: administered IVP per pharmacy protocol.} jb4 Route: IVPB; Infused Over: 30 mins; Site: right antecubital; 03:20 Follow up: Response: No adverse reaction; IV Status: Completed infusion; IV Intake: [id number] 03:20 Drug: Zithromax 500 mg Route: IVPB; Infused Over: 1 hrs; Site: right forearm; jb4 03:48 Follow up: Response: No adverse reaction; IV Status: Infusion continued upon admission jb4 03:31 Drug: Tylenol 1000 mg Route: PO; jb4 03:48 Follow up: Response: No adverse reaction jb4 Disposition: 06:16 Co-signature as Attending Physician, Pelon Jeffrey MD. mh7 Disposition: 09/19/19 02:54 Hospitalization ordered by Felton Rebolledo for Inpatient Admission. Preliminary diagnosis are Pneumonia due to other specified bacteria, Coronavirus as the cause of diseases classified elsewhere, Hypoxemia. - Bed requested for Telemetry/MedSurg (Inpatient). - Status is Inpatient Admission. jb4 - Condition is Fair. - Problem is new. - Symptoms have improved. Signatures: Dispatcher [employer] Karey Eisenberg RN RN mw Georges Case PA PA cp Jermaine Kamara RN RN jb4 Samm Yates RN RN ll1 Pelon Jeffrey MD MD mh7 Corrections: (The following items were deleted from the chart) 09/17 23:58 23:19 Chest Single View+RAD.RAD.BRZ ordered. EDMS EDMS 09/18 01:13 01:13 Normal except: K 3.1; BUN 19; GFR 65. cp cp 03:07 02:54 Hospitalization Ordered by Felton Rebolledo MD for Inpatient Admission. Preliminary mw diagnosis is Pneumonia due to other specified bacteria; Coronavirus as the cause of diseases classified elsewhere; Hypoxemia. Bed requested for Telemetry/MedSurg (Inpatient). Status is Inpatient Admission. Condition is Fair. Problem is new. Symptoms have improved. cp 04:23 03:07 09/19/2019 02:54 Hospitalization Ordered by Felton Rebolledo MD for Inpatient jb4 Admission. Preliminary diagnosis is Pneumonia due to other specified bacteria; Coronavirus as the cause of diseases classified elsewhere; Hypoxemia. Bed requested for Telemetry/MedSurg (Inpatient). Status is Inpatient Admission. Condition is Fair. Problem is new. Symptoms have improved. mw
[2019-09-19] MEDS ORDERED: NA CHLORIDE 0.9% 250 ML ONE (03:16)
[2019-09-19] MEDS ORDERED: AZITHROMYCIN 500 MG INJ IVPB ONE (03:16)
[2019-09-19] MEDS ORDERED: CEFTRIAXONE/SWI 1gm 1 GM/10 ML SYR ONE (03:17)
[2019-09-19] MEDS ORDERED: ONDANSETRON 4 MG/2 ML VIAL IV PRN (03:23)
[2019-09-19] MEDS ORDERED: ACETAMINOPHEN 500 MG TAB PO PRN (03:23)
[2019-09-19] MEDS ORDERED: ALBUTEROL INHALER 60 PUFF/8 GM IH PRN (03:28)
--- NOTE | 2019-09-19 04:34 | P.HP ---
Certification for Inpatient Patient admitted to: Inpatient With expected LOS: >2 Midnights Patient will require the following post-hospital care: None Practitioner: I am a practitioner with admitting privileges, knowledge of patient current condition, hospital course, and medical plan of care. Services: Services provided to patient in accordance with Admission requirements found in Title 42 Section 412.3 of the Code of Federal Regulations Patient History Date of Service: 09/19/19 Reason for admission: COVID-19 pneumonia History of Present Illness: Patient is a 64-year-old gentleman who came to the hospital with shortness of breath and persistent coughing. Patient's symptoms have been gradually worsening. She has been diagnosed for about a week now. As he has got worse he decided to come to the hospital for further evaluation. In the ER patient had a CT scan which revealed diffuse ground-glass opacities consistent with COVID-19 pneumonia. Patient will be admitted to the hospital for treatment. Patient is hypoxic and is on 4 L oxygen to maintain a sat of 95%. Continue with current treatment at this time and monitor patient closely. Allergies No Known Allergies Allergy (Unverified 06/17/11 02:29) - Past Medical/Surgical History -: Hypertension -: Vasectomy -: Tonsillectomy - Family History Father Family History: Reviewed- Non-Contributory - Social History Smoking Status: Former smoker Alcohol use: No CD- Drugs: No Review of Systems 10-point ROS is otherwise unremarkable Physical Examination - Vital Signs Temperature: 99.6 F Blood Pressure: 130/85 Pulse: 85 Respirations: 18 Pulse Ox (%): 94 - Physical Exam General: Alert, In no apparent distress, Oriented x3 HEENT: Atraumatic, PERRLA, Mucous membr. moist/pink, EOMI, Sclerae nonicteric Neck: Supple, 2+ carotid pulse no bruit, No LAD, Without JVD or thyroid abnormality Respiratory: Diminished, Crackles/rales, Expiratory wheezes Cardiovascular: Regular rate/rhythm, Normal S1 S2, Systolic murmur Gastrointestinal: Normal bowel sounds, Soft and benign, Non-distended, No tenderness Musculoskeletal: No clubbing, No swelling, No tenderness Integumentary: No rashes Neurological: Normal gait, Normal speech, Normal strength at 5/5 x4 extr, Normal tone, Sensation intact, Cranial nerves 3-12 intact, Normal affect Lymphatics: No axilla or inguinal lymphadenopathy - Studies Laboratory Data (last 24 hrs) 09/18/19 23:19: Sodium 137, Potassium 3.1 L, BUN 19 H, Creatinine 1.14, Glucose 97, Magnesium 2.0, Total Bilirubin 0.3, AST 70 H, ALT 111 H, Alkaline Phosphatase 110 09/18/19 00:00: PT 12.2, INR 1.03 09/18/19 00:00: WBC 8.4, Hgb 14.6, Hct 43.0, Plt Count 237 Assessment & Plan - Problems (Diagnosis) (1) COVID-19 Current Visit: Yes Status: Acute (2) Hypoxemia Current Visit: Yes Status: Acute (3) Hypertension Current Visit: Yes Status: Acute - Plan 1. Continue with IV antibiotics 2. COVID-19 pneumonia 3. Repeat chest x-ray is symptoms are progressively worsening 4. O2 per protocol 5. Pulmonary consultation 6. Continue with albuterol inhaler therapy; IV dexamethasone; zinc and vitamin-C 7. O2 per protocol 8. Monitor LFTs 9. Repeat labs including D-dimer, ferritin, and CRP and LFTs 10. GI and DVT prophylaxis - Advance Directives Does patient have a Living Will: No Does patient have a Durable POA for Healthcare: No
[2019-09-19] MEDS ORDERED: POTASSIUM CL SA 10 MEQ TAB PO ONE (04:44)
[2019-09-19 05:56] VITALS: BMI 38.8
[2019-09-19 06:06] VITALS: O2SAT 96
--- NOTE | 2019-09-19 08:09 | EKG ---
Test Date: 2019-09-19 Test Time: 00:21:20 Snow Groomer: ROBBIE MEASUREMENT RESULTS: Intervals: Rate: 87 FL: 150 QRSD: 88 QT: 372 QTc: 447 [place]: P: 18 FL: 150 QRS: 48 T: 32 INTERPRETIVE STATEMENTS: Normal sinus rhythm Normal ECG Compared to ECG 03/14/2011 06:29:04 No significant changes Electronically Signed On 09-19-19 08:08:41 CDT by Rylan Solano
[2019-09-19] MEDS: dexAMETHasone 10 MG/ML VIAL IV SCH ×2 (08:46→09:00)
[2019-09-19] MEDS ORDERED: ASCORBIC ACID 500 MG TABLET PO SCH (09:00)
[2019-09-19] MEDS ORDERED: ENOXAPARIN 40 MG/0.4 ML SQ SCH (09:00)
[2019-09-19] MEDS ORDERED: ZINC SULFATE 220 MG CAP PO SCH (09:00)
[2019-09-19] MEDS ORDERED: CEFTRIAXONE 1 GM/NS 50 ML 1 GM/50 ML BAG IV SCH (09:00)
[2019-09-19] MEDS ORDERED: CEFTRIAXONE/SWI 1gm 1 GM/10 ML SYR IVP SCH (09:00)
[2019-09-19] MEDS ORDERED: AZITHROMYCIN IV 500 MG in NA CHLORIDE 0.9% 250 ML IVPB SCH (09:00)
[2019-09-19 11:19] LABS: Absolute Lymphocytes (CBC) 0.8 K/uL (0.7-4.9); Basophils % 0.4 % (0-1.3); Hematocrit 42.1 % (39.6-49.0); Lymphocytes % 12.2 % (15.3-44.8); MPV 9.2 fL (7.6-11.3); RBC Red Blood Cell Count 5.02 M/uL (4.33-5.43)
[2019-09-19 11:34] LABS: Ferritin 638.5 ng/mL (26-388); Magnesium 2.2 mg/dL (1.8-2.4); Phosphorus 3.1 mg/dL (2.5-4.9); Potassium 3.6 mmol/L (3.5-5.1)
[2019-09-19 12:21] VITALS: BP 128/60; TEMP 97.6
--- NOTE | 2019-09-19 12:32 | RAD REPORT ---
EXAM DESCRIPTION: RAD - Chest Single View - 09/19/2019 1:55 am CLINICAL HISTORY: covid Chest pain. COMPARISON: Chest Single View dated 09/13/2019; Chest Pa And Lat (2 Views) dated 03/16/2019; CHEST SIN GLE VIEW dated 03/14/2011; CHEST SINGLE VIEW dated 12/10/2008 FINDINGS: Portable technique limits examination quality. The lungs are underinflated resulting in vascular crowding. The heart is normal in size. No displaced fractures. IMPRESSION: Underinflated lungs.
--- NOTE | 2019-09-19 13:39 | P.DS ---
Admission Date: 09/19/19 (Hospitalist) Discharge Date: 09/19/19 Disposition: ROUTINE DISCHARGE Discharge Condition: GOOD Reason for Admission: COVID-19 pneumonia Brief History of Present Illness: Patient is 64 years of age admitted with a cough shortness of breath he is positive for juarez virus animal infiltrate on the CT scan Hospital Course: Did well treated with steroids at time of discharge he was alert oriented responsive cooperative saturations 95% vital signs all stable discharged home on steroids and and has steroid inhaler follow with me in 2 weeks physical examination deferred as patient is positive for a juarez virus Vital Signs/Physical Exam: Temp Pulse Resp BP Pulse Ox 97.6 F 69 16 128/60 97 09/19/19 12:00 09/19/19 12:00 09/19/19 12:00 09/19/19 12:00 09/19/19 12:00 Laboratory Data at Discharge: WBC 6.6 K/uL (4.3-10.9) D 09/19/19 11:05 Hgb 13.9 g/dL (13.6-17.9) 09/19/19 11:05 Hct 42.1 % (39.6-49.0) 09/19/19 11:05 Plt Count 211 K/uL (152-406) 09/19/19 11:05 PT 12.2 SECONDS (9.5-12.5) 09/18/19 00:00 INR 1.03 09/18/19 00:00 Sodium 141 mmol/L (136-145) 09/19/19 11:05 Potassium 3.6 mmol/L (3.5-5.1) 09/19/19 11:05 BUN 18 mg/dL (7-18) 09/19/19 11:05 Creatinine 1.00 mg/dL (0.55-1.3) 09/19/19 11:05 Glucose 155 mg/dL (74-106) H 09/19/19 11:05 Phosphorus 3.1 mg/dL (2.5-4.9) 09/19/19 11:05 Magnesium 2.2 mg/dL (1.8-2.4) 09/19/19 11:05 Total Bilirubin 0.3 mg/dL (0.2-1.0) 09/18/19 23:19 AST 70 U/L (15-37) H 09/18/19 23:19 ALT 111 U/L (12-78) H 09/18/19 23:19 Alkaline Phosphatase 110 U/L (45-117) 09/18/19 23:19 Home Medications: Azilsartan Med/Chlorthalidone [Edarbyclor 40-25 mg Tablet] 1 tab PO DAILY 09/19/19 Fluticasone/Salmeterol [Advair 250-50 Diskus] 1 each IH BID #60 blst.w.dev 09/19/19 Metoprolol Succinate 1 tab PO DAILY 09/19/19 dexAMETHasone [Decadron] 2 mg PO BID #20 tab 09/19/19 New Medications: Fluticasone/Salmeterol [Advair 250-50 Diskus] 1 each IH BID #60 blst.w.dev dexAMETHasone [Decadron] 2 mg PO BID #20 tab Followup: Jose J Carranza MD [ACTIVE - CAN ADMIT] -
--- NOTE | 2019-09-20 09:22 | RAD REPORT ---
EXAM DESCRIPTION: CT CHEST ANGIOGRAPHY WITH IV CONTRAST CLINICAL HISTORY: Cough; SOB TECHNIQUE: Contiguous axial images obtained through the chest during angiographic phase following th e uneventful administration of IV contrast. Sagittal and coronal reformatted images were provided. NJ P reformatted images were provided. This exam was performed according to our departmental dose-optimization program, which includes autom ated exposure control, adjustment of the mA and/or kV according to patient size and/or use of iterati ve reconstruction technique. COMPARISON: No prior exams provided for comparison. FINDINGS: Diagnostic quality: There is good opacification of the pulmonary arterial tree. Motion art ifact degrades image quality and limits evaluation of segmental and subsegmental vessels. Lungs: Patchy multifocal peripheral opacities within the lungs bilaterally, most pronounced and more confluent at the lower lobes. Airways are patent. Pleura: No effusion. No pneumothorax. Heart and pericardium: The heart is enlarged. No pericardial effusion. Mediastinum and domingo: No pathologically enlarged lymph nodes. Lower neck and chest wall: Bilateral gynecomastia. Vessels: No pulmonary arterial filling defects. No thoracic aortic aneurysm. Upper abdomen: The liver is enlarged. Prior cholecystectomy. Bones: Multilevel spondylosis. No acute fracture. IMPRESSION: 1. Motion artifact degrades image quality and limits evaluation of segmental and subse gmental vessels. No central pulmonary embolic disease. 2. Multifocal infiltrates with a lower lobe predominance. Atypical pneumonia including viral infect ion may be considered. 3. Other findings as above. Electronically signed by: Luis Carlos Mensah MD 09/19/2019 2:39 AM CDT Due to temporary technical issues with the PACS/Fluency reporting system, reports are being signed by the in house radiologist without review as a courtesy to ensure prompt reporting. The interpreting r adiologist is fully responsible for the content of the report.
== END 2019-09-19 14:30 | disposition home or self-care (01) | DRG 177 ==
LOC: ER 22:23 → ERHOLD 09-19 03:25 → 4TH 09-19 03:48
PROVIDERS: ADMIT Hospitalist; ATTEND Hospitalist
PROC: 8E0ZXY6 Isolation (ICD-10-PCS; principal; 2019-09-19)
DX: U07.1 COVID-19 (principal); J12.89 Other viral pneumonia; I10 Essential (primary) hypertension; R09.02 Hypoxemia; Z87.891 Personal history of nicotine dependence
CPT/HCPCS: 36415; 71045; 71275; 80048; 80076; 82728; 82805; 83605; 83615; 83735; 83880; 84100; 84145; 84484; 85025; 85379; 85610; 87040; 93005; 94760; 96361; 96365; 96375; 99285; J0456; J0696; J1100; J1650; J7030; J7050; Q9967

== ENCOUNTER 2020-07-19 09:56 | Emergency (ER) | payer OTHER ==
--- OUTSIDE RECORDS SUMMARY | 2020-07-19 09:58 | XMS REPORT | Continuity of Care Document ---
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 11-06 [facility] Allergies, Adverse Reactions, Alerts Allergy Allergy Status Severity Reaction(s) Onset Inactive Treating Comm ents Source Name Type Date Date Clinician Gabapent Propensi Active Hives [facility] 10-27 [facility] - adverse 00:00: Medical reaction 00 Center s Tetanus Propensi Active Hives [facility] Vaccines ty to 10-27 [facility] - And adverse 00:00: Medical Toxoid reaction 00 Center s Tetanus DA Active [facility] Vacc[facility] 05-29 [place] and 00:00: d Toxoid 00 [facility] gabapent DA Active [facility] in 05-29 [place] 00:00: d 00 [facility] Tetanus Adverse Active Info Not [facility] Gabapent Adverse Active Info Not [facility] Social History Social Habit Start Date Stop Date Quantity Comments Source Sex Assigned At [facility] History [facility] - Alcohol Std Drinks Medica [facility] History [facility] - Alcohol Binge Medical [facility] ter Tobacco use and 2018-11-09 2018-11-09 Never used [facility] St Bebe kes - exposure 00:00:00 00:00:00 [facility] Alcohol intake 2018-11-09 2018-11-09 Current [facility] St [facility] es - 00:00:00 00:00:00 non-drinker of Medical nter alcohol (finding) History [facility] 2018-11-04 2018-11-[address] [facility] - Alcohol Frequency 00:00:00 00:00:00 [facility] Smoking Status Start Date Stop Date Source [facility] smoker [facility] Medications Ordered Filled Start Stop Current Ordering Indication Dosage Frequency Signature Comments Components Source Medication Medication Date Date Medication? Clinician (SIG) Name Name Zolpidem Zolpidem Yes Sandeep [address] [facility] Tartrate Tartrate 8-10 [place] at bedtime [facility] - 00:[facility]: as needed [facility] 00 [facility] ent Clinics Montelukast Montelukast Yes Sandeep [address] [address] Sodium Sodium 1-14 [place] [facility] - 00:[facility]: [facility] 00 [facility] ent [facility] spironolact Yes 25mg QD Take [address] one 9-06 by mouth [facility] - (ALDACTONE) 18:51: daily. Medi jef 25 MG 13 Center tablet ranitidine Yes 150mg Q.5D Take [address] (ZANTAC) 9-06 mg by [facility] - 150 MG 18:51: mouth 2 Medical tablet 13 (two) Center times daily. furosemide Yes 40mg QD Take [address] (LASIX) 40 9-06 by mouth [facility] - MG tablet 18:51: daily. Medica l 13 [place] candesartan Yes 32mg QD Take [address] (ATACAND) 906 by mouth [facility] - 32 MG 18:51: daily. Medical tablet 13 [place] sucralfate Yes 1g Take [address] [address] (CARAFATE) 9 by mouth 2 [place] - 1 gram 18:51: (two) Medical tablet 13 times Center daily before meals. Lansoprazol Lansoprazol Yes Sandeep [address] [facility] e e [place] [facility] Tizanidine Tizanidine Yes Sandeep TAKE [address] HCl HCl [place] TABLET BY [facility] MOUTH Memoria EVERY 12 l HOURS Outpati NEEDED ent Clinics Edarbyclor Edarbyclor Yes Sandeep [address] [facility] [address] [place] [facility] NIFEdipine NIFEdipine Yes Sandeep [address] [address] ER ER [place] on an [facility] - empty Memoria stomach l Outpsychiatric ent Clinics Eliquis Eliquis Yes Sandeep TAKE 1 [facility] [place] TABLET BY [facility] - MOUTH Memoria TWICE l DAILY Outpsychiatric ent Clinics Dexamethaso Dexamethaso Yes Sandeep TAKE [address] ne ne [place] TABLETS BY [facility] - MOUTH ONCE Memoria DAILY FOR l 4 DAYS Outpsychiatric ent Clinics Furosemide Furosemide Yes Sandeep TAKE [address] [facility] [place] TABLET BY [facility] - MOUTH ONCE Memoria DAILY l Outpsychiatric ent Clinics Potassium Potassium Yes Sandeep TAKE [address] Chloride Chloride [place] TABLET BY L [facility]kes - Abi ER Abi ER MOUTH ONCE Mem oria DAILY FOR l 30 DAYS Outpsychiatric ent Clinics Metoprolol Metoprolol Yes Sandeep [address] Succinate Succinate [place] Luke s - ER ER Memoria l Outpsychiatric ent Clinics Immunizations Ordered Filled Immunization Date Status Comments [facility] Immunization Name Name Afluria single dose Afluria single dose 2019-01-[address] [facility] 00[facility]00 [facility] Clinics Procedures This patient has no known procedures. Plan of Care Planned Activity Planned Date Details Comments Source Future Scheduled 2019-11-[address] [facility] - Test 00:00:00 (#1) [code = [facility] INFLUENZA VACCINE (#1)] Future Scheduled 2019-03-[address] [facility] - Test 00:00:00 (12+) [code = [facility] DEPRESSION SCREENING (12+)] Future Scheduled [address] [facility] - Test 00:00:00 (procedure) [code = [facility] 16663039] Future Scheduled [address] [facility] [place] [facility] - Test 00:00:00 malignant neoplasm of Medica l Center colon (procedure) [code = 086691900] Encounters Start End Encounter Admission Attending Care Care Encounter Source Date/Time Date/Time Type Type Clinicians Facility Department ID 2020-06-09 2020-06-09 [id number] 2020-05-16 2020-05-16 [facility] [id number] [facility] 2020-05-08 2020-05-08 [facility] [id number] [facility] 2020-04-24 2020-04-24 [facility] [id number] [facility] 2020-03-08 2020-03-08 [facility] [id number] [facility] 2020-02-01 2020-02-01 [facility] [id number] [facility] 2020-01-10 2020-01-10 [facility] [id number] [facility] 2020-01-08 2020-01-08 Emergency [facility] [id number] 21:47:00 23:44:00 Danna Abbasiton [id number] [place] [id number] [place] [id number] 2019-12-27 2019-12-27 [facility] [id number] [facility]00 [facility] Outpati ent Clinics 2019-11-02 2019-11-02 [facility] [id number] 08:50:00 08:50:00 [place] - Drive [facility] Outpati ent Clinics 2019-10-11 2019-10-11 [facility] [id number] 14:15:00 14:15:00 [place] [employer] s - Drive [facility] Medicine Outpati ent Clinics 2019-10-08 2019-10-08 [facility] [id number] 11:36:00 11:36:00 [place] - Drive [facility] Medicine Outpati ent Clinics 2019-10-08 2019-10-08 [facility] [id number] 09:15:00 09:15:00 [place] [employer] s - Drive [facility] Outpati ent Clinics 2019-10-05 2019-10-05 Patient Betty Rogers [id number] 00:00:00 00:00:00 Outreach Elysia Ramos [id number] [place] [id number] 2019-09-20 2019-09-20 [facility] [id number] 07:08:00 07:08:00 [place] - Drive [facility] Medicine Outpati ent Clinics 2019-09-10 2019-09-10 [facility] [id number] 14:21:00 14:21:00 [place] [employer] s - Drive [facility] Medicine Outpati ent Clinics 2019-08-04 2019-08-04 [facility] [id number] 09:30:00 09:30:00 [place] [employer] s [employer] [facility] Medicine l Medicine Outpati ent Clinics 2019-07-06 2019-07-06 [facility] [id number] 09:00:00 09:00:00 [place] [employer] s [place] [facility] l Medicine Outpati ent Clinics 2019-06-07 2019-06-07 [facility] [id number] 09:35:00 09:35:00 [place] [employer] s [place] [facility] Medicine l Medicine Outpati ent Clinics 2019-06-03 2019-06-03 [facility] [id number] 09:00:00 09:00:00 [place] [employer] [facility] [facility] l Medicine Outpati ent Clinics 2019-05-21 2019-05-21 [facility] [id number] 10:12:00 10:12:00 t [facility] s [place] [facility] [employer] [facility] Medicine Outpati ent Clinics 2019-05-14 2019-05-14 [facility] [id number] 16:37:00 16:37:00 t [employer] [employer] [facility] [place] [facility] l Medicine Outpati ent Clinics 2019-05-13 2019-05-13 [facility] [id number] 10:30:00 10:30:00 t [facility] [place] [facility] [employer] [facility] Outpati ent Clinics 2019-04-22 2019-04-22 [facility] [id number] 16:41:00 16:41:00 t [place] [employer] s [place] [facility] Outpati ent Clinics 2019-04-19 2019-04-19 [facility] [id number] 08:30:00 08:30:00 t [employer] [facility] Medicine Outpati ent Clinics 2019-03-16 2019-03-16 [facility] [id number] 13:47:00 13:47:00 t [facility] [employer] [facility] [place] [facility] l Medicine Outpati ent Clinics 2019-03-16 2019-03-16 [facility] [id number] 09:30:00 09:30:00 t [place] [employer] s [place] [facility] l Medicine Outpati ent Clinics 2019-02-08 2019-02-08 [facility] [id number] 14:00:00 14:00:00 t [place] [employer] s - KOEZY [facility] l Medicine Outpati ent Clinics 2019-01-12 2019-01-12 [facility] [id number] 14:45:00 14:45:00 t [place] [employer] s [place] [facility] [employer] [facility] Medicine l Medicine Outpati ent Clinics 2018-12-10 2018-12-10 [facility] [id number] 14:30:00 14:30:00 t [place] [employer] [facility] Medicine l Medicine Outpati ent Clinics 2018-09-28 2018-09-28 [facility] [id number] 10:15:00 10:15:00 t [employer] [facility] Medicine l Medicine Outpati ent Clinics 2018-09-11 2018-09-11 [facility] [id number] 16:00:00 16:00:00 t [facility] Outpati ent Clinics 2018-09-10 2018-09-10 [facility] [id number] 16:37:00 16:37:00 t [employer] [facility] Medicine l Medicine Outpati ent Clinics 2018-06-29 2018-06-29 [facility] [id number] 10:00:00 10:00:00 t [place] [employer] s [place] [facility] Medicine l Medicine Outpati ent Clinics 2018-04-29 2018-04-29 [facility] [id number] 10:00:00 10:00:00 t [place] [employer] s [place] [facility] Medicine l Medicine Outpati ent Clinics 2018-04-07 2018-04-07 [facility] [id number] 09:45:00 09:45:00 t [place] [employer] s [place] [facility] [employer] [facility] Medicine l Medicine Outpati ent Clinics 2018-03-27 2018-03-27 [facility] [id number] 10:42:00 10:42:00 t Urgent Urgent Care L [facility] ent [facility] 2018-03-27 2018-03-27 [facility] [id number] 09:30:00 09:30:00 t Urgent Urgent Care L [facility] ent [facility] 2018-03-25 2018-03-25 [facility] [id number] 09:45:00 09:45:00 t [facility] s - Drive [facility] Outpsychiatric ent Clinics 2017-10-08 2017-10-08 [facility] [id number] 13:00:00 13:00:00 t [facility] s - Drive [facility] ent Clinics 2017-09-23 2017-09-23 [facility] [id number] 10:00:00 10:00:00 t [place] [employer] s - Drive [facility] Outpsychiatric ent Clinics 2017-06-09 2017-06-09 [facility] [id number] 09:30:00 09:30:00 t [facility] s - KOEZY [facility] ent Clinics Results Test Description Test Time Test Comments Results Result Comments Source TISSUE EXAM 2018-11-10 Surgical Pathology 15:15:00 Report Case: [id number] Authorizing Provider: Mitch Diaz MD Collected: 11/06/2018 1536 Ordering Location: [facility] Received: 11/09/2018 0814 SERVICES Pathologist: Miriam Barajas MD Specimen: Lesion, right vocal fold leion RIGHT VOCAL CORD, LARYNGOSCOPIC EXCISION OF LESION: - VOCAL CORD POLYP - NEGATIVE FOR DYSPLASIA OR MALIGNANCY Signing Pathologist Direct Phone Line: [phone] ically signed by Miriam Barajas MD on 11/10/2018 at 3:15 [id number] neoplasm of larynx, neoplasm of uncertain behavior of respiratory organLesion tissue right vocal fold lesion Received in formalin labeled with the patient's name, accession number and "lesion right vocal fold lesion" is a 0.2 cm in greatest dimension, velazquez-white to red-brown tissue. The specimen is submitted in toto in cassette A1. KM/ew PERFORMED ELECTROLYTES 2018-11-04 13:45:00 Test Item Value Reference Range Interpretation Comme nts SODIUM (BEAKER) (test code = 381) 140 meq/L 136-145 POTASSIUM (BEAKER) (test code = 379) 4.2 meq/L 3.5-5.1 CHLORIDE (BEAKER) (test code = 382) 106 meq/L 98-107 CO2 (BEAKER) (test code = 355) 29 meq/L 22-29 BUN AND [id number] 13:45:00 Test Item Value Reference Range Interpretation Comments BLOOD UREA NITROGEN 13 mg/dL 7-21 (BEAKER) (test code = 354) CREATININE (BEAKER) 0.95 mg/dL 0.57-1.25 (test code = 358) EGFR (BEAKER) (test 81 mL/min/1.73 ESTIMA ALAINA GFR IS code = 1092) sq m NOT ACCURATE CREATININE CLEARANCE IN PREDICTING GLOMERULAR FILTRATION RATE . ESTIMATED GFR I S NOT APPLICABLE FOR DIALYSIS PATIEN TS. [id number] 13:28:00 Test Item Value Reference Range Interpretation Comments HEMOGLOBIN (BEAKER) (test code = 14.2 GM/DL 13.7-17.5 410) [id number] 15:12:00 RUN DATE: 06/04/18 [facility] - LAB *LIVE* PAGE 1 RUN TIME: 151 Specimen Inquiry RUN USER: INTERFACE PATIENT: JOHNY MORSE LOC: MARYAM Rebollar #: [id number] AGE/SX: 62/M ROOM: RE06/02/18 DR: Delroy Petersen MD : 57 BED: DIS: STATUS: [facility] TLOC: SPEC #: [id number] RECD: 06/03/18 STATUS: NICKY BANKS #: [id number] MAYKEL: 06/02/[address] [facility] [address]: Delroy Petersen MD ENTERED: 06/03/18 SP TYPE: SURG OTHR DR: Jordin [place] MD ORDERED: AB/PAS AUGUSTO/2, SURG PATH LVL /, PATH STAIN GROU COPIES TO: Jordin Madrid MD [address] [place] [address]. [address] [place] [address] Delroy Petersen MD [address] [place] [address] HISTOLOGY: TISSUE ID BLK PCS JUNE LEV [...] NOS - DISTAL ESOPHAGUS CLINICAL HISTORY HEARTBURN -R12; NAUSEA -R11.0; ABDOMINAL PAIN -R10.9 CPT CODES CPT CODE(S): 48436C5 , 80269 , 60340S9 , , , , FINAL DIAGNOSIS A. Stomach, body and antrum, biopsy: MILD CHRONIC GASTRITIS NEGATIVE FOR INTESTINAL METAPLASIA, DYSPLASIA, OR MALIGNANCY NEGATIVE FOR HELICOBACTER PYLORI ORGANISMS??? CONTINUED ON NEXT PAGE RUN DATE: 06/04/18 [facility] - LAB *LIVE* PAGE 2 RUN TIME: 1512 Specimen Inquiry RUN USER: INTERFACE S PEC #: [facility]:[id number] PATIENT: JOHNY MORSE #[id number] (Continued) FINAL DIAGNOSIS (Continued) B. Esophagus, distal, biopsy: REFLUX ESOPHAGITIS WITH MILD CHRONIC CARDITIS INTESTINAL METAPLASIA (KINGSTON'S ESOPHAGUS) NEGATIVE FOR DYSPLASIA OR MALIGNANCY GROSS DESCRIPTION A. Gastric body and antrum biopsy. Received in formalin are seven saez tissue fragments, 0.2 - 0.5 cm, all as A. B. Distal esophagus biopsy. Received in formalin are three saez tissue fragments, 0.2 - 0.4 cm, all as B. ba/nr Grossing performed at [facility] Pathology, [address] [place] [address], [address], [place] [address]. Weatherization Coordinator: Kevin Lloyd M.D. MICROSCOPIC DESCRIPTION A. Gastric [...] intestinal metaplasia (goblet cells). Signed SIGNATURE ON Brian Castillo 06/04/18 1512 END OF REPORT
[2020-07-19] MEDS ORDERED: KETOROLAC 30 MG/ML INJ ONE (12:28)
[2020-07-19] MEDS ORDERED: dexAMETHasone 10 MG/ML VIAL ONE (12:28)
--- NOTE | 2020-07-19 12:54 | ER ---
Nurse's Notes [facility] Name: Peter Adams Age: 65 yrs Sex: Male : 1955 Arrival Date: 07/19/2020 Time: 09:57 Bed 14 Private MD: Sandeep Madrid Diagnosis: Sciatica, left side Presentation: 07/19 10:23 Chief complaint: Patient states: Low back pain with leg pains and numbness for 1 month. aa5 No new trauma or falls. Coronavirus screen: Client denies travel out of the [place] in the last 14 days. At this time, the client does not indicate any symptoms associated with coronavirus-19. Ebola Screen: Patient denies travel to an Ebola-affected area in the 21 days before illness onset. Initial Sepsis Screen: Does the patient meet any 2 criteria? No. Patient's initial sepsis screen is negative. Does the patient have a suspected source of infection? Yes: Bone or joint infection. Risk Assessment: Do you want to hurt yourself or someone else? Patient reports no desire to harm self or others. Onset of symptoms was June 19, 2020. 10:23 Method Of Arrival: Ambulatory aa5 10:23 Acuity: TIAGO 3 aa5 Triage Assessment: 12:06 General: Appears. zb Historical: - Allergies: 10:26 GABAPENTIN; aa5 10:26 morphine (N/V); aa5 10:26 Tetanus Vaccines \T\ Toxoid; aa5 - PMHx: 10:26 Hypertension; aa5 - PSHx: 10:26 Tonsillectomy; throat polyps; Vasectomy; Cholecystectomy; aa5 - Immunization history:: Client reports receiving the 2nd dose of the Covid vaccine, Flu vaccine is up to date. - Social history:: Smoking status: Patient denies any tobacco usage or history of. - Family history:: not pertinent. - Hospitalizations: : No recent hospitalization is reported. Screenin:05 Abuse screen: Denies threats or abuse. Denies injuries from another. Nutritional zb screening: No deficits noted. Tuberculosis screening: No symptoms or risk factors identified. Fall Risk None identified. Assessment: 12:05 Reassessment: ECP at bedside. zb 12:17 General: Appears in no apparent distress. Behavior is calm, cooperative, appropriate zb for age. Pain: Complains of pain in low back area Pain radiates to left leg Pain currently is 5 out of 10 on a pain scale. Quality of pain is described as aching, tingling, throbbing. Neuro: Level of Consciousness is awake, alert, obeys commands, Oriented to person, place, time, situation. Cardiovascular: Patient's skin is warm and dry. Respiratory: Airway is patent Respiratory effort is even, unlabored, Respiratory pattern is regular, symmetrical. GI: Abdomen is obese. Derm: Skin is intact, is healthy with good turgor, Skin is dry, Skin is normal, Skin temperature is warm. Musculoskeletal: Circulation, motion, and sensation intact. Capillary refill < 3 seconds, in bilateral fingers. Range of motion: intact in all extremities. 13:07 Reassessment: Patient appears in no apparent distress at this time. Patient and/or zb family updated on plan of care and expected duration. Pain level reassessed. Patient is alert, oriented x 3, equal unlabored respirations, skin warm/dry/pink. pain decrease. d/c instructions given. patient ambulated out. Vital Signs: 10:23 BP 146 / 79; Pulse 77; Resp 18; Temp 98.8; Pulse Ox 97% ; Weight 117.93 kg; Height 5 aa5 ft. 7 in. (170.18 cm); Pain 10/10; 12:17 BP 128 / 75; Pulse 69; Resp 16; Pulse Ox 95% on R/A; zb 10:23 Body Mass Index 40.72 (117.93 kg, 170.18 cm) aa5 ED Course: 09:57 Patient arrived in ED. am2 09:58 Sandeep Madrid DO is Private Physician. am2 10:25 Triage completed. aa5 10:26 Arm band placed on. aa5 11:58 Leodan Maynard MD is Attending Physician. rn 11:58 Patient placed in an exam room, on a stretcher. aa5 12:03 Justyna Harley RN is Primary Nurse. zb 12:06 Patient has correct armband on for positive identification. Placed in gown. Bed in low zb position. Call light in reach. Pulse ox on. NIBP on. Door closed. Noise minimized. 13:08 No provider procedures requiring assistance completed. Patient did not have IV access zb during this emergency room visit. Administered Medications: 12:16 Drug: Decadron (dexamethasone) 10 mg Route: IM; Site: right deltoid; zb 13:07 Follow up: Response: No adverse reaction; Marked relief of symptoms; Pain is decreased zb 12:16 Drug: TORadol (ketorolac) 30 mg Route: IM; Site: right deltoid; zb 13:05 Follow up: Response: No adverse reaction; Marked relief of symptoms; Pain is decreased zb Outcome: 12:53 Discharge ordered by . rn 13:09 Discharged to home ambulatory. zb 13:09 Condition: stable 13:09 Discharge instructions given to patient, Instructed on discharge instructions, follow up and referral plans. medication usage, Demonstrated understanding of instructions, follow-up care, medications, Prescriptions given X 2. 13:09 Patient left the ED. zb Signatures: Leodan Maynard MD MD rn Calderon, Audri, RN RN aa5 Georgiana Pryor [place], RN RN zb
--- NOTE | 2020-07-19 12:54 | EDPHYS ---
Physician Documentation [facility] Name: Peter Adams Age: 65 yrs Sex: Male : 1955 Arrival Date: 07/19/2020 Time: 09:57 Bed 14 Private MD: Preeti Madridh ED Physician Leodan Maynard HPI: 07/19 12:48 This 65 yrs old Male presents to ER via Ambulatory with complaints of Low Back rn Pain, Numbness - tingling sensation to both legs. 12:48 The patient presents with pain that is chronic. The symptoms are located in the low rn back. The pain radiates to the left leg. Onset: The symptoms/episode began/occurred at an unknown time. Modifying factors: The patient symptoms are alleviated by remaining still, the patient symptoms are aggravated by any movement. Associated signs and symptoms: Pertinent positives: tingling, Pertinent negatives: fever, incontinence, urinary retention, weakness. Severity of symptoms: At their worst the symptoms were moderate, in the emergency department the symptoms are unchanged. The patient has not experienced similar symptoms in the past. 12:50 Reports chronic back pain and sciatica problems, reports acting up again over last rn couple of weeks, no direct trauma or injury. No bowel/bladder problems. Reports usually gets shot and anti-inflammatory and gets better. . Historical: - Allergies: 10:26 GABAPENTIN; aa5 10:26 morphine (N/V); aa5 10:26 Tetanus Vaccines \T\ Toxoid; aa5 - PMHx: 10:26 Hypertension; aa5 - PSHx: 10:26 Tonsillectomy; throat polyps; Vasectomy; Cholecystectomy; aa5 - Immunization history:: Client reports receiving the 2nd dose of the Covid vaccine, Flu vaccine is up to date. - Social history:: Smoking status: Patient denies any tobacco usage or history of. - Family history:: not pertinent. - Hospitalizations: : No recent hospitalization is reported. ROS: 12:50 Constitutional: Negative for fever, chills, and weight loss, Eyes: Negative for injury, rn pain, redness, and discharge, Neck: Negative for injury, pain, and swelling, Cardiovascular: Negative for chest pain, palpitations, and edema, Respiratory: Negative for shortness of breath, cough, wheezing, and pleuritic chest pain, Abdomen/GI: Negative for abdominal pain, nausea, vomiting, diarrhea, and constipation, Back: + low back pain : Negative for injury, bleeding, discharge, and swelling, MS/Extremity: Negative for injury and deformity, Skin: Negative for injury, rash, and discoloration, Neuro: Negative for headache, weakness, and seizure. Exam: 12:50 Constitutional: This is a well developed, well nourished patient who is awake, alert, rn and in no acute distress. Head/Face: Normocephalic, atraumatic. Cardiovascular: Regular rate and rhythm. No pulse deficits. Respiratory: No increased work of breathing, no retractions or nasal flaring. Abdomen/GI: Soft, non-tender Back: No spinal tenderness. No costovertebral tenderness. Full range of motion. Skin: Warm, dry with normal turgor. Normal color with no rashes, no lesions, and no evidence of cellulitis. MS/ Extremity: Pulses equal, no cyanosis. Neurovascular intact. Full, normal range of motion. Equal circumference. Neuro: Awake and alert, GCS 15, oriented to person, place, time, and situation. Cranial nerves II-XII grossly intact. Motor strength 5/5 in all extremities. Sensory grossly intact. Cerebellar exam normal. Normal gait. Vital Signs: 10:23 BP 146 / 79; Pulse 77; Resp 18; Temp 98.8; Pulse Ox 97% ; Weight 117.93 kg; Height 5 aa5 ft. 7 in. (170.18 cm); Pain 10/10; 12:17 BP 128 / 75; Pulse 69; Resp 16; Pulse Ox 95% on R/A; zb 10:23 Body Mass Index 40.72 (117.93 kg, 170.18 cm) aa5 MDM: 11:58 Patient medically screened. rn 12:50 Differential diagnosis: arthritis, strain, sciatica. Data reviewed: vital signs, nurses rn notes, and as a result, I will discharge patient. Counseling: I had a detailed discussion with the patient and/or guardian regarding: the historical points, exam findings, and any diagnostic results supporting the discharge/admit diagnosis, the need for outpatient follow up, to return to the emergency department if symptoms worsen or persist or if there are any questions or concerns that arise at home. Response to treatment: the patient's symptoms have mildly improved after treatment, and as a result, I will discharge patient. Special discussion: I discussed with the patient/guardian in detail that at this point there is no indication for admission to the hospital. It is understood, however, that if the symptoms persist or worsen the patient needs to return immediately for re-evaluation. Administered Medications: 12:16 Drug: Decadron (dexamethasone) 10 mg Route: IM; Site: right deltoid; zb 13:07 Follow up: Response: No adverse reaction; Marked relief of symptoms; Pain is decreased zb 12:16 Drug: TORadol (ketorolac) 30 mg Route: IM; Site: right deltoid; zb 13:05 Follow up: Response: No adverse reaction; Marked relief of symptoms; Pain is decreased zb Disposition: 07/19/20 12:53 Discharged to Home. Impression: Sciatica, left side. - Condition is Stable. - Discharge Instructions: Sciatica. - Prescriptions for Cyclobenzaprine 10 mg Oral Tablet - take 1 tablet by ORAL route every 8 hours As needed; 15 tablet. Medrol (Dennis) 4 mg Oral Tablets, Dose Pack - take 1 tablet by ORAL route as directed - follow package instructions; 1 packet. - Medication Reconciliation Form, Thank You Letter, Antibiotic Education, Prescription Opioid Use form. - Follow up: Private Physician; When: As needed; Reason: Recheck today's complaints, Re-evaluation by your physician. - Problem is new. - Symptoms have improved. Signatures: Leodan Maynard MD MD rn Calderon, Audri, RN RN aa5 Justyna Harley RN RN zb Corrections: (The following items were deleted from the chart) 13:09 12:53 07/19/2020 12:53 Discharged to Home. Impression: Sciatica, left side. Condition zb is Stable. Forms are Medication Reconciliation Form, Thank You Letter, Antibiotic Education, Prescription Opioid Use. Follow up: Private Physician; When: As needed; Reason: Recheck today's complaints, Re-evaluation by your physician. Problem is new. Symptoms have improved. rn
[2020-07-19 13:22] VITALS: TEMP 98.8
[2020-07-19 13:23] VITALS: BP 128/75; O2SAT 95
== END 2020-07-19 13:09 | disposition home or self-care (01) ==
LOC: ER 09:56
DX: M54.32 Sciatica, left side (principal); I10 Essential (primary) hypertension; Z88.5 Allergy status to narcotic agent; Z88.7 Allergy status to serum and vaccine; Z88.8 Allergy status to other drugs, medicaments and biological substances
CPT/HCPCS: 96372; 99283; J1100

== ENCOUNTER 2020-08-28 10:21 | Emergency (ER) | payer OTHER ==
--- OUTSIDE RECORDS SUMMARY | 2020-08-28 10:24 | XMS REPORT | Continuity of Care Document ---
:1955 Author Organization [facility] t Address [facility] Leonidas Rodríguez [address] [place] [address] Care Team Providers Name Role Phone Jen Chen Primary Care Physician Valeria BECKFORD Attending Clinician Ken FLORES, E Attending Clinician JOE Attending Clinician Unavailable Adrien YO Attending Clinician Joe MEJIA Attending Clinician JOE Admitting Clinician Unavailable Payers Payer Name Policy Type Policy Number Effective Date Expiration Date S ource Problems Condition Condition Condition Status Onset Resolution Last Treating Co mments Source Name Details Category Date Date Treatment Clinician Date 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 11-06 [facility] [...] reaction 00 [facility] [place] [facility] Vacc[facility] 05-29 [place] and 00:00: d Toxoid 00 [facility] gabapent DA Active [place] [facility] in 05-29 [place] 00:00: d 00 [facility] Tetanus Adverse Active Info Not [facility] Reaction Available [facility] Gabapent Adverse Active Info Not [facility] in Reaction Available [facility] Social History Social Habit Start Date Stop Date Quantity Comments Source Sex Assigned At [facility] St Spence kes - [facility] History [facility] Std Drinks Medica [facility] History [facility] - Alcohol Binge Medical [facility] ter Tobacco use and 2018-11-09 2018-11-[address] Bebe kes - exposure 00:00:00 00:00:00 [facility] Alcohol intake 2018-11-09 2018-11-[address] [facility] [address] [facility] es - 00:00:00 00:00:00 non-drinker of Medical nter alcohol (finding) History [facility] 2018-11-04 2018-11-[address] [facility] - Alcohol Frequency 00:00:00 00:00:00 [facility] Smoking Status Start Date Stop Date Source Never smoker [facility] Medications Ordered Filled Start Stop Current Ordering Indication Dosage Frequency Signature Comments Components Source Medication Medication Date Date Medication? Clinician (SIG) Name Name Zolpidem Zolpidem Yes Sandeep [address] Tartrate Tartrate 8-10 [place] at bedtime [facility] - 00:00: as needed [facility] 00 [facility] Montelukast Montelukast Yes Sandeep [address] [address] Sodium Sodium 1-14 [place] [facility] - 00:00: [facility] 00 [facility] ent [facility] spironolact Yes 25mg QD Take 25 mg [...] MG tablet 18:51: daily. Medica l 13 Center candesartan Yes 32mg QD Take [address] (ATACAND) 9-06 by mouth [facility] - 32 MG 18:51: daily. Medical tablet 13 Center sucralfate Yes 1g Take [address] (CARAFATE) 906 by mouth 2 [place] - 1 gram 18:51: (two) Medical tablet 13 times Center daily before meals. Lansoprazol Lansoprazol Yes Sandeep [address] e e [place] [facility] ent Clinics Tizanidine Tizanidine Yes Sandeep TAKE [address] [facility] HCl HCl [place] TABLET BY [facility]ukes - MOUTH Memoria EVERY 12 l HOURS Outpati NEEDED ent Clinics Edarbyclor Edarbyclor Yes Sandeep [address] [facility] [address] [place] [facility] NIFEdipine NIFEdipine Yes Sandeep [address] ER ER [place] on an [facility]ukes - empty Memoria stomach l [facility] ent Clinics Eliquis Eliquis Yes Sandeep TAKE [facility] [place] TABLET BY [facility] - MOUTH Memoria TWICE l DAILY [facility] Dexamethaso Dexamethaso Yes Sandeep TAKE [address] [facility] ne ne [place] TABLETS BY [facility]ukes - MOUTH ONCE Memoria DAILY FOR l 4 DAYS [facility] Furosemide Furosemide Yes Sandeep TAKE [address] [facility] [place] TABLET BY [facility] - MOUTH ONCE [facility]oria DAILY l [facility] Potassium Potassium Yes Sandeep TAKE [address] Chloride Chloride [place] TABLET BY L ukes - Abi ER Abi ER MOUTH ONCE Mem oria DAILY FOR l 30 DAYS [facility] Metoprolol Metoprolol Yes Sandeep [address] Succinate Succinate [place] Luke s - ER ER Memoria l [facility] ent Clinics Immunizations Ordered Filled Immunization Date Status Comments Sourc e Immunization Name Name Rosetta single dose Doloresuria single dose 2019-01-[address] [facility] - 00[facility]00 [facility] Procedures This patient has no known procedures. Plan of Care Planned Activity Planned Date Details Comments Source Future Scheduled 2019-11-[address] [facility] - Test 00:00:00 (#1) [code = [facility] INFLUENZA VACCINE (#1)] Future Scheduled 2019-03-[address] [facility] - Test 00:00:00 (12+) [code = [facility] DEPRESSION SCREENING (12+)] Future Scheduled [address] [facility] - Test 00:00:00 (procedure) [code = [facility] 36655871] Future Scheduled [address] [facility] [place] [facility] - Test 00:00:00 malignant neoplasm of Medica l Center colon (procedure) [code = 936393167] Encounters Start End Encounter Admission Attending Care Care Encounter Source Date/Time Date/Time Type Type Clinicians Facility Department ID 2020-06-09 2020-06-09 [facility] [id number] 2020-05-16 2020-05-16 [facility] [id number] [facility] 2020-05-08 2020-05-08 [facility] [id number] [facility] 2020-04-24 2020-04-24 [facility] [id number] [facility] 2020-03-08 2020-03-08 [facility] [id number] [facility] 2020-02-01 2020-02-01 [facility] [id number] [facility] 2020-01-10 2020-01-10 [facility] [id number] [facility] 2020-01-08 2020-01-08 Emergency DENISE Shaw [id number] 21:47:00 23:44:00 Danna Abbasiton [id number] [place] [id number] [place] [id number] 2019-12-27 2019-12-27 Outpatient [facility] [id number] [facility] 2019-11-02 2019-11-02 [facility] [id number] 08:50:00 08:50:[address] Luke s - Drive [facility] Medicine Outpati ent Clinics 2019-10-11 2019-10-11 [facility] [id number] 14:15:00 14:15:[address] Luke s - Drive [facility] Medicine Medicine Outpati ent Clinics 2019-10-08 2019-10-08 [facility] [id number] 11:36:00 11:36:[address] Luke s - Drive [facility] Medicine Medicine Outpati ent Clinics 2019-10-08 2019-10-08 [facility] [id number] 09:15:00 09:15:[address] Luke s - Drive [facility] Medicine Medicine Outpati ent Clinics 2019-10-05 2019-10-05 Patient Betty Rogers [id number] 00:00:00 00:00:00 Outreach Elysia Ramos [id number] Katelynn [id number] 2019-09-20 2019-09-20 [facility] [id number] 07:08:00 07:08:[address] Luke s - Drive [facility] Medicine Outpati ent Clinics 2019-09-10 2019-09-10 [facility] [id number] 14:21:00 14:21:[address] Luke s - Drive [facility] Out[facility] ent Clinics 2019-08-04 2019-08-04 [facility] [id number] 09:30:00 09:30:[address] [employer] [facility] l Medicine Outpati ent Clinics 2019-07-06 2019-07-06 [facility] [id number] 09:00:00 09:00:00 t Vizibility s [employer] [facility] Medicine Outpati ent Clinics 2019-06-07 2019-06-07 [facility] [id number] 09:35:00 09:35:00 t Dudley [employer] [facility] l Medicine Outpati ent Clinics 2019-06-03 2019-06-03 [facility] [id number] 09:00:00 09:00:00 t Vizibility s [employer] [facility] Medicine Outpati ent Clinics 2019-05-21 2019-05-21 [facility] [id number] 10:12:00 10:12:00 t Vizibility s [employer] [facility] Medicine l Medicine Outpati ent Clinics 2019-05-14 2019-05-14 [facility] [id number] 16:37:00 16:37:00 t Vizibility s [employer] [facility] l Medicine Outpati ent Clinics 2019-05-13 2019-05-13 [facility] [id number] 10:30:00 10:30:00 t Vizibility s [employer] [facility] Medicine Medicine Outpati ent Clinics 2019-04-22 2019-04-22 [facility] [id number] 16:41:00 16:41:00 t Vizibility s [employer] [facility] Medicine Outpati ent Clinics 2019-04-19 2019-04-19 [facility] [id number] 08:30:00 08:30:00 t Vizibility s [employer] [facility] Medicine l Medicine Outpati ent Clinics 2019-03-16 2019-03-16 [facility] [id number] 13:47:00 13:47:00 t Dudley [employer] s - Drive [facility] Medicine Outpati ent Clinics 2019-03-16 2019-03-16 [facility] [id number] 09:30:00 09:30:00 t Dudley [employer] s - Drive [facility] Outpati ent Clinics 2019-02-08 2019-02-08 [facility] [id number] 14:00:00 14:00:00 t Dudley [employer] s - Drive [facility] Outpati ent Clinics 2019-01-12 2019-01-12 [facility] [id number] 14:45:00 14:45:00 t Dudley [employer] [facility] Outpati ent Clinics 2018-12-10 2018-12-10 [facility] [id number] 14:30:00 14:30:00 t Vizibility s - [employer] [facility] Outpati ent Clinics 2018-10-14 2018-10-14 Office Adrien [facility] [id number] 08:46:19 09:29:51 Visit Bridgette AMBULATOR [id number] Y [id number] 2018-10-05 2018-10-05 Office Joe [facility] [id number] 10:33:46 12:48:03 Visit Julina AMBULATOR [id number] Y [id number] 2018-09-28 2018-09-28 [facility] [id number] 10:15:00 10:15:00 t Vizibility s - Drive [facility] Outpati ent Clinics 2018-09-11 2018-09-11 [facility] [id number] 16:00:00 16:00:00 t Urgent Urgent Care L [facility] Outpati ent Clinics 2018-09-10 2018-09-10 [facility] [id number] 16:37:00 16:37:00 t Dudley Truliake s - Drive [facility] Medicine Medicine Outpati ent Clinics 2018-06-29 2018-06-29 [facility] [id number] 10:00:00 10:00:00 t Neven [employer] [facility] Medicine Medicine Outpati ent Clinics 2018-04-29 2018-04-29 [facility] [id number] 10:00:00 10:00:[address] [facility] Medicine Outpati ent Clinics 2018-04-07 2018-04-07 [facility] [id number] 09:45:00 09:45:[address] [facility] Medicine Outpati ent Clinics 2018-03-27 2018-03-27 [facility] [id number] 10:42:00 10:42:00 t Urgent Urgent Care L [facility] - Care [facility] Outpati ent Clinics 2018-03-27 2018-03-27 [facility] [id number] 09:30:00 09:30:00 t Urgent Urgent Care [facility] - Care Clinic [facility] l Outpati ent Clinics 2018-03-25 2018-03-25 [facility] [id number] 09:45:00 09:45:[address] [facility] Medicine Outpati ent Clinics 2017-10-08 2017-10-08 [facility] [id number] 13:00:00 13:00:00 t Neven [employer] [facility] Medicine Medicine Outpati ent Clinics 2017-09-23 2017-09-23 [facility] [id number] 10:00:00 10:00:[address] [facility] Medicine Outpati ent Clinics 2017-06-09 2017-06-09 [facility] [id number] 09:30:00 09:30:[address] [facility] Medicine Outpati ent Clinics Results Test Description Test Time Test Comments Results Result Comments Source TISSUE EXAM 2018-11-10 Surgical Pathology 15:15:00 Report Case: [id number] Authorizing Provider: Mitch Diaz MD Collected: 11/06/2018 1536 Ordering Location: [facility] PERIOPERATIVE Received: 11/09/2018 0814 SERVICES Pathologist: Miriam Barajas MD Specimen: Lesion, right vocal fold leion RIGHT VOCAL CORD, LARYNGOSCOPIC EXCISION OF LESION: - VOCAL CORD POLYP - NEGATIVE FOR DYSPLASIA OR MALIGNANCY Signing Pathologist Direct Phone Line: [phone] ically signed by Miriam Barajas MD on 11/10/2018 at 3:15 [id number] neoplasm of larynx, neoplasm of uncertain behavior of respiratory organLesion tissue right vocal fold lesion Received in formalin labeled with the patient's name, accession number and "lesion right vocal fold lesion" is a 0.2 cm in greatest dimension, velazquez-white to red-brown tissue. The specimen is submitted in toto in cassette A1. KM/ew PERFORMED BUN AND CREATININE 2018-11-04 13:45:00 Test Item Value Reference Range Interpretation Comme nts BLOOD UREA NITROGEN 13 mg/dL 7-21 (BEAKER) (test code = 354) CREATININE (BEAKER) (test 0.95 mg/dL 0.57-1.25 code = 358) EGFR (BEAKER) (test code = 81 mL/min/1.73 sq m ESTIMATED GFR IS NOT 1092) ACCURATE CRE ATININE CLEARANCE IN [place] EDICTING GLOMERULAR FILT RATION RATE. ESTIMATED GFR IS NOT APPLICABLE FOR DIALYSIS PATIENTS. [id number] 13:45:00 Test Item Value Reference Range Interpretation Comments SODIUM (BEAKER) (test code = 381) 140 meq/L 136-145 POTASSIUM (BEAKER) (test code = 4.2 meq/L 3.5-5.1 379) CHLORIDE (BEAKER) (test code = 382) 106 meq/L 98-107 CO2 (BEAKER) (test code = 355) 29 meq/L 22-29 [id number] 13:28:00 Test Item Value Reference Range Interpretation Comments HEMOGLOBIN (BEAKER) (test code = 14.2 GM/DL 13.7-17.5 410) [id number] 15:12:00 RUN DATE: 06/04/18 [facility] [place] - LAB *LIVE* PAGE 1 RUN TIME: 151 Specimen Inquiry RUN USER: INTERFACE PATIENT: JOHNY MORSE LOC: MARYAM U #: [id number] AGE/SX: 62/M ROOM: RE06/02/18REG DR: Delroy Petersen MD : 57 BED: DIS: STATUS: [facility] TLOC: SPEC #: [id number]:[id number] RECD: 06/03/18 STATUS: NICKY REQ #: [id number] MAYKEL: 06/02/[address]: Delroy Petersen MD ENTERED: 06/03/18 SP TYPE: SURG OTHR DR: Jordin [place] MD ORDERED: AB/PAS AUGUSTO/2, SURG PATH LVL 4/, PATH STAIN GROU COPIES TO: Jordin Madrid MD [address] [place] [address]. [address] [place] [id number] Delroy Petersen MD [address] [place], [place] [address] HISTOLOGY: TISSUE ID BLK PCS JUNE LEV [...] ABDOMINAL PAIN -R10.9 CPT CODES CPT CODE(S): 46686L2 , 73224 , 71861A0 , , , , FINAL DIAGNOSIS A. Stomach, body and antrum, biopsy: MILD CHRONIC GASTRITIS NEGATIVE FOR INTESTINAL METAPLASIA, DYSPLASIA, OR MALIGNANCY NEGATIVE FOR HELICOBACTER PYLORI ORGANISMS??? CONTINUED ON NEXT PAGE RUN DATE: 06/04/18 [facility] [place] - LAB *LIVE* PAGE 2 RUN TIME: 1512 Specimen Inquiry RUN USER: INTERFACE S PEC #: [facility]:[id number] PATIENT: JOHNY MORSE #[id number] (Continued) FINAL DIAGNOSIS (Continued) B. Esophagus, distal, [...] all as B. ba/nr Grossing performed at [facility] Pathology, [address] [place] [address], [address], [place] [address]. Molder Operator: Kevin Lloyd M.D. MICROSCOPIC DESCRIPTION A. Gastric [...]
[2020-08-28 11:39] LABS: Urine Blood Negative (Negative); Urine Glucose Negative (Negative); Urine Protein Negative (Negative); Urine Specific Gravity 1.015 (1.005-1.030)
[2020-08-28] MEDS ORDERED: NA CHLORIDE 0.9% 1,000 ML ONE (11:41)
[2020-08-28] MEDS ORDERED: ONDANSETRON 4 MG/2 ML VIAL ONE (11:41)
[2020-08-28] MEDS ORDERED: MORPHINE 4 MG/ML SYR ONE (11:41)
[2020-08-28 11:45] LABS: Basophils % 0.7 % (0-1.3); Hematocrit 45.7 % (39.6-49.0); Lymphocytes % 46.7 % (15.3-44.8); MPV 8.9 fL (7.6-11.3); RBC Red Blood Cell Count 5.49 M/uL (4.33-5.43)
--- NOTE | 2020-08-28 11:54 | RAD REPORT ---
EXAM DESCRIPTION: CTAbdomen Pelvis W Contrast - 08/28/2020 11:45 am CLINICAL HISTORY: Abdominal pain. ABD PAIN COMPARISON: CT ABD PELVIS W CONTRAST dated 09/02/2012; Thorax W/ Con dated 03/16/2020 TECHNIQUE: Biphasic CT imaging of the abdomen and pelvis was performed with 100 ml non-ionic IV cont rast. All CT scans are performed using dose optimization technique as appropriate and may include automated exposure control or mA/KV adjustment according to patient size. FINDINGS: Emphysematous lung bases. The liver, spleen, pancreas, adrenal glands and kidneys are within normal limits. Cholecystectomy cli ps. No bowel obstruction, free air, free fluid or abscess. Large duodenal diverticula are noted along the C-loop. The appendix is normal. No evidence of significant lymphadenopathy. Prostate gland is mildl y prominent and projects into the bladder base. Mild spondylosis of the lumbar spine is present, most notable at L2-3. IMPRESSION: No acute intra-abdominal or pelvic finding.
[2020-08-28 12:06] LABS: Albumin 3.6 g/dL (3.4-5.0); Bilirubin Direct 0.1 mg/dL (0-0.2); Bilirubin Total 0.5 mg/dL (0.2-1.0); Potassium 3.3 mmol/L (3.5-5.1); Protein, Total 7.6 g/dL (6.4-8.2)
[2020-08-28 12:57] LABS: Urine Bacteria NONE SEEN /HPF (NONE SEEN); Urine RBC NONE SEEN /HPF (NONE SEEN)
--- NOTE | 2020-08-28 13:00 | ER ---
Nurse's Notes [facility] Name: Peter Adams Age: 65 yrs Sex: Male : 1955 Arrival Date: 08/28/2020 Time: 10:24 Bed 24 [facility] MD: Diagnosis: Low back pain Presentation: 08/28 10:33 Chief complaint: Patient states: "I am having pain in my waist area and the bottom part jd3 of my stomach. I feel a heavy weight that comes to my back.". Coronavirus screen: At this time, the client does not indicate any symptoms associated with coronavirus-19. Ebola Screen: Patient negative for fever greater than or equal to 101.5 degrees Fahrenheit, and additional compatible Ebola Virus Disease symptoms. Initial Sepsis Screen: Does the patient meet any 2 criteria? No. Patient's initial sepsis screen is negative. Does the patient have a suspected source of infection? No. Patient's initial sepsis screen is negative. Risk Assessment: Do you want to hurt yourself or someone else? Patient reports no desire to harm self or others. Onset of symptoms was August 26, 2020. 10:33 Method Of Arrival: Ambulatory jd3 10:33 Acuity: TIAGO 3 jd3 Historical: - Allergies: 10:39 GABAPENTIN; jd3 10:39 morphine (N/V); jd3 10:39 Tetanus Vaccines \\T\\ Toxoid; jd3 - PMHx: 10:39 Hypertension; jd3 - PSHx: 10:39 Tonsillectomy; throat polyps; Vasectomy; Cholecystectomy; jd3 - Immunization history:: Adult Immunizations unknown, Client reports receiving the 2nd dose of the Covid vaccine. - Social history:: Smoking status: Patient denies any tobacco usage or history of. Screenin:41 Abuse screen: Denies threats or abuse. Nutritional screening: No deficits noted. vg1 Tuberculosis screening: No symptoms or risk factors identified. Fall Risk No fall in past 12 months (0 pts). No secondary diagnosis (0 pts). IV access (20 points). Ambulatory Aid- None/Bed Rest/Nurse Assist (0 pts). Gait- Normal/Bed Rest/Wheelchair (0 pts) Mental Status- Oriented to own ability (0 pts). Total Jerez Fall Scale indicates No Risk (0-24 pts). Assessment: 11:20 General: Appears in no apparent distress. uncomfortable, Behavior is calm, cooperative. vg1 Pain: Complains of pain in right lower quadrant and left lower quadrant and lower back Pain currently is 10 out of 10 on a pain scale. Noted to be grimacing, guarding. Neuro: Level of Consciousness is awake, alert, obeys commands, Oriented to person, place, time, situation. Cardiovascular: Patient's skin is warm and dry. Respiratory: Airway is patent Respiratory effort is even, unlabored. GI: Bowel sounds present X 4 quads. Abdomen is tender to palpation in right lower quadrant and left lower quadrant. : Denies burning with urination, urinary frequency. EENT: No signs and/or symptoms were reported regarding the EENT system. Derm: Skin is intact, is healthy with good turgor. Musculoskeletal: Circulation, motion, and sensation intact. 12:52 Reassessment: Patient appears in no apparent distress at this time. Patient and/or vg1 family updated on plan of care and expected duration. Pain level reassessed. Patient is alert, oriented x 3, equal unlabored respirations, skin warm/dry/pink. States pain has subsided to 5/10. Provider notified. Vital Signs: 10:39 BP 158 / 79; Pulse 67; Resp 17 S; Temp 97.5(TE); Pulse Ox 99% on R/A; Weight 122.47 kg jd3 (R); Height 5 ft. 8 in. (172.72 cm) (R); Pain 8/10; 11:41 BP 152 / 75; Pulse 66; Resp 18; Pulse Ox 100% ; vg1 12:00 BP 126 / 73; Pulse 60; Resp 16; Pulse Ox 96% ; vg1 13:00 BP 121 / 51; Pulse 60; Resp 16; Pulse Ox 100% ; vg1 10:39 Body Mass Index 41.05 (122.47 kg, 172.72 cm) jd3 ED Course: 10:24 Patient arrived in ED. wm 10:36 Triage completed. jd3 10:40 Arm band placed on. jd3 11:02 Peyton Crisostomo [facility]-C [facility]. kb 11:02 Leodan Maynard MD is Attending Physician. kb 11:05 Betty Tyler, SANDRA is Primary Nurse. vg1 11:28 Initial lab(s) drawn, by me, sent to lab. Inserted saline lock: 20 gauge in right vg1 antecubital area, using aseptic technique. Blood collected. 11:41 Patient has correct armband on for positive identification. Bed in low position. Call vg1 light in reach. Side rails up X 1. 11:45 CT Abd/Pelvis - IV Contrast Only In Process Unspecified. EDMS 13:15 No provider procedures requiring assistance completed. IV discontinued, intact, vg1 bleeding controlled, No redness/swelling at site. Pressure dressing applied. Administered Medications: 11:31 Drug: Zofran (Ondansetron) 4 mg Route: IVP; Site: right antecubital; vg1 12:00 Follow up: Response: No adverse reaction vg1 11:33 Drug: morphine 4 mg Route: IVP; Site: right antecubital; vg1 12:00 Follow up: Response: No adverse reaction; Pain is decreased vg1 11:54 Drug: NS 0.9% 1000 ml Route: IV; Rate: 1000 ml; Site: right antecubital; vg1 13:14 Follow up: IV Status: Completed infusion; IV Intake: 1000ml vg1 Intake: 13:14 IV: 1000ml; Total: 1000ml. vg1 Outcome: 13:00 Discharge ordered by . malik 13:15 Discharged to home ambulatory. vg1 13:15 Condition: stable 13:15 Discharge instructions given to patient, Instructed on discharge instructions, follow up and referral plans. medication usage, Demonstrated understanding of instructions, follow-up care, medications, Prescriptions given X 2. 13:16 Patient left the ED. vg1 Signatures: Dispatcher [employer] EDMS Peyton Crisostomo, MINDA CLEMENT-Laci Mtz RN RN jBetty Torres RN RN vg1 Arlet Woods
--- NOTE | 2020-08-28 13:00 | EDPHYS ---
Physician Documentation [facility] Name: Peter Adams Age: 65 yrs Sex: Male : 1955 Arrival Date: 08/28/2020 Time: 10:24 Bed 24 Private MD: ED Physician Leodan Maynard HPI: 08/28 17:28 This 65 yrs old Male presents to ER via Ambulatory with complaints of kb Abdominal Pain, Back Pain. 17:28 The patient has not recently seen a physician. kb 17:28 The patient presents with pain that is acute. The symptoms are located in the low back. kb The pain radiates to the abdomen. The problem was sustained without known cause. Onset: The symptoms/episode began/occurred 3 week(s) ago. Modifying factors: The patient symptoms are alleviated by nothing, the patient symptoms are aggravated by any movement. Associated signs and symptoms: Pertinent positives: abdominal pain. Severity of symptoms: At their worst the symptoms were moderate, in the emergency department the symptoms are unchanged. The patient has not experienced similar symptoms in the past. Pt reports low back pain that started 3 weeks ago. States he has been seen for this and has imaging scheduled for 08/31/20, but the pain hasn't gotten any better so he came in today. Historical: - Allergies: 10:39 GABAPENTIN; jd3 10:39 morphine (N/V); jd3 10:39 Tetanus Vaccines \T\ Toxoid; jd3 - PMHx: 10:39 Hypertension; jd3 - PSHx: 10:39 Tonsillectomy; throat polyps; Vasectomy; Cholecystectomy; jd3 - Immunization history:: Adult Immunizations unknown, Client reports receiving the 2nd dose of the Covid vaccine. - Social history:: Smoking status: Patient denies any tobacco usage or history of. ROS: 17:27 Constitutional: Negative for fever, chills, and weight loss. kb 17:27 Abdomen/GI: Positive for abdominal pain, Negative for nausea, vomiting, and diarrhea. 17:27 Back: Positive for pain at rest, pain with movement. 17:27 All other systems are negative. Exam: 17:27 Constitutional: This is a well developed, well nourished patient who is awake, alert, kb and in no acute distress. Head/Face: Normocephalic, atraumatic. ENT: Moist Mucous membranes Cardiovascular: Regular rate and rhythm with a normal S1 and S2. No gallops, murmurs, or rubs. No pulse deficits. Respiratory: Respirations even and unlabored. No increased work of breathing, no retractions or nasal flaring. Skin: Warm, dry with normal turgor. Normal color. MS/ Extremity: Pulses equal, no cyanosis. Neurovascular intact. Full, normal range of motion. Neuro: Awake and alert, GCS 15, oriented to person, place, time, and situation. Moves all extremities. Normal gait. Psych: Awake, alert, with orientation to person, place and time. Behavior, mood, and affect are within normal limits. 17:27 Abdomen/GI: Inspection: abdomen appears normal, Bowel sounds: normal, in all quadrants, Palpation: soft, in all quadrants, mild abdominal tenderness, in all quadrants. 17:27 Back: pain, that is moderate, of the low back area, ROM is painful, normal spinal alignment noted. Vital Signs: 10:39 BP 158 / 79; Pulse 67; Resp 17 S; Temp 97.5(TE); Pulse Ox 99% on R/A; Weight 122.47 kg jd3 (R); Height 5 ft. 8 in. (172.72 cm) (R); Pain 8/10; 11:41 BP 152 / 75; Pulse 66; Resp 18; Pulse Ox 100% ; vg1 12:00 BP 126 / 73; Pulse 60; Resp 16; Pulse Ox 96% ; vg1 13:00 BP 121 / 51; Pulse 60; Resp 16; Pulse Ox 100% ; vg1 10:39 Body Mass Index 41.05 (122.47 kg, 172.72 cm) jd3 MDM: 11:03 Patient medically screened. kb 17:27 Data reviewed: vital signs, nurses notes. Data interpreted: Pulse oximetry: on room air kb is 100 %. Interpretation: normal. Counseling: I had a detailed discussion with the patient and/or guardian regarding: the historical points, exam findings, and any diagnostic results supporting the discharge/admit diagnosis, lab results, radiology results, the need for outpatient follow up, a family practitioner, to return to the emergency department if symptoms worsen or persist or if there are any questions or concerns that arise at home. 08/28 11:03 Order name: Basic Metabolic Panel; Complete Time: 12:17 kb 08/28 11:03 Order name: CBC with Diff; Complete Time: 11:51 kb 08/28 11:03 Order name: Hepatic Function; Complete Time: 12:17 kb 08/28 11:03 Order name: Lipase; Complete Time: 12:17 kb 08/28 11:03 Order name: Urine Microscopic Only; Complete Time: 12:59 kb 08/28 11:39 Order name: Urine Dipstick-Ancillary; Complete Time: 11:44 EDMS 08/28 11:03 Order name: IV Saline Lock; Complete Time: 11:35 kb 08/28 11:03 Order name: Labs collected and sent; Complete Time: 11:35 kb 08/28 11:15 Order name: CT Abd/Pelvis - IV Contrast Only; Complete Time: 12:01 kb 08/28 12:40 Order name: CREATININE WHOLE BLOOD; Complete Time: 12:43 EDMS 08/28 11:03 Order name: Urine Dipstick-Ancillary (obtain specimen); Complete Time: 11:39 kb Administered Medications: 11:31 Drug: Zofran (Ondansetron) 4 mg Route: IVP; Site: right antecubital; vg1 12:00 Follow up: Response: No adverse reaction vg1 11:33 Drug: morphine 4 mg Route: IVP; Site: right antecubital; vg1 12:00 Follow up: Response: No adverse reaction; Pain is decreased vg1 11:54 Drug: NS 0.9% 1000 ml Route: IV; Rate: 1000 ml; Site: right antecubital; vg1 13:14 Follow up: IV Status: Completed infusion; IV Intake: 1000ml vg1 Disposition: 17:27 Co-signature as Attending Physician, Leodan Maynard MD. rn Disposition: 08/28/20 13:00 Discharged to Home. Impression: Low back pain. - Condition is Stable. - Discharge Instructions: Back Pain, Adult, [id number]. - Prescriptions for Cyclobenzaprine 10 mg Oral Tablet - take 1 tablet by ORAL route every 8 hours As needed; 21 tablet. Diclofenac Sodium 75 mg Oral Tablet, Delayed Release (E.C.) - take 1 tablet by ORAL route 2 times per day As needed; 30 tablet. - Medication Reconciliation Form, Thank You Letter, Antibiotic Education, Prescription Opioid Use form. - Follow up: Private Physician; When: 2 - 3 days; Reason: Recheck today's complaints, Continuance of care, Re-evaluation by your physician. Follow up: Emergency Department; When: As needed; Reason: Worsening of condition. Signatures: Dispatcher [employer] [facility] Peyton Crisostomo, MINDA LIBRARIAN HEAD-Leodan Espitia MD MD rn Davies, Jonathon RN RN jd3 Betty Tyler RN RN vg1 Corrections: (The following items were deleted from the chart) 11:36 11:15 Spine Lumbar Wo [id number].[id number] ordered. [facility] 13:16 13:00 08/28/2020 13:00 Discharged to Home. Impression: Low back pain. Condition is vg1 Stable. Forms are Medication Reconciliation Form, Thank You Letter, Antibiotic Education, Prescription Opioid Use. Follow up: Private Physician; When: 2 - 3 days; Reason: Recheck today's complaints, Continuance of care, Re-evaluation by your physician. Follow up: Emergency Department; When: As needed; Reason: Worsening of condition. kb
[2020-08-28 13:35] VITALS: TEMP 97.5
[2020-08-28 13:40] VITALS: BP 121/51; O2SAT 100
== END 2020-08-28 13:16 | disposition home or self-care (01) ==
LOC: ER 10:21
DX: M54.5 Low back pain (principal); R10.9 Unspecified abdominal pain; I10 Essential (primary) hypertension; Z88.5 Allergy status to narcotic agent; Z88.7 Allergy status to serum and vaccine; Z88.8 Allergy status to other drugs, medicaments and biological substances
CPT/HCPCS: 85025; 80048; 36415; 82565; 80076; 83690; 74177; J7030; J2405; 81003; 81015; 96361; 96374; 96375; 99284